=== PATIENT | male | born 1955 | race Caucasian/White ===

== ENCOUNTER 2017-08-12 18:04 | Inpatient (IN) ==
[2017-08-12] MEDS ORDERED: *HR* Dextrose 50 % in Water (Syg) 50 ML SYRINGE IVP PRN (22:37)
[2017-08-12] MEDS ORDERED: Dextrose Gel 15 GM/37.5 ML TUBE PO PRN ×2 (22:37)
[2017-08-12] MEDS ORDERED: D5% in Water 1,000 ML IVC PRN (22:37)
[2017-08-12] MEDS ORDERED: Nitroglycerin 0.4 MG TAB.SUBL SL PRN (22:38)
[2017-08-12] MEDS: *HR* HYDROcodone/Acet 5/325 mg TABLET PO PRN (23:28)
[2017-08-13] MEDS: *HR* Heparin 5,000 UNIT/ML VIAL SQ SCH ×2 (05:53→17:51)
[2017-08-13] MEDS: *HR* HYDROcodone/Acet 5/325 mg TABLET PO PRN ×2 (05:53→22:03)
[2017-08-13 07:19] LABS: Basophils % 0.2 %; Eosinophils # 0.2 K/mcL (0.0-0.6); Eosinophils % 1.2 %; Hematocrit 42.6 % (37.5-50.1); Immature Granulocytes % 0.6 % (0-4); Lymphocytes # 1.4 K/mcL (0.6-4.6); Lymphocytes % 11.5 %; Mean Corpuscular HGB Conc 32.9 g/dL (31.6-35.5); Mean Corpuscular Hemoglobin 27.2 pg (28.0-33.3); Mean Corpuscular Volume 82.9 fL (83.0-100.0); Mean Platelet Volume 9.2 fL (9.4-12.4); Monocytes # 0.8 K/mcL (0.0-1.3); Monocytes % 6.5 %; Platelet Count 252 K/mcL (140-400); Red Blood Count 5.14 M/mcL (4.19-5.50)
[2017-08-13 07:26] LABS: BUN/Creatinine Ratio 20 (6-26); Blood Urea Nitrogen 18 mg/dL (8-23); Calcium 9.4 mg/dL (8.6-10.3); Carbon Dioxide 27 mEq/L (23-29); Chloride 100 mEq/L (98-107); Glucose 155 mg/dL (70-105); Osmolality,Calculated 283 (280-300); Potassium 3.8 mEq/L (3.5-5.1); Sodium 134 mEq/L (136-145); eGFR For African Americans > 60 (> 60); eGFR For Non-African Americans > 60 (> 60)
[2017-08-13] MEDS: *HR* Metformin 500 MG TABLET PO SCH ×2 (08:05→17:46)
[2017-08-13] MEDS: Aspirin 81 MG TAB.CHEW PO SCH (08:05)
[2017-08-13] MEDS: Nicotine 21 MG PATCH.TD24 TD SCH (08:05)
[2017-08-13] MEDS: Insulin LISPRO 300 UNITS/3 ML VIAL SQ SCH ×4 (08:08→22:06)
[2017-08-13 08:11] LABS: Activated Partial Thrombo Time 31.8 Seconds (26.0-36.0); INR 1.1; Prothrombin Time 12.4 Seconds (9.4-12.1)
--- NOTE | 2017-08-13 13:26 | Internal Med History&Physical ---
Date of Encounter: 08/13/17 Time of Encounter: 13:24 Assessment and Plan (1) CVA (cerebral vascular accident) Current visit: Yes Status: Acute Patient is an admission from [facility] for rehabilitation due to secondary to CVA. Patient has right hemiparesis and expressive aphasia has residual. Patient's neurological exam appears unchanged from exams while hospitalized. Patient currently denies any discomforts or shortness of breath. Physical therapy evaluation pending with recommendations. We will have speech therapy evaluate. Will continue with current medications. We will have a goal to keep systolic blood pressure less than 160. Patient to continue on DVT prophylaxis Qualifiers: CVA mechanism: unspecified Qualified Code(s): I63.9 - Cerebral infarction, unspecified (2) Diabetes Current visit: Yes Status: Acute No acute issues. Patient to continue on fingersticks with SSI coverage. We will continue to monitor Qualifiers: Diabetes mellitus type: type 2 Diabetes mellitus usp insulin use: without superintendent terminal use Diabetes mellitus complication status: with unspecified complications Qualified Code(s): E11.8 - Type 2 diabetes mellitus with unspecified complications (3) Hypertension Current visit: Yes Status: Acute Patient said several blood pressure readings greater than 160 systolic. We will continue to monitor closely. We will start when necessary clonidine. Qualifiers: Hypertension type: essential hypertension Qualified Code(s): I10 - Essential (primary) hypertension Internal Medicine - H&P: HPI Admitted From: Intrahospital Transfer Plans for Post Hospital Care: Home History of present illness: Mr. Thompson is a 62 year old male who was transferred here from an [facility] where he was treated for a left CVA. Per medical records patient recovered well while at Hospital and continues with right hemiparesis and right facial droop. Slight expressive aphasia. Patient currently denies any discomforts or shortness of breath. Patient states he has no trouble with swallowing. Patient states a history of hypertension and diabetes. Patient states he was not very compliant with his diabetic medications or monitoring prior to his admission. Past Med Surg Social Fam HX - Past Medical History Medical history: diabetes, hypertension Psychiatric history: no psych history - Social History Smoking Status: Current every day smoker Packs per day: 3 Smokeless Tobacco Status: No Alcohol use: occasionally Drug use: none - Family History Father Family Member Ethnicity: Non- Living Status: Age at : 84 Cause of : heart attack Hx Family Cardiac Disorders: Yes Internal Medicine - H&P: Meds 3 Allergy/AdvReac Type Severity Reaction Status Date / Time No Known Allergies Allergy Verified 08/12/17 21:59 All Systems PM: A 10-system review of systems was performed and is negative for pertinent findings except as documented above in the HPI. - Constitutional Constitutional: as per HPI, no chills, no fever(s), no night sweats - EENT Eyes: no change in vision, no discharge, no pain, no photophobia Ears: no ear discharge, no ear pain, no tinnitus Nose, mouth and throat: no dysphagia, no nasal discharge, no neck pain, no sore throat - Cardiovascular Cardiovascular ROS IM: as per HPI, no chest pain, no diaphoresis, no dyspnea, no lightheadedness, no palpitations, no syncope - Respiratory Respiratory: as per HPI, no cough, no dyspnea, no wheezing, no excessive phlegm production - Gastrointestinal Gastrointestinal: no abdominal pain, no diarrhea, no hematemesis, no hematochezia, no melena, no nausea, no vomiting - Musculoskeletal Musculoskeletal ROS IM: no numbness, no tingling - Integumentary Integumentary IM: no rash, no unusual bruising - Neurological Neurological ROS: no confusion, no convulsions, no focal weakness, no numbness, no tingling, no tremor(s) - Endocrine Endocrine IM: as per HPI - Hematologic/Lymphatic Hematologic/Lymphatic: no easy bruising - Constitutional Vitals: Temp Pulse Resp BP Pulse Ox 98.0 F 75 16 143/85 92 08/13/17 07:58 08/13/17 08:58 08/13/17 08:58 08/13/17 10:00 08/13/17 08:58 General appearance: Present: A&O X 3, pleasant - Head Head exam: Present: atraumatic, normocephalic - Eye Eye exam: Present: PERRL, conjuntiva pink, sclera anicteric Pupils: Present: PERRL - Neck Neck exam general surgery: Present: supple, trachea midline. Absent: lymphadenopathy - Respiratory Respiratory exam: Present: CTAB. Absent: accessory muscle use, rales, rhonchi, wheezes Additional comments: Lungs clear throughout upper vitals undiminished to bases. Respiratory effort appears relaxed. - Cardiovascular Cardiovascular exam: Present: RRR, +S1, +S2. Absent: diastolic murmur, gallop, rubs, systolic murmur - GI/Abdominal GI/Abdominal exam: Present: normal bowel sounds, soft, no peritoneal signs. Absent: distended, tenderness - Extremities Exam Extremities exam: Present: warm, radial pulses palpable and symmetrical. Absent : calf tenderness, cyanotic, pedal edema - Neurological Exam Neurological exam: Present: CN II-XII intact, oriented X3, facial droop. Absent : pronater drift, speech deficit Additional comments: Patient shows right hemiparesis with RUE 1/5, RLE 3/5 and MS of LE 5/5. Slight right facial droop and expressive aphasia, although speech is very comprehensible. - Skin Skin exam: Present: dry, intact Internal Med - H&P Results - Labs CBC & Chem 7: 08/13/17 06:48 08/13/17 06:48 Labs: Short CBC 08/13/17 Range/Units 06:48 WBC 12.5 H (4.3-11.1) K/mcL Hgb 14.0 (12.9-16.9) g/dL Hct 42.6 (37.5-50.1) % Plt Count 252 (140-400) K/mcL Neutrophils # 10.0 H (1.6-8.9) K/mcL BMP 08/13/17 06:48 Sodium 134 L Potassium 3.8 Chloride 100 Carbon Dioxide 27 BUN 18 Creatinine 0.90 Glucose 155 H Calcium 9.4
[2017-08-14] MEDS: *HR* Heparin 5,000 UNIT/ML VIAL SQ SCH ×2 (05:52→17:43)
[2017-08-14] MEDS: *HR* HYDROcodone/Acet 5/325 mg TABLET PO PRN ×2 (05:53→21:47)
[2017-08-14] MEDS: Insulin LISPRO 300 UNITS/3 ML VIAL SQ SCH ×4 (08:01→21:48)
[2017-08-14] MEDS: Nicotine 21 MG PATCH.TD24 TD SCH (08:03)
[2017-08-14] MEDS: *HR* Metformin 500 MG TABLET PO SCH ×2 (08:03→17:43)
[2017-08-14] MEDS: Aspirin 81 MG TAB.CHEW PO SCH (08:04)
[2017-08-14] MEDS ORDERED: Ondansetron ODT 4 MG TAB.RAPDIS SL PRN (10:47)
--- NOTE | 2017-08-14 10:50 | Internal Med Progress Note ---
Date of Encounter: 08/14/17 Time of Encounter: 10:43 - Assessment and plan (1) CVA (cerebral vascular accident) Current Visit: Yes Status: Acute Assessment and plan: Patient continues with this right hemiparesis and noted slight expressive aphasia. No acute neurological changes noted on exam. Patient to continue with speech therapy and physical therapy. Patient continues to progress well with physical therapy. Qualifiers: CVA mechanism: unspecified Qualified Code(s): I63.9 - Cerebral infarction, unspecified (2) Diabetes Current Visit: Yes Status: Acute Assessment and plan: No acute issues. Patient continues with fingersticks with SSI coverage. 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 Patient continues slightly elevated systolic blood pressure mostly 150-160. Continue to monitor closely Qualifiers: Hypertension type: essential hypertension Qualified Code(s): I10 - Essential (primary) hypertension (4) Nausea Current Visit: Yes Status: Acute Assessment and plan: Patient complaints of malaise and nausea this morning. Denies any vomiting or change in bowel habits. No abdominal tenderness noted and bowel sounds normal. We will medicate with Zofran when necessary - Time Spent With Patient less than 15 minutes - Subjective Interval history: Patient appears relaxed. He c/o of feeling "run down" today with abdominal cramping and nausea. States that his nausea began after breakfast. Denies any vomiting. Denies any acute neuro changes. - Constitutional Vitals: Temp Pulse Resp BP Pulse Ox 97.9 F 79 18 153/92 93 08/14/17 09:00 08/14/17 09:00 08/14/17 09:00 08/14/17 09:00 08/14/17 09:00 General appearance: Present: A&O X 3, pleasant - Head Head exam: Present: atraumatic, normocephalic - Eye Eye exam: Present: PERRL, conjuntiva pink, sclera anicteric Pupils: Present: PERRL - Neck Neck exam general surgery: Present: supple, trachea midline. Absent: lymphadenopathy - Respiratory Respiratory exam: Present: CTAB. Absent: accessory muscle use, rales, rhonchi, wheezes - Cardiovascular Cardiovascular exam: Present: RRR, +S1, +S2. Absent: diastolic murmur, gallop, rubs, systolic murmur - GI/Abdominal GI/Abdominal exam: Present: normal bowel sounds, soft, no peritoneal signs. Absent: distended, tenderness - Extremities Exam Extremities exam: Present: warm, radial pulses palpable and symmetrical. Absent : calf tenderness, cyanotic, pedal edema - Neurological Exam Neurological exam: Present: CN II-XII intact, oriented X3, facial droop, speech deficit. Absent: pronater drift Additional comments: Patient continues with right sided facial droop and slight expressive aphasia. Right hemiparesis with RUE 2/5, RLE 3/5 and LE 5/5 - Skin Skin exam: Present: dry, intact Internal Medicine: Result - Labs CBC & Chem 7: 08/13/17 06:48 08/13/17 06:48 - ABG Interpretation ABG results: PT/INR, D-dimer PT 12.4 Seconds (9.4-12.1) H 08/13/17 06:48 Consult Discharge Plan - Plan Referrals: Ambika Underwood MD [Primary Care Provider] -
[2017-08-15] MEDS: *HR* Heparin 5,000 UNIT/ML VIAL SQ SCH ×2 (05:42→17:13)
[2017-08-15] MEDS: Insulin LISPRO 300 UNITS/3 ML VIAL SQ SCH ×4 (08:03→20:48)
[2017-08-15] MEDS: Aspirin 81 MG TAB.CHEW PO SCH (08:12)
[2017-08-15] MEDS: Nicotine 21 MG PATCH.TD24 TD SCH (08:12)
[2017-08-15] MEDS: *HR* Metformin 500 MG TABLET PO SCH ×2 (08:12→17:13)
[2017-08-15] MEDS: *HR* HYDROcodone/Acet 5/325 mg TABLET PO PRN ×2 (08:20→22:27)
--- NOTE | 2017-08-15 08:44 | Internal Med Progress Note ---
Date of Encounter: 08/15/17 Time of Encounter: 08:42 - Assessment and plan (1) Obesity Current Visit: Yes Status: Chronic Assessment and plan: advice diet control and increase in exercise to decrease his weight he seems motovated . 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 Diabetes mellitus complication status: with unspecified complications Qualified Code(s): E11.8 - Type 2 diabetes mellitus with unspecified complications (3) Hypertension Current Visit: Yes Status: Acute Assessment and plan: Systolic is high Add Henrique and HTCZ and followup target is close to 130 ideal less then 120 due to his DM only if he can tolerate Not on any meds noted Qualifiers: Hypertension type: essential hypertension Qualified Code(s): I10 - Essential (primary) hypertension (4) CVA (cerebral vascular accident) Current Visit: Yes Status: Acute Qualifiers: CVA mechanism: unspecified Qualified Code(s): I63.9 - Cerebral infarction, unspecified - Subjective Interval history: Cosss coverage no new compllains . no chest pain Nausea vomiting or diarrhea he i afebrile . - Constitutional Vitals: Temp Pulse Resp BP Pulse Ox 97.9 F 71 18 185/70 96 08/15/17 07:00 08/15/17 07:00 08/15/17 07:00 08/15/17 07:00 08/15/17 07:00 General appearance: Present: A&O X 3, morbidly obese, pleasant, answers questions appropriately - Head Head exam: Present: atraumatic - Eye Eye exam: Present: EOMI, PERRL - Neck Neck exam general surgery: Present: supple. Absent: tenderness, nuchal rigidity - Respiratory Respiratory exam: Present: CTAB. Absent: decreased breath sounds, respiratory distress, rhonchi, wheezes, tachypnea - Cardiovascular Cardiovascular exam: Present: RRR, +S1, +S2. Absent: irregular rhythm, JVD, systolic murmur, tachycardia - GI/Abdominal GI/Abdominal exam: Present: normal bowel sounds, soft. Absent: distended, firm , guarding, rebound, tenderness - Extremities Exam Extremities exam: Absent: pedal edema, tenderness - Neurological Exam Neurological exam: Present: oriented X3, facial droop (left side weakness ). Absent: speech deficit Internal Medicine: Result - Labs CBC & Chem 7: 08/13/17 06:48 08/13/17 06:48 - ABG Interpretation ABG results: PT/INR, D-dimer PT 12.4 Seconds (9.4-12.1) H 08/13/17 06:48 Consult Discharge Plan - Plan Referrals: Ambika Underwood MD [Primary Care Provider] -
[2017-08-15] MEDS: Lisinopril-HCTZ 20-12.5mg TABLET PO SCH (10:18)
[2017-08-16] MEDS: *HR* Heparin 5,000 UNIT/ML VIAL SQ SCH ×2 (07:00→16:34)
[2017-08-16] MEDS: Insulin LISPRO 300 UNITS/3 ML VIAL SQ SCH ×4 (08:54→21:03)
[2017-08-16] MEDS: Nicotine 21 MG PATCH.TD24 TD SCH (09:00)
[2017-08-16] MEDS: *HR* Metformin 500 MG TABLET PO SCH ×2 (09:00→16:31)
[2017-08-16] MEDS: Lisinopril-HCTZ 20-12.5mg TABLET PO SCH (09:01)
[2017-08-16] MEDS: Aspirin 81 MG TAB.CHEW PO SCH (09:01)
--- NOTE | 2017-08-16 09:50 | Internal Med Progress Note ---
Date of Encounter: 08/16/17 Time of Encounter: 09:48 - Assessment and plan (1) Obesity Current Visit: Yes Status: Chronic Assessment and plan: No new changes . continue to help in controlling his diet . Qualifiers: Obesity type: due to excess calories Qualified Code(s): E66.01 - Morbid ( severe) obesity due to excess calories; Z68.35 - Body mass index (BMI) 35.0-35.9 , adult; Z68.35 - Body mass index (BMI) 35.0-35.9, adult (2) Diabetes Current Visit: Yes Status: Chronic Assessment and plan: on insulin and oral meds Blood sugars some what high continue to monitor and adjust his doses as needed. UA ordered Qualifiers: Diabetes mellitus type: type 2 Diabetes mellitus rn long term care insulin use: without rn long term care use Diabetes mellitus complication status: with unspecified complications Qualified Code(s): E11.8 - Type 2 diabetes mellitus with unspecified complications (3) Hypertension Current Visit: Yes Status: Acute Assessment and plan: Stable . No new change . Continue present meds Qualifiers: Hypertension type: essential hypertension Qualified Code(s): I10 - Essential (primary) hypertension (4) CVA (cerebral vascular accident) Current Visit: Yes Status: Acute Assessment and plan: stable right weakness upper more then lower. Risk stratification Qualifiers: CVA mechanism: unspecified Qualified Code(s): I63.9 - Cerebral infarction, unspecified - Subjective Interval history: Cross coverage , slept well no acute issues no fever or chills or any other complains. Noted to have mildly increase in WBC - Constitutional Vitals: Temp Pulse Resp BP Pulse Ox 98.7 F 74 16 146/81 91 08/15/17 18:56 08/15/17 18:56 08/15/17 18:56 08/15/17 18:56 08/15/17 18:56 General appearance: Present: A&O X 3, morbidly obese, pleasant, answers questions appropriately - Head Head exam: Present: atraumatic - Eye Eye exam: Present: EOMI, PERRL. Absent: scleral icterus, conjuntiva pink, sclera anicteric Pupils: Present: PERRL - Neck Neck exam general surgery: Present: full ROM, supple. Absent: tenderness, nuchal rigidity - Respiratory Respiratory exam: Present: CTAB. Absent: accessory muscle use, chest wall tenderness, decreased breath sounds, respiratory distress, rhonchi, stridor, wheezes, tachypnea - Cardiovascular Cardiovascular exam: Present: RRR, +S1, +S2, +S3. Absent: irregular rhythm, JVD , rubs, systolic murmur - GI/Abdominal GI/Abdominal exam: Present: normal bowel sounds, soft. Absent: distended, firm , guarding, rigid, tenderness, no peritoneal signs - Extremities Exam Extremities exam: Present: pedal edema Additional comments: minimal both side - Neurological Exam Neurological exam: Present: alert, CN II-XII intact, oriented X3, facial droop Additional comments: right side upper arm more weakness then leg Internal Medicine: Result - Labs CBC & Chem 7: 08/13/17 06:48 08/13/17 06:48 - ABG Interpretation ABG results: PT/INR, D-dimer PT 12.4 Seconds (9.4-12.1) H 08/13/17 06:48 Consult Discharge Plan - Plan Referrals: Ambika Underwood MD [Primary Care Provider] -
[2017-08-16] MEDS: *HR* HYDROcodone/Acet 5/325 mg TABLET PO PRN ×2 (15:19→22:00)
[2017-08-16 16:12] LABS: Bilirubin,Urine Negative (Negative); Blood,Urine Negative (Negative); Clarity,Urine Clear (Clear); Color,Urine Yellow (Yellow); Glucose,Urine (UA) Normal (Normal); Ketones,Urine Negative (Negative); Leukocyte Esterase,Urine Negative (Negative); Nitrite,Urine Negative (Negative); PH,Urine 5.5 pH Units (5.0-8.0); Protein,Urine 100 mg/dL (Neg-Trace); Specific Gravity,Urine 1.025 (1.010-1.025); Urobilinogen,Urine Normal (Normal)
[2017-08-16 16:21] LABS: Mucus,Urine Few (Few); WBC,Urine 0-3 per hpf (0-3)
[2017-08-17 05:44] LABS: Hematocrit 39.2 % (37.5-50.1); Hemoglobin 12.9 g/dL (12.9-16.9); Mean Corpuscular HGB Conc 32.9 g/dL (31.6-35.5); Mean Corpuscular Hemoglobin 27.4 pg (28.0-33.3); Mean Corpuscular Volume 83.4 fL (83.0-100.0); Mean Platelet Volume 9.2 fL (9.4-12.4); Platelet Count 268 K/mcL (140-400); Red Cell Distribution Width 15.8 % (11.5-14.5)
[2017-08-17] MEDS: *HR* Heparin 5,000 UNIT/ML VIAL SQ SCH ×2 (05:53→17:14)
[2017-08-17] MEDS: Aspirin 81 MG TAB.CHEW PO SCH (08:43)
[2017-08-17] MEDS: Nicotine 21 MG PATCH.TD24 TD SCH (08:43)
[2017-08-17] MEDS: Lisinopril-HCTZ 20-12.5mg TABLET PO SCH (08:43)
[2017-08-17] MEDS: *HR* Metformin 500 MG TABLET PO SCH ×2 (08:43→17:14)
[2017-08-17] MEDS: Insulin LISPRO 300 UNITS/3 ML VIAL SQ SCH ×4 (08:45→21:44)
--- NOTE | 2017-08-17 13:50 | Internal Med Progress Note ---
Date of Encounter: 08/17/17 Time of Encounter: 13:48 - Assessment and plan (1) CVA (cerebral vascular accident) Current Visit: Yes Status: Acute Assessment and plan: Continue PT\OT\ST. Will follow progress. Follow up with neuro scheduled. Qualifiers: CVA mechanism: unspecified Qualified Code(s): I63.9 - Cerebral infarction, unspecified (2) Diabetes Current Visit: Yes Status: Chronic Assessment and plan: Controlled. Continue to monitor fingerstick blood sugar. Continue current medications. Will adjust as necessary. Qualifiers: Diabetes mellitus type: type 2 Diabetes mellitus adjunct faculty for medical terminology insulin use: without adjunct faculty for medical terminology use Diabetes mellitus complication status: with unspecified complications Qualified Code(s): E11.8 - Type 2 diabetes mellitus with unspecified complications (3) Hypertension Current Visit: Yes Status: Acute Assessment and plan: Controlled with current medication. Continue to monitor blood pressure. Qualifiers: Hypertension type: essential hypertension Qualified Code(s): I10 - Essential (primary) hypertension (4) Obesity Current Visit: Yes Status: Chronic Assessment and plan: Will have dietary consult for education on diet planning. Qualifiers: Obesity type: due to excess calories Qualified Code(s): E66.01 - Morbid ( severe) obesity due to excess calories; Z68.35 - Body mass index (BMI) 35.0-35.9 , adult; Z68.35 - Body mass index (BMI) 35.0-35.9, adult - Time Spent With Patient 25 - 35 minutes - Subjective Interval history: Participating well with therapy. Continues to have right-sided weakness. Slight facial weakness and dysarthria. Denies any pain. No new neurological deficits at this time. Therapy reports that ankle is rolling during transfers. Will recommend AFO. States last bowel movement was 2 days ago. Maintaining appetite and hydration. - Constitutional Vitals: Temp Pulse Resp BP Pulse Ox 97.9 F 69 18 159/84 93 08/17/17 07:32 08/17/17 07:32 08/17/17 07:32 08/17/17 07:32 08/17/17 07:32 General appearance: Present: A&O X 3, morbidly obese, pleasant, answers questions appropriately Exam: Slight facial weakness was slight dysarthria. - Head Head exam: Present: atraumatic, normocephalic - Eye Eye exam: Present: PERRL, conjuntiva pink, sclera anicteric Pupils: Present: PERRL - Neck Neck exam general surgery: Present: supple, trachea midline. Absent: lymphadenopathy - Respiratory Respiratory exam: Present: CTAB. Absent: accessory muscle use, rales, rhonchi, wheezes - Cardiovascular Cardiovascular exam: Present: RRR, +S1, +S2. Absent: diastolic murmur, gallop, rubs, systolic murmur - GI/Abdominal GI/Abdominal exam: Present: normal bowel sounds, soft, no peritoneal signs. Absent: distended, tenderness - Extremities Exam Extremities exam: Present: warm, radial pulses palpable and symmetrical. Absent : calf tenderness, cyanotic, pedal edema Additional comments: Right-sided weakness. - Neurological Exam Neurological exam: Present: CN II-XII intact, oriented X3, no focal deficits. Absent: pronater drift, facial droop, speech deficit - Skin Skin exam: Present: dry, intact Internal Medicine: Result - Labs CBC & Chem 7: 08/17/17 05:10 08/13/17 06:48 Labs: Short CBC 08/17/17 Range/Units 05:10 WBC 11.2 H (4.3-11.1) K/mcL Hgb 12.9 (12.9-16.9) g/dL Hct 39.2 (37.5-50.1) % Plt Count 268 (140-400) K/mcL Urine 08/16/17 Range/Units 15:54 Urine Color Yellow (Yellow) Urine Clarity Clear (Clear) Urine pH 5.5 (5.0-8.0) pH Units Ur Specific [place] 1.025 (1.010-1.025) Urine Protein 100 H (Neg-Trace) mg/dL Urine Glucose (UA) Normal (Normal) mg/dL - ABG Interpretation ABG results: PT/INR, D-dimer PT 12.4 Seconds (9.4-12.1) H 08/13/17 06:48 Consult Discharge Plan - Plan Referrals: Ambika Underwood MD [Primary Care Provider] -
--- NOTE | 2017-08-17 17:42 | Physcial Medicine-Consult Note ---
Date of Encounter: 08/17/17 Time of Encounter: 15:40 Physical Medicine - HPI - Data of Consult Requesting Physician: Bob Singh MD Primary Care Provider: Ambika Underwood MD - Consult Narrative History of present illness: Mr. Thompson is a 62 year old male who was transferred here from an [facility] where he was treated for a left CVA. Per medical records patient recovered well while at Hospital and continues with right hemiparesis and right facial droop. Slight expressive aphasia. Patient currently denies any discomforts or shortness of breath. Patient states he has no trouble with swallowing. Patient states a history of hypertension and diabetes. Patient states he was not very compliant with his diabetic medications or monitoring prior to his admission. CC: Bob Singh MD Past Med Surg Social Fam HX - Past Medical History Medical history: diabetes, hypertension Psychiatric history: no psych history - Social History Smoking Status: Current every day smoker Packs per day: 3 Smokeless Tobacco Status: No Alcohol use: occasionally Drug use: none - Family History Father Family Member Ethnicity: Non- Living Status: Age at : 84 Cause of : heart attack Hx Family Cardiac Disorders: Yes Medications and Allergies 3 Allergy/AdvReac Type Severity Reaction Status Date / Time No Known Allergies Allergy Verified 08/12/17 21:59 All systems: reviewed and no additional remarkable complaints except as stated ( Weakness) Physical Medicine - Exam - Constitutional Vitals: Temp Pulse Resp BP Pulse Ox 97.9 F 69 18 159/84 93 08/17/17 07:32 08/17/17 07:32 08/17/17 07:32 08/17/17 07:32 08/17/17 07:32 General appearance: cooperative, morbidly obese, no acute distress - Head Head exam: Present: atraumatic, normocephalic - Eye Eye exam: Present: EOMI - ENT ENT exam: Present: mucous membranes moist - Neck Neck exam: Present: full ROM - Respiratory Respiratory exam: Present: CTAB - Cardiovascular Cardiovascular exam: Present: RRR. Absent: diastolic murmur, rubs, systolic murmur - GI/Abdominal GI/Abdominal exam: Present: normal bowel sounds, soft - Extremities Exam Extremities exam: Present: full ROM. Absent: calf tenderness Additional comments: RUE 3/5 strength. RLE 4/5 - Neurological Exam Neurological exam: Present: abnormal gait, alert, motor sensory deficit, oriented X3, reflexes normal, facial droop. Absent: CN II-XII intact Additional comments: Sensation intact. - Psychiatric Psychiatric exam: Present: normal affect, normal mood - Skin Skin exam: Present: intact Physical Medicine - Results - Labs CBC & Chem 7: 08/17/17 05:10 08/13/17 06:48 Labs: Short CBC 08/17/17 Range/Units 05:10 WBC 11.2 H (4.3-11.1) K/mcL Hgb 12.9 (12.9-16.9) g/dL Hct 39.2 (37.5-50.1) % Plt Count 268 (140-400) K/mcL Consult Discharge Plan - Plan Referrals: Ambika Underwood MD [Primary Care Provider] -
[2017-08-17] MEDS: *HR* HYDROcodone/Acet 5/325 mg TABLET PO PRN (22:27)
[2017-08-18] MEDS: *HR* Heparin 5,000 UNIT/ML VIAL SQ SCH ×2 (05:09→17:59)
[2017-08-18] MEDS: *HR* HYDROcodone/Acet 5/325 mg TABLET PO PRN ×2 (05:16→21:22)
[2017-08-18 06:46] LABS: Thyroid Stimulating Hormone 2.245 mcIU/mL (0.340-5.600)
[2017-08-18] MEDS: Nicotine 21 MG PATCH.TD24 TD SCH (08:40)
[2017-08-18] MEDS: *HR* Metformin 500 MG TABLET PO SCH ×2 (08:41→17:04)
[2017-08-18] MEDS: Aspirin 81 MG TAB.CHEW PO SCH (08:42)
[2017-08-18] MEDS: Lisinopril-HCTZ 20-12.5mg TABLET PO SCH (08:42)
[2017-08-18] MEDS: Insulin LISPRO 300 UNITS/3 ML VIAL SQ SCH ×3 (08:42→17:00)
--- NOTE | 2017-08-18 12:34 | Internal Med Progress Note ---
Date of Encounter: 08/18/17 Time of Encounter: 12:32 - Assessment and plan (1) CVA (cerebral vascular accident) Current Visit: Yes Status: Acute Assessment and plan: Slight right patient drip with right-sided upper and lower extremity weakness. Continue PT\OT\ST. Will follow progress. Follow up with neuro scheduled. Qualifiers: CVA mechanism: unspecified Qualified Code(s): I63.9 - Cerebral infarction, unspecified (2) Diabetes Current Visit: Yes Status: Chronic Assessment and plan: Controlled. Blood sugars running between 85 and 150. Sliding scale discontinued. Continue to monitor fingerstick blood sugar. Continue current medications. Will adjust as necessary. Qualifiers: Diabetes mellitus type: type 2 Diabetes mellitus fci insulin use: without fci use Diabetes mellitus complication status: with unspecified complications Qualified Code(s): E11.8 - Type 2 diabetes mellitus with unspecified complications (3) Hypertension Current Visit: Yes Status: Acute Assessment and plan: Controlled with current medication. Continue to monitor blood pressure. Qualifiers: Hypertension type: essential hypertension Qualified Code(s): I10 - Essential (primary) hypertension (4) Obesity Current Visit: Yes Status: Chronic Assessment and plan: Will have dietary consult for education on diet planning. Qualifiers: Obesity type: due to excess calories Qualified Code(s): E66.01 - Morbid ( severe) obesity due to excess calories; Z68.35 - Body mass index (BMI) 35.0-35.9 , adult; Z68.35 - Body mass index (BMI) 35.0-35.9, adult - Time Spent With Patient 25 - 35 minutes - Subjective Interval history: Participating well with therapy. Continues to have right-sided weakness. Slight facial weakness and dysarthria. Denies any pain. No new neurological deficits at this time. Therapy reports that ankle is rolling during transfers, patient states that his ankle has always been weak and has rolled for years. Will recommend AFO. States last bowel movement was 3 days ago. Maintaining appetite and hydration. Discussed diet education and medication compliance. Patient states he wants to change lifestyle and lose weight. - Constitutional Vitals: Temp Pulse Resp BP Pulse Ox 97.6 F 68 16 158/85 94 08/18/17 07:00 08/18/17 07:00 08/18/17 07:00 08/18/17 07:00 08/18/17 07:00 General appearance: Present: A&O X 3, morbidly obese, pleasant, answers questions appropriately - Head Head exam: Present: atraumatic, normocephalic - Eye Eye exam: Present: PERRL, conjuntiva pink, sclera anicteric Pupils: Present: PERRL - Neck Neck exam general surgery: Present: supple, trachea midline. Absent: lymphadenopathy - Respiratory Respiratory exam: Present: CTAB. Absent: accessory muscle use, rales, rhonchi, wheezes - Cardiovascular Cardiovascular exam: Present: RRR, +S1, +S2. Absent: diastolic murmur, gallop, rubs, systolic murmur - GI/Abdominal GI/Abdominal exam: Present: normal bowel sounds, soft, no peritoneal signs. Absent: distended, tenderness - Extremities Exam Extremities exam: Present: warm, radial pulses palpable and symmetrical. Absent : calf tenderness, cyanotic, pedal edema - Neurological Exam Neurological exam: Present: CN II-XII intact, oriented X3. Absent: pronater drift, facial droop, speech deficit Additional comments: Slight right facial droop. Right-sided weakness. Strength in right upper arm and right lower extremity 3/ 5 - Skin Skin exam: Present: dry, intact Internal Medicine: Result - Labs CBC & Chem 7: 08/17/17 05:10 08/13/17 06:48 - ABG Interpretation ABG results: PT/INR, D-dimer PT 12.4 Seconds (9.4-12.1) H 08/13/17 06:48 Consult Discharge Plan - Plan Referrals: Ambika Underwood MD [Primary Care Provider] -
[2017-08-19] MEDS: *HR* Heparin 5,000 UNIT/ML VIAL SQ SCH ×2 (04:59→18:00)
[2017-08-19] MEDS: Insulin LISPRO 300 UNITS/3 ML VIAL SQ SCH ×3 (07:48→17:12)
[2017-08-19] MEDS: Nicotine 21 MG PATCH.TD24 TD SCH (07:48)
[2017-08-19] MEDS: Lisinopril-HCTZ 20-12.5mg TABLET PO SCH (07:49)
[2017-08-19] MEDS: Aspirin 81 MG TAB.CHEW PO SCH (07:49)
[2017-08-19] MEDS: *HR* Metformin 500 MG TABLET PO SCH ×2 (07:49→18:00)
--- NOTE | 2017-08-19 14:32 | Internal Med Progress Note ---
Date of Encounter: 08/19/17 Time of Encounter: 14:30 - Assessment and plan (1) CVA (cerebral vascular accident) Current Visit: Yes Status: Acute Assessment and plan: Slight right patient drip with right-sided upper and lower extremity weakness. Continue PT\OT\ST. Will follow progress. Follow up with neuro scheduled. Qualifiers: CVA mechanism: unspecified Qualified Code(s): I63.9 - Cerebral infarction, unspecified (2) Diabetes Current Visit: Yes Status: Chronic Assessment and plan: Controlled. Blood sugars running between 85 and 150. Sliding scale discontinued. Continue to monitor fingerstick blood sugar. Continue current medications. Will adjust as necessary. Qualifiers: Diabetes mellitus type: type 2 Diabetes mellitus mcc insulin use: without mcc use Diabetes mellitus complication status: with unspecified complications Qualified Code(s): E11.8 - Type 2 diabetes mellitus with unspecified complications (3) Hypertension Current Visit: Yes Status: Acute Assessment and plan: Controlled with current medication. Continue to monitor blood pressure. Qualifiers: Hypertension type: essential hypertension Qualified Code(s): I10 - Essential (primary) hypertension (4) Obesity Current Visit: Yes Status: Chronic Assessment and plan: Will have dietary consult for education on diet planning. Qualifiers: Obesity type: due to excess calories Qualified Code(s): E66.01 - Morbid ( severe) obesity due to excess calories; Z68.35 - Body mass index (BMI) 35.0-35.9 , adult; Z68.35 - Body mass index (BMI) 35.0-35.9, adult (5) Slow transit constipation Current Visit: Yes Status: Acute Assessment and plan: Continue Colace. Will order senna. Monitor - Time Spent With Patient 25 - 35 minutes - Subjective Interval history: Participating well with therapy. Continues to have right-sided weakness. Slight facial weakness and dysarthria. Denies any pain. No new neurological deficits at this time. Therapy reports that ankle is rolling during transfers, patient states that his ankle has always been weak and has rolled for years. Air cast ordered by animal nutritionist. States last bowel movement was 4 days ago. Offered ducalax suppository. Patient wishes to try without it. Maintaining appetite and hydration. Discussed diet education and medication compliance. Patient states he wants to change lifestyle and lose weight. States did not sleep well last night. Woke up at 3 AM and was not able to get back to sleep. - Constitutional Vitals: Temp Pulse Resp BP Pulse Ox 97.3 F L 70 16 142/94 94 08/19/17 07:00 08/19/17 07:00 08/19/17 07:00 08/19/17 07:00 08/19/17 07:00 General appearance: Present: A&O X 3, morbidly obese, pleasant, answers questions appropriately - Head Head exam: Present: atraumatic, normocephalic - Eye Eye exam: Present: PERRL, conjuntiva pink, sclera anicteric Pupils: Present: PERRL - Neck Neck exam general surgery: Present: supple, trachea midline. Absent: lymphadenopathy - Respiratory Respiratory exam: Present: CTAB. Absent: accessory muscle use, rales, rhonchi, wheezes - Cardiovascular Cardiovascular exam: Present: RRR, +S1, +S2. Absent: diastolic murmur, gallop, rubs, systolic murmur - GI/Abdominal GI/Abdominal exam: Present: normal bowel sounds, soft, no peritoneal signs. Absent: distended, tenderness - Extremities Exam Extremities exam: Present: warm, radial pulses palpable and symmetrical. Absent : calf tenderness, cyanotic, pedal edema Additional comments: Right-sided weakness. Strength 4 out of 5 right lower extremity and 3 out of 5 right upper extremity - Neurological Exam Neurological exam: Present: CN II-XII intact, oriented X3, no focal deficits. Absent: pronater drift, facial droop, speech deficit - Skin Skin exam: Present: dry, intact Internal Medicine: Result - Labs CBC & Chem 7: 08/17/17 05:10 08/13/17 06:48 - ABG Interpretation ABG results: PT/INR, D-dimer PT 12.4 Seconds (9.4-12.1) H 08/13/17 06:48 Consult Discharge Plan - Plan Referrals: Ambika Underwood MD [Primary Care Provider] -
[2017-08-19] MEDS: Sennosides 8.6 MG TABLET PO SCH (14:59)
--- NOTE | 2017-08-19 16:40 | Physical Med Progress Note ---
Date of Encounter: 08/19/17 Time of Encounter: 15:30 Assessment and Plan (1) CVA (cerebral vascular accident) Current Visit: Yes Status: Acute Assessment and plan: Getting good return in Therapy. Continue rehab. Pre gait, pre ADL strengthening. Qualifiers: CVA mechanism: unspecified Qualified Code(s): I63.9 - Cerebral infarction, unspecified (2) Constipation due to neurogenic bowel Current Visit: Yes Status: Acute Assessment and plan: BM+ continue on laxative Physical Medicine-PN: Subj Interval history: No c/o. Happy with his continued improvement. - Constitutional Vitals: Vital Signs Temp Pulse Resp BP Pulse Ox 08/19/17 07:00 97.3 F L 70 16 142/94 94 08/18/17 19:28 97.7 F 70 17 138/77 94 Intake and Output 08/19/17 08/19/17 08/19/17 07:59 15:59 23:59 Intake Total 600 / 600 360 / 360 Output Total 1075 / 1075 400 / 400 Balance -475 / -475 -40 / -40 Intake: Oral 600 / 600 360 / 360 Output: Urine 1075 / 1075 400 / 400 Other: Meal Lunch Percent of Meal Consumed 100% Blood Glucose* 150 123 - Extremities Exam Additional comments: Right side 3+/5 strength, No CCE - Neurological Exam Neurological exam: Present: abnormal gait, alert, motor sensory deficit, oriented X3, facial droop, speech deficit - Psychiatric Psychiatric exam: Present: normal affect, normal mood - Skin Skin exam: Present: intact Physical Medicine-PN: Obj Data - Labs CBC & Chem 7: 08/17/17 05:10 08/13/17 06:48 Labs: Laboratory Results - last 24 hr 08/18/17 08/18/17 08/19/17 16:18 20:14 07:45 POC Glucose 136 H 139 H 150 H 08/19/17 11:32 POC Glucose 123 H Leucocytosis FSBGs fair - ABG Interpretation ABG results: PT/INR, D-dimer PT 12.4 Seconds (9.4-12.1) H 08/13/17 06:48 Consult Discharge Plan - Plan Referrals: Ambika Underwood MD [Primary Care Provider] -
[2017-08-19] MEDS: *HR* HYDROcodone/Acet 5/325 mg TABLET PO PRN ×2 (18:03→22:52)
[2017-08-20] MEDS: *HR* Heparin 5,000 UNIT/ML VIAL SQ SCH ×2 (05:04→17:34)
[2017-08-20] MEDS: Sennosides 8.6 MG TABLET PO SCH ×2 (08:20→20:01)
[2017-08-20] MEDS: Lisinopril-HCTZ 20-12.5mg TABLET PO SCH (08:20)
[2017-08-20] MEDS: Aspirin 81 MG TAB.CHEW PO SCH (08:20)
[2017-08-20] MEDS: Nicotine 21 MG PATCH.TD24 TD SCH (08:21)
[2017-08-20] MEDS: *HR* Metformin 500 MG TABLET PO SCH ×2 (08:21→17:34)
[2017-08-20] MEDS: Insulin LISPRO 300 UNITS/3 ML VIAL SQ SCH ×3 (08:23→18:34)
--- NOTE | 2017-08-20 11:34 | Internal Med Progress Note ---
Date of Encounter: 08/20/17 Time of Encounter: 11:32 - Assessment and plan (1) CVA (cerebral vascular accident) Current Visit: Yes Status: Acute Assessment and plan: Patient continues with this right hemiparesis and noted slight expressive aphasia. Slight increase in MS on RUE, which today shows 2/5. Otherwise MS remains unchanged. Patient had reported issues with his right ankle rolling drained ambulation. Ankle brace is being obtained to maintain alignment. Patient to continue with speech therapy and physical therapy. Patient continues to progress well with physical therapy. Qualifiers: CVA mechanism: unspecified Qualified Code(s): I63.9 - Cerebral infarction, unspecified (2) Diabetes Current Visit: Yes Status: Chronic Assessment and plan: No acute issues. Patient's glucose has been fairly well-controlled with most measurements at 120-150. Patient continues with fingersticks with SSI coverage. Continue with current medication regimen Qualifiers: Diabetes mellitus type: type 2 Diabetes mellitus hide buffer insulin use: without group home use Diabetes mellitus complication status: with unspecified complications Qualified Code(s): E11.8 - Type 2 diabetes mellitus with unspecified complications (3) Hypertension Current Visit: Yes Status: Acute Assessment and plan: No acute issues. Patient continues slightly elevated systolic blood pressure mostly 150-160. Continue to monitor closely Qualifiers: Hypertension type: essential hypertension Qualified Code(s): I10 - Essential (primary) hypertension - Time Spent With Patient less than 15 minutes - Subjective Interval history: Patient appears relaxed and denies any current discomforts or shortness of breath. Patient states that he feels that physical therapy has been going well and that he has had a slight increase in movement on the right arm over the past week. Patient did complain of constipation yesterday but states that that is resolved, stating he had a bowel movement yesterday.. - Constitutional Vitals: Temp Pulse Resp BP Pulse Ox 98 F 62 17 154/89 95 08/20/17 08:57 08/20/17 08:57 08/20/17 08:57 08/20/17 08:57 08/20/17 08:57 General appearance: Present: A&O X 3, morbidly obese, pleasant, answers questions appropriately - Head Head exam: Present: atraumatic, normocephalic - Eye Eye exam: Present: PERRL, conjuntiva pink, sclera anicteric Pupils: Present: PERRL - Neck Neck exam general surgery: Present: supple, trachea midline. Absent: lymphadenopathy - Respiratory Respiratory exam: Present: CTAB. Absent: accessory muscle use, rales, rhonchi, wheezes - Cardiovascular Cardiovascular exam: Present: RRR, +S1, +S2. Absent: diastolic murmur, gallop, rubs, systolic murmur - GI/Abdominal GI/Abdominal exam: Present: normal bowel sounds, soft, no peritoneal signs. Absent: distended, tenderness - Extremities Exam Extremities exam: Present: warm, radial pulses palpable and symmetrical. Absent : calf tenderness, cyanotic, pedal edema - Neurological Exam Neurological exam: Present: CN II-XII intact, oriented X3, speech deficit. Absent: pronater drift, facial droop Additional comments: Patient continues with right hemiparesis, which has improved slightly over the past week. RUE currently shows 2/5, RLE 3/3, LE 5/5. Continued expressive aphasia, but no reports of dysphasia. - Skin Skin exam: Present: dry, intact Internal Medicine: Result - Labs CBC & Chem 7: 08/17/17 05:10 08/13/17 06:48 - ABG Interpretation ABG results: PT/INR, D-dimer PT 12.4 Seconds (9.4-12.1) H 08/13/17 06:48 Consult Discharge Plan - Plan Referrals: Ambika Underwood MD [Primary Care Provider] -
[2017-08-20] MEDS: *HR* HYDROcodone/Acet 5/325 mg TABLET PO PRN ×2 (13:10→22:09)
[2017-08-21] MEDS: *HR* Heparin 5,000 UNIT/ML VIAL SQ SCH ×2 (06:34→19:43)
[2017-08-21] MEDS: Nicotine 21 MG PATCH.TD24 TD SCH (09:05)
[2017-08-21] MEDS: Aspirin 81 MG TAB.CHEW PO SCH (09:05)
[2017-08-21] MEDS: Sennosides 8.6 MG TABLET PO SCH (09:05)
[2017-08-21] MEDS: *HR* Metformin 500 MG TABLET PO SCH ×2 (09:05→16:20)
[2017-08-21] MEDS: Cholecalciferol (D-3) 1,000 UNIT TABLET PO SCH (09:05)
[2017-08-21] MEDS: Lisinopril-HCTZ 20-12.5mg TABLET PO SCH (09:05)
[2017-08-21] MEDS: Insulin LISPRO 300 UNITS/3 ML VIAL SQ SCH ×3 (09:06→19:26)
--- NOTE | 2017-08-21 10:12 | Internal Med Progress Note ---
Date of Encounter: 08/21/17 Time of Encounter: 10:10 - Assessment and plan (1) CVA (cerebral vascular accident) Current Visit: Yes Status: Acute Assessment and plan: Patient continues with this right hemiparesis and noted slight expressive aphasia. Slight increase in MS on RE, which today shows 3/5. Pt reportedly took a few steps on the crossbars yesterday. Otherwise MS remains unchanged. Patient had reported issues with his right ankle rolling drained ambulation. Ankle brace obtained to maintain alignment. Patient to continue with speech therapy and physical therapy. Patient continues to progress well with physical therapy. Qualifiers: CVA mechanism: unspecified Qualified Code(s): I63.9 - Cerebral infarction, unspecified (2) Diabetes Current Visit: Yes Status: Chronic Assessment and plan: No acute issues. Patient's glucose has been fairly well-controlled with most measurements at 120-150. Patient continues with fingersticks with SSI coverage. Continue with current medication regimen Qualifiers: Diabetes mellitus type: type 2 Diabetes mellitus prison insulin use: without superintendent [employer] use Diabetes mellitus complication status: with unspecified complications Qualified Code(s): E11.8 - Type 2 diabetes mellitus with unspecified complications (3) Hypertension Current Visit: Yes Status: Acute Assessment and plan: No acute issues. Patient continues slightly elevated systolic blood pressure mostly 150-160. Continue to monitor closely Qualifiers: Hypertension type: essential hypertension Qualified Code(s): I10 - Essential (primary) hypertension - Time Spent With Patient less than 15 minutes - Subjective Interval history: Patient appears relaxed and denies any current discomforts or shortness of breath. Patient states that he feels that physical therapy has been going well and that he has had a slight increase in movement on the right arm and leg. Patient reports that he took a few steps on the cross bars yesterday. - Constitutional Vitals: Temp Pulse Resp BP Pulse Ox 97.6 F 65 17 156/92 93 08/21/17 08:22 08/21/17 08:22 08/21/17 08:22 08/21/17 08:22 08/21/17 08:22 General appearance: Present: A&O X 3, morbidly obese, pleasant, answers questions appropriately - Head Head exam: Present: atraumatic, normocephalic - Eye Eye exam: Present: PERRL, conjuntiva pink, sclera anicteric Pupils: Present: PERRL - Neck Neck exam general surgery: Present: supple, trachea midline. Absent: lymphadenopathy - Respiratory Respiratory exam: Present: CTAB. Absent: accessory muscle use, rales, rhonchi, wheezes Additional comments: Diminished breath sounds to the bases but otherwise clear to auscultation. Respiratory effort is relaxed - Cardiovascular Cardiovascular exam: Present: RRR, +S1, +S2. Absent: diastolic murmur, gallop, rubs, systolic murmur - GI/Abdominal GI/Abdominal exam: Present: normal bowel sounds, soft, no peritoneal signs. Absent: distended, tenderness - Extremities Exam Extremities exam: Present: warm, radial pulses palpable and symmetrical. Absent : calf tenderness, cyanotic, pedal edema - Neurological Exam Neurological exam: Present: CN II-XII intact, oriented X3. Absent: pronater drift, facial droop, speech deficit Additional comments: Patient continues with right hemiparesis with right extremities 3/5 and left extremities 5/5 for muscle strength. Noted slight expressive aphasia - Skin Skin exam: Present: dry, intact Internal Medicine: Result - Labs CBC & Chem 7: 08/17/17 05:10 08/13/17 06:48 - ABG Interpretation ABG results: PT/INR, D-dimer PT 12.4 Seconds (9.4-12.1) H 08/13/17 06:48 Consult Discharge Plan - Plan Referrals: Ambika Underwood MD [Primary Care Provider] -
[2017-08-21] MEDS: *HR* HYDROcodone/Acet 5/325 mg TABLET PO PRN ×2 (16:20→21:52)
[2017-08-22] MEDS: *HR* Heparin 5,000 UNIT/ML VIAL SQ SCH ×2 (05:02→16:44)
[2017-08-22 05:40] LABS: Hematocrit 40.4 % (37.5-50.1); Hemoglobin 13.4 g/dL (12.9-16.9); Mean Corpuscular HGB Conc 33.2 g/dL (31.6-35.5); Mean Corpuscular Hemoglobin 27.6 pg (28.0-33.3); Mean Corpuscular Volume 83.3 fL (83.0-100.0); Mean Platelet Volume 9.1 fL (9.4-12.4); Platelet Count 263 K/mcL (140-400); Red Blood Count 4.85 M/mcL (4.19-5.50); Red Cell Distribution Width 15.8 % (11.5-14.5)
[2017-08-22 05:58] LABS: Alanine Aminotransferase 38 Units/L (7-52); Albumin/Globulin Ratio 1.3 (1.1-2.2); Alkaline Phosphatase 92 Units/L (34-104); Aspartate Amino Transferase 24 Units/L (13-39); BUN/Creatinine Ratio 19 (6-26); Bilirubin,Total 0.4 mg/dL (0.3-1.0); Blood Urea Nitrogen 25 mg/dL (8-23); Calcium 9.9 mg/dL (8.6-10.3); Carbon Dioxide 30 mEq/L (23-29); Chloride 98 mEq/L (98-107); Globulin 3.2 g/dL (2.4-3.5); Glucose 138 mg/dL (70-105); Magnesium 1.9 mg/dL (1.6-2.6); Osmolality,Calculated 285 (280-300); Sodium 134 mEq/L (136-145); Total Protein 7.2 g/dL (6.4-8.9); eGFR For African Americans > 60 (> 60); eGFR For Non-African Americans 56 (> 60)
[2017-08-22] MEDS: *HR* Metformin 500 MG TABLET PO SCH ×2 (07:46→16:43)
[2017-08-22] MEDS: Nicotine 21 MG PATCH.TD24 TD SCH (07:47)
[2017-08-22] MEDS: Cholecalciferol (D-3) 1,000 UNIT TABLET PO SCH (07:47)
[2017-08-22] MEDS: Lisinopril-HCTZ 20-12.5mg TABLET PO SCH (07:47)
[2017-08-22] MEDS: Aspirin 81 MG TAB.CHEW PO SCH (07:47)
[2017-08-22] MEDS: Insulin LISPRO 300 UNITS/3 ML VIAL SQ SCH ×3 (07:49→16:36)
--- NOTE | 2017-08-22 14:12 | Internal Med Progress Note ---
Date of Encounter: 08/22/17 Time of Encounter: 14:10 - Assessment and plan (1) CVA (cerebral vascular accident) Current Visit: Yes Status: Acute Assessment and plan: Continued slow improvement. Continue with therapies as planned. Qualifiers: CVA mechanism: unspecified Qualified Code(s): I63.9 - Cerebral infarction, unspecified (2) Diabetes Current Visit: Yes Status: Chronic Assessment and plan: As before, will continue to follow but when sugars are higher as patient has been refusing sliding scale insulin. Qualifiers: Diabetes mellitus type: type 2 Diabetes mellitus retirement insulin use: without retirement use Diabetes mellitus complication status: with unspecified complications Qualified Code(s): E11.8 - Type 2 diabetes mellitus with unspecified complications (3) Hypertension Current Visit: Yes Status: Acute Assessment and plan: Clinically stable. We will continue home regimen and follow. Qualifiers: Hypertension type: essential hypertension Qualified Code(s): I10 - Essential (primary) hypertension (4) Slow transit constipation Current Visit: Yes Status: Acute Assessment and plan: Moved his bowels yesterday,. Will continue current regimen. - Time Spent With Patient 25 - 35 minutes - Subjective Interval history: Patient is very upbeat. He notes continued improvement with his right lower extremity and with his right upper extremity, to a lesser degree. Speech is improving as well - Constitutional Vitals: Temp Pulse Resp BP Pulse Ox 98.6 F 71 18 149/82 95 08/22/17 07:00 08/22/17 07:00 08/22/17 07:00 08/22/17 07:00 08/22/17 07:00 General appearance: Present: morbidly obese, pleasant, answers questions appropriately Exam: Examination: (Except as mentioned above): General: In no apparent distress. Alert and oriented 3. Nondiaphoretic. Head: Atraumatic and normocephalic. Respiratory: No use of accessory muscles. Lungs are clear throughout. Normal airflow. Cardiovascular: Regular rate and rhythm without murmur appreciated. Abdomen: Bowel sounds are normal. No hepatosplenomegaly mass or tenderness appreciated. Obese and therefore difficult to palpate deeply. Patient is examined upright in chair and this also limits exam. Extremities: No cyanosis clubbing or edema. Skin: Warm and non-diaphoretic with no new lesions noted Still with moderate right hemiparesis, as before. Internal Medicine: Result - Labs CBC & Chem 7: 08/22/17 04:55 08/22/17 04:55 Labs: Short CBC 08/22/17 Range/Units 04:55 WBC 10.7 (4.3-11.1) K/mcL Hgb 13.4 (12.9-16.9) g/dL Hct 40.4 (37.5-50.1) % Plt Count 263 (140-400) K/mcL BMP 08/22/17 04:55 Sodium 134 L Potassium 4.0 Chloride 98 Carbon Dioxide 30 H BUN 25 H Creatinine 1.29 Glucose 138 H Calcium 9.9 Liver Function 08/22/17 Range/Units 04:55 Total Bilirubin 0.4 (0.3-1.0) mg/dL AST 24 (13-39) Units/L ALT 38 (7-52) Units/L Alkaline Phosphatase 92 (34-104) Units/L Albumin 4.0 (3.5-5.7) g/dL - ABG Interpretation ABG results: PT/INR, D-dimer PT 12.4 Seconds (9.4-12.1) H 08/13/17 06:48 Consult Discharge Plan - Plan Referrals: Ambika Underwood MD [Primary Care Provider] -
[2017-08-22] MEDS: *HR* HYDROcodone/Acet 5/325 mg TABLET PO PRN ×2 (16:43→22:08)
[2017-08-23] MEDS: *HR* Heparin 5,000 UNIT/ML VIAL SQ SCH ×2 (05:16→16:38)
[2017-08-23] MEDS: Cholecalciferol (D-3) 1,000 UNIT TABLET PO SCH (07:36)
[2017-08-23] MEDS: *HR* Metformin 500 MG TABLET PO SCH ×2 (07:36→16:38)
[2017-08-23] MEDS: Lisinopril-HCTZ 20-12.5mg TABLET PO SCH (07:36)
[2017-08-23] MEDS: Aspirin 81 MG TAB.CHEW PO SCH (07:36)
[2017-08-23] MEDS: *HR* HYDROcodone/Acet 5/325 mg TABLET PO PRN ×3 (07:36→21:56)
[2017-08-23] MEDS: Nicotine 21 MG PATCH.TD24 TD SCH (07:37)
[2017-08-23] MEDS: Insulin LISPRO 300 UNITS/3 ML VIAL SQ SCH ×3 (07:38→16:35)
[2017-08-23] MEDS: Sennosides 8.6 MG TABLET PO PRN (07:45)
[2017-08-24] MEDS: *HR* Heparin 5,000 UNIT/ML VIAL SQ SCH ×2 (05:30→17:30)
[2017-08-24 07:38] LABS: Basophils # 0.1 K/mcL (0.0-0.2); Basophils % 0.5 %; Eosinophils # 0.1 K/mcL (0.0-0.6); Eosinophils % 1.2 %; Hematocrit 40.9 % (37.5-50.1); Hemoglobin 13.8 g/dL (12.9-16.9); Immature Granulocytes % 0.6 % (0-4); Lymphocytes % 18.7 %; Mean Corpuscular HGB Conc 33.7 g/dL (31.6-35.5); Mean Corpuscular Hemoglobin 27.8 pg (28.0-33.3); Mean Corpuscular Volume 82.5 fL (83.0-100.0); Mean Platelet Volume 9.2 fL (9.4-12.4); Monocytes # 0.7 K/mcL (0.0-1.3); Neutrophils # 7.9 K/mcL (1.6-8.9); Platelet Count 299 K/mcL (140-400); Red Blood Count 4.96 M/mcL (4.19-5.50); Red Cell Distribution Width 15.7 % (11.5-14.5)
[2017-08-24 08:03] LABS: BUN/Creatinine Ratio 21 (6-26); Blood Urea Nitrogen 24 mg/dL (8-23); Calcium 10.1 mg/dL (8.6-10.3); Carbon Dioxide 30 mEq/L (23-29); Chloride 96 mEq/L (98-107); Glucose 147 mg/dL (70-105); Osmolality,Calculated 283 (280-300); Potassium 4.4 mEq/L (3.5-5.1); Sodium 133 mEq/L (136-145); eGFR For African Americans > 60 (> 60); eGFR For Non-African Americans > 60 (> 60)
[2017-08-24] MEDS: *HR* Metformin 500 MG TABLET PO SCH ×2 (08:29→17:30)
[2017-08-24] MEDS: Insulin LISPRO 300 UNITS/3 ML VIAL SQ SCH ×3 (08:29→16:56)
[2017-08-24] MEDS: Aspirin 81 MG TAB.CHEW PO SCH (08:29)
[2017-08-24] MEDS: Nicotine 21 MG PATCH.TD24 TD SCH (08:29)
[2017-08-24] MEDS: Lisinopril-HCTZ 20-12.5mg TABLET PO SCH (08:29)
[2017-08-24] MEDS: Cholecalciferol (D-3) 1,000 UNIT TABLET PO SCH (10:36)
--- NOTE | 2017-08-24 10:43 | Internal Med Progress Note ---
Date of Encounter: 08/24/17 Time of Encounter: 10:41 - Assessment and plan (1) CVA (cerebral vascular accident) Current Visit: Yes Status: Acute Assessment and plan: Patient continues with this right hemiparesis and noted slight expressive aphasia. Slight increase in MS on RE, which shows 3/5. Pt reportedly took a few steps on the crossbars several days ago and continues to progress. Otherwise MS remains unchanged. Patient had reported issues with his right ankle rolling drained ambulation. Ankle brace obtained to maintain alignment. Patient to continue with speech therapy and physical therapy. Patient continues to progress well with physical therapy. Qualifiers: CVA mechanism: unspecified Qualified Code(s): I63.9 - Cerebral infarction, unspecified (2) Diabetes Current Visit: Yes Status: Chronic Assessment and plan: No acute issues. Patient's glucose has been fairly well-controlled with most measurements at 120-150. Patient continues with fingersticks with SSI coverage. Continue with current medication regimen Qualifiers: Diabetes mellitus type: type 2 Diabetes mellitus roasterman insulin use: without correction use Diabetes mellitus complication status: with unspecified complications Qualified Code(s): E11.8 - Type 2 diabetes mellitus with unspecified complications (3) Hypertension Current Visit: Yes Status: Acute Assessment and plan: No acute issues. Patient continues slightly elevated systolic blood pressure mostly 150-160. Continue to monitor closely Qualifiers: Hypertension type: essential hypertension Qualified Code(s): I10 - Essential (primary) hypertension - Time Spent With Patient less than 15 minutes - Subjective Interval history: Patient appears relaxed and denies any current discomforts or shortness of breath. Patient states that he feels that physical therapy has been going well and that he has had a slight increase in movement on the right arm and leg. - Constitutional Vitals: Temp Pulse Resp BP Pulse Ox 98.2 F 71 16 156/89 96 08/24/17 07:44 08/24/17 07:44 08/24/17 07:44 08/24/17 07:44 08/24/17 07:44 General appearance: Present: A&O X 3, morbidly obese, pleasant, answers questions appropriately - Head Head exam: Present: atraumatic, normocephalic - Eye Eye exam: Present: PERRL, conjuntiva pink, sclera anicteric Pupils: Present: PERRL - Neck Neck exam general surgery: Present: supple, trachea midline. Absent: lymphadenopathy - Respiratory Respiratory exam: Present: CTAB. Absent: accessory muscle use, rales, rhonchi, wheezes - Cardiovascular Cardiovascular exam: Present: RRR, +S1, +S2. Absent: diastolic murmur, gallop, rubs, systolic murmur - GI/Abdominal GI/Abdominal exam: Present: normal bowel sounds, soft, no peritoneal signs. Absent: distended, tenderness - Extremities Exam Extremities exam: Present: warm, radial pulses palpable and symmetrical. Absent : calf tenderness, cyanotic, pedal edema - Neurological Exam Neurological exam: Present: CN II-XII intact, oriented X3, speech deficit. Absent: pronater drift, facial droop Additional comments: Patient continues with right hemiparesis with RE at 3/5 and LE at 5/5. Mild expressive aphasia - Skin Skin exam: Present: dry, intact Internal Medicine: Result - Labs CBC & Chem 7: 08/24/17 07:17 08/24/17 07:17 Labs: Short CBC 08/24/17 Range/Units 07:17 WBC 10.8 (4.3-11.1) K/mcL Hgb 13.8 (12.9-16.9) g/dL Hct 40.9 (37.5-50.1) % Plt Count 299 (140-400) K/mcL Neutrophils # 7.9 (1.6-8.9) K/mcL BMP 08/24/17 07:17 Sodium 133 L Potassium 4.4 Chloride 96 L Carbon Dioxide 30 H BUN 24 H Creatinine 1.17 Glucose 147 H Calcium 10.1 - ABG Interpretation ABG results: PT/INR, D-dimer PT 12.4 Seconds (9.4-12.1) H 08/13/17 06:48 Consult Discharge Plan - Plan Referrals: Ambika Underwood MD [Primary Care Provider] -
--- NOTE | 2017-08-24 14:14 | Internal Med Progress Note ---
Date of Encounter: 08/23/17 Time of Encounter: 17:50 - Assessment and plan (1) CVA (cerebral vascular accident) Current Visit: Yes Status: Acute Assessment and plan: Continued slow improvement. Continue with therapies as planned. Qualifiers: CVA mechanism: unspecified Qualified Code(s): I63.9 - Cerebral infarction, unspecified (2) Diabetes Current Visit: Yes Status: Chronic Assessment and plan: As before, will continue to follow but when sugars are higher as patient has been refusing sliding scale insulin. Qualifiers: Diabetes mellitus type: type 2 Diabetes mellitus shelter insulin use: without shelter use Diabetes mellitus complication status: with unspecified complications Qualified Code(s): E11.8 - Type 2 diabetes mellitus with unspecified complications (3) Hypertension Current Visit: Yes Status: Acute Assessment and plan: Clinically stable. We will continue home regimen and follow. Qualifiers: Hypertension type: essential hypertension Qualified Code(s): I10 - Essential (primary) hypertension (4) Slow transit constipation Current Visit: Yes Status: Acute Assessment and plan: Moved his bowels yesterday,. Will continue current regimen. - Time Spent With Patient 25 - 35 minutes - Subjective Interval history: Patient without acute complaint. Doing well. He is pleased with speech and wishes that there was therapy today. Patient has no complaint of chest discomfort, dyspnea, orthopnea, palpitations, nausea or vomiting, constipation or diarrhea, other changes in bowel habits, difficulty with urination, rash or itching, or other new complaints, except as mentioned above. Review of systems is otherwise unremarkable. - Constitutional Vitals: Temp Pulse Resp BP Pulse Ox 98.2 F 71 16 156/89 96 08/24/17 07:44 08/24/17 07:44 08/24/17 07:44 08/24/17 07:44 08/24/17 07:44 General appearance: Present: pleasant, answers questions appropriately Exam: Examination: (Except as mentioned above): General: In no apparent distress. Alert and oriented 3. Nondiaphoretic. Head: Atraumatic and normocephalic. Respiratory: No use of accessory muscles. Lungs are clear throughout. Normal airflow. Cardiovascular: Regular rate and rhythm without murmur appreciated. Abdomen: Bowel sounds are normal. No hepatosplenomegaly mass or tenderness appreciated. Obese and therefore difficult to palpate deeply. Extremities: No cyanosis clubbing or edema. Skin: Warm and non-diaphoretic with no new lesions noted. Subtotal right hemiparesis, as before. Not much change since a day or 2 ago Internal Medicine: Result - Labs CBC & Chem 7: 08/24/17 07:17 08/24/17 07:17 Labs: Short CBC 08/24/17 Range/Units 07:17 WBC 10.8 (4.3-11.1) K/mcL Hgb 13.8 (12.9-16.9) g/dL Hct 40.9 (37.5-50.1) % Plt Count 299 (140-400) K/mcL Neutrophils # 7.9 (1.6-8.9) K/mcL BMP 08/24/17 07:17 Sodium 133 L Potassium 4.4 Chloride 96 L Carbon Dioxide 30 H BUN 24 H Creatinine 1.17 Glucose 147 H Calcium 10.1 - ABG Interpretation ABG results: PT/INR, D-dimer PT 12.4 Seconds (9.4-12.1) H 08/13/17 06:48 Consult Discharge Plan - Plan Referrals: Ambika Underwood MD [Primary Care Provider] -
--- NOTE | 2017-08-24 16:27 | Physical Med Progress Note ---
Date of Encounter: 08/24/17 Time of Encounter: 15:00 Assessment and Plan (1) CVA (cerebral vascular accident) Current Visit: Yes Status: Acute Assessment and plan: Getting good return in right side. Endurance improving. Ambulating in choudhury with aircast moderate assist. Max LE dressing . Transfers mod to max. Using bedside commode. Speech is signing off. Continue rehab Qualifiers: CVA mechanism: unspecified Qualified Code(s): I63.9 - Cerebral infarction, unspecified (2) Constipation due to neurogenic bowel Current Visit: Yes Status: Acute Physical Medicine-PN: Subj Interval history: No complaints. Large BM yesterday. - Constitutional Vitals: Vital Signs Temp Pulse Resp BP Pulse Ox 08/24/17 07:44 98.2 F 71 16 156/89 96 08/23/17 20:11 98.1 F 66 16 124/76 95 Intake and Output 08/24/17 08/24/17 08/24/17 07:59 15:59 23:59 Intake Total 200 / 200 490 / 490 Output Total 450 / 450 350 / 350 Balance -250 / -250 140 / 140 Intake: Oral 200 / 200 490 / 490 Output: Urine 450 / 450 350 / 350 Other: Meal Lunch Percent of Meal Consumed 100% Blood Glucose* 154 135 General appearance: cooperative, morbidly obese, no acute distress - Head Head exam: Present: atraumatic, normocephalic - Eye Eye exam: Present: EOMI - ENT ENT exam: Present: mucous membranes moist - Neck Neck exam: Present: full ROM - Respiratory Respiratory exam: Present: CTAB - Cardiovascular Cardiovascular exam: Present: RRR - GI/Abdominal GI/Abdominal exam: Present: normal bowel sounds, soft - Extremities Exam Extremities exam: Present: full ROM Additional comments: Right side strength 3+/5. No CCE. - Neurological Exam Neurological exam: Present: abnormal gait, alert, motor sensory deficit, oriented X3, facial droop, speech deficit - Psychiatric Psychiatric exam: Present: normal affect, normal mood - Skin Skin exam: Present: intact Physical Medicine-PN: Obj Data - Labs CBC & Chem 7: 08/24/17 07:17 08/24/17 07:17 Labs: Laboratory Results - last 24 hr 08/23/17 08/23/17 08/23/17 11:27 16:26 20:46 WBC RBC Hgb Hct MCV MCH MCHC RDW Plt Count MPV Immature Gran % Seg Neutrophils % Lymphocytes % Monocytes % Eosinophils % Basophils % Neutrophils # Lymphocytes # Monocytes # Eosinophils # Basophils # Sodium Potassium Chloride Carbon Dioxide BUN Creatinine Est GFR ( Amer) Est GFR (Non-Af Amer) BUN/Creatinine Ratio Glucose POC Glucose 127 H 152 H 125 H Calculated Osmolality Calcium 08/24/17 08/24/17 08/24/17 07:13 07:17 07:17 WBC 10.8 RBC 4.96 Hgb 13.8 Hct 40.9 MCV 82.5 L MCH 27.8 L MCHC 33.7 RDW 15.7 H Plt Count 299 MPV 9.2 L Immature Gran % 0.6 Seg Neutrophils % 73.0 Lymphocytes % 18.7 Monocytes % 6.0 Eosinophils % 1.2 Basophils % 0.5 Neutrophils # 7.9 Lymphocytes # 2.0 Monocytes # 0.7 Eosinophils # 0.1 Basophils # 0.1 Sodium 133 L Potassium 4.4 Chloride 96 L Carbon Dioxide 30 H BUN 24 H Creatinine 1.17 Est GFR ( Amer) > 60 Est GFR (Non-Af Amer) > 60 BUN/Creatinine Ratio 21 Glucose 147 H POC Glucose 154 H Calculated Osmolality 283 Calcium 10.1 Hyponatremia - ABG Interpretation ABG results: PT/INR, D-dimer PT 12.4 Seconds (9.4-12.1) H 08/13/17 06:48 Consult Discharge Plan - Plan Referrals: Ambika Underwood MD [Primary Care Provider] -
[2017-08-24] MEDS: *HR* HYDROcodone/Acet 5/325 mg TABLET PO PRN (17:34)
[2017-08-25] MEDS: *HR* HYDROcodone/Acet 5/325 mg TABLET PO PRN ×4 (03:38→20:47)
[2017-08-25] MEDS: *HR* Heparin 5,000 UNIT/ML VIAL SQ SCH (05:13)
[2017-08-25] MEDS: Insulin LISPRO 300 UNITS/3 ML VIAL SQ SCH ×3 (07:54→16:57)
[2017-08-25] MEDS: Aspirin 81 MG TAB.CHEW PO SCH (08:34)
[2017-08-25] MEDS: *HR* Metformin 500 MG TABLET PO SCH ×2 (08:34→17:46)
[2017-08-25] MEDS: Nicotine 21 MG PATCH.TD24 TD SCH (08:34)
[2017-08-25] MEDS: Lisinopril-HCTZ 20-12.5mg TABLET PO SCH (08:34)
[2017-08-25] MEDS: Cholecalciferol (D-3) 1,000 UNIT TABLET PO SCH (09:53)
--- NOTE | 2017-08-25 12:22 | Internal Med Progress Note ---
Date of Encounter: 08/25/17 Time of Encounter: 12:20 - Assessment and plan (1) CVA (cerebral vascular accident) Current Visit: Yes Status: Acute Assessment and plan: improving right sided weakness. Continue PT\OT\ST. Will follow progress. Follow up with neuro scheduled. Qualifiers: CVA mechanism: unspecified Qualified Code(s): I63.9 - Cerebral infarction, unspecified (2) Diabetes Current Visit: Yes Status: Chronic Assessment and plan: Controlled. Blood sugars running between 85 and 150. Sliding scale discontinued. Continue to monitor fingerstick blood sugar. Continue current medications. Will adjust as necessary. Qualifiers: Diabetes mellitus type: type 2 Diabetes mellitus correction insulin use: without terminal worker use Diabetes mellitus complication status: with unspecified complications Qualified Code(s): E11.8 - Type 2 diabetes mellitus with unspecified complications (3) Hypertension Current Visit: Yes Status: Acute Assessment and plan: Controlled with current medication. Continue to monitor blood pressure. Qualifiers: Hypertension type: essential hypertension Qualified Code(s): I10 - Essential (primary) hypertension (4) Obesity Current Visit: Yes Status: Chronic Assessment and plan: continue education Qualifiers: Obesity type: due to excess calories Qualified Code(s): E66.01 - Morbid ( severe) obesity due to excess calories; Z68.35 - Body mass index (BMI) 35.0-35.9 , adult; Z68.35 - Body mass index (BMI) 35.0-35.9, adult - Time Spent With Patient less than 15 minutes - Subjective Interval history: Participating well with therapy. Continues to have right-sided weakness. ambulating in choudhury with therapy with mod assist and aicast to ankle. Denies any pain. No new neurological deficits at this time. Maintaining appetite and hydration. bowels moving as normal. - Constitutional Vitals: Temp Pulse Resp BP Pulse Ox 97.3 F L 66 16 106/75 96 08/25/17 07:42 08/25/17 07:42 08/25/17 07:42 08/25/17 07:42 08/25/17 07:42 General appearance: Present: cooperative, A&O X 3, morbidly obese, pleasant, no acute distress, answers questions appropriately - Head Head exam: Present: atraumatic, normocephalic - Eye Eye exam: Present: PERRL, conjuntiva pink, sclera anicteric Pupils: Present: PERRL - Neck Neck exam general surgery: Present: supple, trachea midline. Absent: lymphadenopathy - Respiratory Respiratory exam: Present: CTAB. Absent: accessory muscle use, rales, rhonchi, wheezes - Cardiovascular Cardiovascular exam: Present: RRR, +S1, +S2. Absent: diastolic murmur, gallop, rubs, systolic murmur - GI/Abdominal GI/Abdominal exam: Present: normal bowel sounds, soft, no peritoneal signs. Absent: distended, tenderness - Extremities Exam Extremities exam: Present: warm, radial pulses palpable and symmetrical. Absent : calf tenderness, cyanotic, pedal edema Additional comments: right sided weakness. - Neurological Exam Neurological exam: Present: CN II-XII intact, oriented X3, no focal deficits. Absent: pronater drift, facial droop, speech deficit - Skin Skin exam: Present: dry, intact Internal Medicine: Result - Labs CBC & Chem 7: 08/24/17 07:17 08/24/17 07:17 - ABG Interpretation ABG results: PT/INR, D-dimer PT 12.4 Seconds (9.4-12.1) H 08/13/17 06:48 Consult Discharge Plan - Plan Referrals: Ambika Underwood MD [Primary Care Provider] -
[2017-08-26] MEDS: *HR* HYDROcodone/Acet 5/325 mg TABLET PO PRN ×2 (05:50→20:52)
[2017-08-26] MEDS: Insulin LISPRO 300 UNITS/3 ML VIAL SQ SCH ×3 (08:17→16:23)
[2017-08-26] MEDS: *HR* Metformin 500 MG TABLET PO SCH ×2 (08:18→16:19)
[2017-08-26] MEDS: Lisinopril-HCTZ 20-12.5mg TABLET PO SCH (08:18)
[2017-08-26] MEDS: Cholecalciferol (D-3) 1,000 UNIT TABLET PO SCH (08:18)
[2017-08-26] MEDS: Nicotine 21 MG PATCH.TD24 TD SCH (08:18)
[2017-08-26] MEDS: Aspirin 81 MG TAB.CHEW PO SCH (08:18)
--- NOTE | 2017-08-26 13:48 | Internal Med Progress Note ---
Date of Encounter: 08/26/17 Time of Encounter: 13:46 - Assessment and plan (1) CVA (cerebral vascular accident) Current Visit: Yes Status: Acute Assessment and plan: improving right sided weakness. No new neurological deficits. Continue PT\OT\ ST. Will follow progress. Follow up with neuro scheduled. Qualifiers: CVA mechanism: unspecified Qualified Code(s): I63.9 - Cerebral infarction, unspecified (2) Diabetes Current Visit: Yes Status: Chronic Assessment and plan: Controlled. Blood sugars running between 85 and 150. Sliding scale discontinued. Continue to monitor fingerstick blood sugar. Continue current medications. Will adjust as necessary. Qualifiers: Diabetes mellitus type: type 2 Diabetes mellitus terminal operator insulin use: without terminal operator use Diabetes mellitus complication status: with unspecified complications Qualified Code(s): E11.8 - Type 2 diabetes mellitus with unspecified complications (3) Hypertension Current Visit: Yes Status: Acute Assessment and plan: Controlled with current medication. Continue to monitor blood pressure. Qualifiers: Hypertension type: essential hypertension Qualified Code(s): I10 - Essential (primary) hypertension (4) Obesity Current Visit: Yes Status: Chronic Assessment and plan: continue education Qualifiers: Obesity type: due to excess calories Qualified Code(s): E66.01 - Morbid ( severe) obesity due to excess calories; Z68.35 - Body mass index (BMI) 35.0-35.9 , adult; Z68.35 - Body mass index (BMI) 35.0-35.9, adult (5) Insomnia Current Visit: Yes Status: Acute Assessment and plan: Will discuss changing Ambien to trazodone Qualifiers: Insomnia type: primary Qualified Code(s): F51.01 - Primary insomnia - Time Spent With Patient 25 - 35 minutes - Subjective Interval history: Participating well with therapy. Continues to have right-sided weakness but improving. ambulating in choudhury with therapy 20 ft with mod assist and aircast to ankle working to improve ankle from rolling. Denies any pain. No new neurological deficits at this time. Maintaining appetite and hydration. bowels moving as normal. Having difficulty sleeping. Although states he slept better last night. Takes Ambien at bedtime. - Constitutional Vitals: Temp Pulse Resp BP Pulse Ox 98.3 F 76 16 136/81 92 08/26/17 07:00 08/26/17 07:00 08/26/17 07:00 08/26/17 07:00 08/26/17 07:00 General appearance: Present: cooperative, A&O X 3, morbidly obese, pleasant, no acute distress, answers questions appropriately - Head Head exam: Present: atraumatic, normocephalic - Eye Eye exam: Present: PERRL, conjuntiva pink, sclera anicteric Pupils: Present: PERRL - Neck Neck exam general surgery: Present: supple, trachea midline. Absent: lymphadenopathy - Respiratory Respiratory exam: Present: CTAB. Absent: accessory muscle use, rales, rhonchi, wheezes - Cardiovascular Cardiovascular exam: Present: RRR, +S1, +S2. Absent: diastolic murmur, gallop, rubs, systolic murmur - GI/Abdominal GI/Abdominal exam: Present: normal bowel sounds, soft, no peritoneal signs. Absent: distended, tenderness - Extremities Exam Extremities exam: Present: warm, radial pulses palpable and symmetrical. Absent : calf tenderness, cyanotic, pedal edema Additional comments: Right lower extremity weakness - Neurological Exam Neurological exam: Present: CN II-XII intact, oriented X3, no focal deficits. Absent: pronater drift, facial droop, speech deficit - Skin Skin exam: Present: dry, intact Internal Medicine: Result - Labs CBC & Chem 7: 08/24/17 07:17 08/24/17 07:17 - ABG Interpretation ABG results: PT/INR, D-dimer PT 12.4 Seconds (9.4-12.1) H 08/13/17 06:48 Consult Discharge Plan - Plan Referrals: Ambika Underwood MD [Primary Care Provider] -
[2017-08-26] MEDS: *HR* Heparin 5,000 UNIT/ML VIAL SQ SCH (16:19)
[2017-08-27] MEDS: *HR* Heparin 5,000 UNIT/ML VIAL SQ SCH ×2 (06:59→16:37)
[2017-08-27] MEDS: *HR* Metformin 500 MG TABLET PO SCH ×2 (07:47→16:37)
[2017-08-27] MEDS: Aspirin 81 MG TAB.CHEW PO SCH (07:48)
[2017-08-27] MEDS: Nicotine 21 MG PATCH.TD24 TD SCH (07:48)
[2017-08-27] MEDS: Cholecalciferol (D-3) 1,000 UNIT TABLET PO SCH (07:48)
[2017-08-27] MEDS: Lisinopril-HCTZ 20-12.5mg TABLET PO SCH (07:48)
[2017-08-27] MEDS: Insulin LISPRO 300 UNITS/3 ML VIAL SQ SCH ×3 (07:49→16:38)
--- NOTE | 2017-08-27 14:07 | Internal Med Progress Note ---
Date of Encounter: 08/27/17 Time of Encounter: 14:04 - Assessment and plan (1) CVA (cerebral vascular accident) Current Visit: Yes Status: Acute Assessment and plan: Patient continues with this right hemiparesis and noted slight expressive aphasia. Increase in MS on RE, which shows 3/5. Pt reportedlywalked 20ft on the crossbars several days ago and continues to progress. Ankle brace obtained to maintain alignment. Patient to continue with speech therapy and physical therapy. Patient continues to progress well with physical therapy. Qualifiers: CVA mechanism: unspecified Qualified Code(s): I63.9 - Cerebral infarction, unspecified (2) Diabetes Current Visit: Yes Status: Chronic Assessment and plan: No acute issues. Patient's glucose has been fairly well-controlled with most measurements at 120-150. Patient continues with fingersticks with SSI coverage. Continue with current medication regimen Qualifiers: Diabetes mellitus type: type 2 Diabetes mellitus halfway insulin use: without halfway use Diabetes mellitus complication status: with unspecified complications Qualified Code(s): E11.8 - Type 2 diabetes mellitus with unspecified complications (3) Hypertension Current Visit: Yes Status: Acute Assessment and plan: No acute issues. Patient continues slightly elevated systolic blood pressure mostly 150-160. Continue to monitor closely Qualifiers: Hypertension type: essential hypertension Qualified Code(s): I10 - Essential (primary) hypertension - Time Spent With Patient less than 15 minutes - Subjective Interval history: Patient appears relaxed and denies any current discomforts or shortness of breath. Patient states that he feels that physical therapy has been going well and that he has had a increase in movement on the right arm and leg. - Constitutional Vitals: Temp Pulse Resp BP Pulse Ox 98.1 F 76 16 123/85 95 08/27/17 07:00 08/27/17 07:00 08/27/17 07:00 08/27/17 07:00 08/27/17 07:00 General appearance: Present: cooperative, A&O X 3, morbidly obese, pleasant, no acute distress, answers questions appropriately - Head Head exam: Present: atraumatic, normocephalic - Eye Eye exam: Present: PERRL, conjuntiva pink, sclera anicteric Pupils: Present: PERRL - Neck Neck exam general surgery: Present: supple, trachea midline. Absent: lymphadenopathy - Respiratory Respiratory exam: Present: CTAB. Absent: accessory muscle use, rales, rhonchi, wheezes - Cardiovascular Cardiovascular exam: Present: RRR, +S1, +S2. Absent: diastolic murmur, gallop, rubs, systolic murmur - GI/Abdominal GI/Abdominal exam: Present: normal bowel sounds, soft, no peritoneal signs. Absent: distended, tenderness - Extremities Exam Extremities exam: Present: warm, radial pulses palpable and symmetrical. Absent : calf tenderness, cyanotic, pedal edema - Neurological Exam Neurological exam: Present: CN II-XII intact, oriented X3. Absent: pronater drift, facial droop, speech deficit Additional comments: Patient continues with right hemiparesis and with RE 3/5 and LE 5/5. Exp aphasia - Skin Skin exam: Present: dry, intact Internal Medicine: Result - Labs CBC & Chem 7: 08/24/17 07:17 08/24/17 07:17 - ABG Interpretation ABG results: PT/INR, D-dimer PT 12.4 Seconds (9.4-12.1) H 08/13/17 06:48 Consult Discharge Plan - Plan Referrals: Ambika Underwood MD [Primary Care Provider] -
[2017-08-27] MEDS: *HR* HYDROcodone/Acet 5/325 mg TABLET PO PRN ×2 (16:44→23:18)
[2017-08-28] MEDS: *HR* HYDROcodone/Acet 5/325 mg TABLET PO PRN ×3 (04:28→18:29)
[2017-08-28] MEDS: *HR* Heparin 5,000 UNIT/ML VIAL SQ SCH ×2 (05:17→18:32)
[2017-08-28] MEDS: Cholecalciferol (D-3) 1,000 UNIT TABLET PO SCH (08:26)
[2017-08-28] MEDS: Nicotine 21 MG PATCH.TD24 TD SCH (08:26)
[2017-08-28] MEDS: Aspirin 81 MG TAB.CHEW PO SCH (08:26)
[2017-08-28] MEDS: *HR* Metformin 500 MG TABLET PO SCH ×2 (08:26→17:50)
[2017-08-28] MEDS: Lisinopril-HCTZ 20-12.5mg TABLET PO SCH (08:26)
[2017-08-28] MEDS: Sennosides 8.6 MG TABLET PO PRN (08:30)
--- NOTE | 2017-08-28 11:24 | Internal Med Progress Note ---
Date of Encounter: 08/28/17 Time of Encounter: 10:47 - Assessment and plan (1) CVA (cerebral vascular accident) Current Visit: Yes Status: Acute Assessment and plan: Patient continues with this right hemiparesis and noted slight expressive aphasia. Increase in MS on RE, which shows 3+/5. Pt reportedlywalked 20ft on the crossbars several days ago and continues to progress. Ankle brace obtained to maintain alignment. Patient has had complaints of occasional aching type pain to his right upper extremity, especially at night. We will start on Zanaflex when necessary. Patient to continue with speech therapy and physical therapy. Patient continues to progress well with physical therapy. Qualifiers: CVA mechanism: unspecified Qualified Code(s): I63.9 - Cerebral infarction, unspecified (2) Diabetes Current Visit: Yes Status: Chronic Assessment and plan: No acute issues. Patient's glucose has been fairly well-controlled with most measurements at 120-150. Patient continues with fingersticks with SSI coverage. Continue with current medication regimen Qualifiers: Diabetes mellitus type: type 2 Diabetes mellitus [facility] insulin use: without terminal press operator use Diabetes mellitus complication status: with unspecified complications Qualified Code(s): E11.8 - Type 2 diabetes mellitus with unspecified complications (3) Hypertension Current Visit: Yes Status: Acute Assessment and plan: No acute issues. Patient continues slightly elevated systolic blood pressure mostly 150-160. Continue to monitor closely Qualifiers: Hypertension type: essential hypertension Qualified Code(s): I10 - Essential (primary) hypertension - Time Spent With Patient less than 15 minutes - Subjective Interval history: Patient appears relaxed and denies any current discomforts or shortness of breath. Patient states that he did not sleep well last night due to intermittent achy type pain to his right arm. Patient states that he feels that physical therapy has been going well and that he has had a increase in movement on the right arm and leg. - Constitutional Vitals: Temp Pulse Resp BP Pulse Ox 97.6 F 64 18 132/73 96 08/28/17 07:00 08/28/17 07:00 08/28/17 07:00 08/28/17 07:00 08/28/17 07:00 General appearance: Present: cooperative, A&O X 3, morbidly obese, pleasant, no acute distress, answers questions appropriately - Head Head exam: Present: atraumatic, normocephalic - Eye Eye exam: Present: PERRL, conjuntiva pink, sclera anicteric Pupils: Present: PERRL - Neck Neck exam general surgery: Present: supple, trachea midline. Absent: lymphadenopathy - Respiratory Respiratory exam: Present: CTAB. Absent: accessory muscle use, rales, rhonchi, wheezes - Cardiovascular Cardiovascular exam: Present: RRR, +S1, +S2. Absent: diastolic murmur, gallop, rubs, systolic murmur - GI/Abdominal GI/Abdominal exam: Present: normal bowel sounds, soft, no peritoneal signs. Absent: distended, tenderness - Extremities Exam Extremities exam: Present: warm, radial pulses palpable and symmetrical. Absent : calf tenderness, cyanotic, pedal edema - Neurological Exam Neurological exam: Present: CN II-XII intact, oriented X3, speech deficit. Absent: pronater drift, facial droop Additional comments: Patient continues with right hemiparesis with right extremities showing muscle strength of 3+/5 and left extremities with muscle strength at 5/5. Continued slight expressive aphasia - Skin Skin exam: Present: dry, intact Internal Medicine: Result - Labs CBC & Chem 7: 08/24/17 07:17 08/24/17 07:17 - ABG Interpretation ABG results: PT/INR, D-dimer PT 12.4 Seconds (9.4-12.1) H 08/13/17 06:48 Consult Discharge Plan - Plan Referrals: Ambika Underwood MD [Primary Care Provider] -
[2017-08-28] MEDS: Insulin LISPRO 300 UNITS/3 ML VIAL SQ SCH ×2 (12:26→17:46)
[2017-08-28] MEDS: tiZANidine 4 MG TABLET PO PRN (21:36)
[2017-08-29] MEDS: *HR* HYDROcodone/Acet 5/325 mg TABLET PO PRN ×4 (04:31→23:42)
[2017-08-29] MEDS: tiZANidine 4 MG TABLET PO PRN ×3 (04:31→18:39)
[2017-08-29] MEDS: *HR* Heparin 5,000 UNIT/ML VIAL SQ SCH ×2 (05:23→17:19)
[2017-08-29] MEDS: Cholecalciferol (D-3) 1,000 UNIT TABLET PO SCH (08:17)
[2017-08-29] MEDS: Aspirin 81 MG TAB.CHEW PO SCH (08:17)
[2017-08-29] MEDS: *HR* Metformin 500 MG TABLET PO SCH ×2 (08:17→17:19)
[2017-08-29] MEDS: Lisinopril-HCTZ 20-12.5mg TABLET PO SCH (08:17)
[2017-08-29] MEDS: Nicotine 21 MG PATCH.TD24 TD SCH (08:18)
[2017-08-29] MEDS: Insulin LISPRO 300 UNITS/3 ML VIAL SQ SCH ×3 (08:20→17:22)
[2017-08-29] MEDS ORDERED: tiZANidine 4 MG TABLET PO PRN (17:47)
[2017-08-30] MEDS: tiZANidine 4 MG TABLET PO PRN ×3 (05:00→16:33)
[2017-08-30] MEDS: *HR* Heparin 5,000 UNIT/ML VIAL SQ SCH ×2 (05:43→16:34)
[2017-08-30] MEDS: Insulin LISPRO 300 UNITS/3 ML VIAL SQ SCH ×3 (07:52→16:30)
[2017-08-30] MEDS: *HR* Metformin 500 MG TABLET PO SCH ×2 (07:56→16:33)
[2017-08-30] MEDS: Cholecalciferol (D-3) 1,000 UNIT TABLET PO SCH (07:56)
[2017-08-30] MEDS: Aspirin 81 MG TAB.CHEW PO SCH (07:56)
[2017-08-30] MEDS: Lisinopril-HCTZ 20-12.5mg TABLET PO SCH (07:56)
[2017-08-30] MEDS: *HR* HYDROcodone/Acet 5/325 mg TABLET PO PRN ×3 (07:57→22:07)
[2017-08-30] MEDS: Nicotine 21 MG PATCH.TD24 TD SCH (07:57)
[2017-08-30] MEDS: Sennosides 8.6 MG TABLET PO PRN (11:45)
[2017-08-31] MEDS: tiZANidine 4 MG TABLET PO PRN (02:25)
[2017-08-31] MEDS: *HR* Heparin 5,000 UNIT/ML VIAL SQ SCH ×2 (05:42→17:27)
[2017-08-31] MEDS: *HR* HYDROcodone/Acet 5/325 mg TABLET PO PRN ×3 (05:45→22:38)
[2017-08-31] MEDS: Aspirin 81 MG TAB.CHEW PO SCH (09:11)
[2017-08-31] MEDS: Lisinopril-HCTZ 20-12.5mg TABLET PO SCH (09:11)
[2017-08-31] MEDS: Cholecalciferol (D-3) 1,000 UNIT TABLET PO SCH (09:11)
[2017-08-31] MEDS: Nicotine 21 MG PATCH.TD24 TD SCH (09:12)
[2017-08-31] MEDS: *HR* Metformin 500 MG TABLET PO SCH ×2 (09:12→17:27)
[2017-08-31] MEDS: Insulin LISPRO 300 UNITS/3 ML VIAL SQ SCH ×3 (09:13→16:52)
--- NOTE | 2017-08-31 11:13 | Internal Med Progress Note ---
Date of Encounter: 08/31/17 Time of Encounter: 11:11 - Assessment and plan (1) CVA (cerebral vascular accident) Current Visit: Yes Status: Acute Assessment and plan: improving right sided weakness. No new neurological deficits. Continue PT\OT\ ST. Will follow progress. Follow up with neuro scheduled. Qualifiers: CVA mechanism: unspecified Qualified Code(s): I63.9 - Cerebral infarction, unspecified (2) Diabetes Current Visit: Yes Status: Chronic Assessment and plan: Controlled. Blood sugars running between 85 and 150. Sliding scale discontinued. Continue to monitor fingerstick blood sugar. Continue current medications. Will adjust as necessary. Qualifiers: Diabetes mellitus type: type 2 Diabetes mellitus copy machine operator insulin use: without copy machine operator use Diabetes mellitus complication status: with unspecified complications Qualified Code(s): E11.8 - Type 2 diabetes mellitus with unspecified complications (3) Hypertension Current Visit: Yes Status: Acute Assessment and plan: Controlled with current medication. Continue to monitor blood pressure. Qualifiers: Hypertension type: essential hypertension Qualified Code(s): I10 - Essential (primary) hypertension (4) Obesity Current Visit: Yes Status: Chronic Assessment and plan: continue education Qualifiers: Obesity type: due to excess calories Qualified Code(s): E66.01 - Morbid ( severe) obesity due to excess calories; Z68.35 - Body mass index (BMI) 35.0-35.9 , adult; Z68.35 - Body mass index (BMI) 35.0-35.9, adult (5) Insomnia Current Visit: Yes Status: Acute Assessment and plan: improved. Qualifiers: Insomnia type: primary Qualified Code(s): F51.01 - Primary insomnia (6) Hordeolum externum right upper eyelid Current Visit: Yes Status: Acute Assessment and plan: erythromycin opthalmic ointment started. will follow for improvement. - Time Spent With Patient less than 15 minutes - Subjective Interval history: Participating well with therapy. Continues to have right-sided weakness but improving. ambulating in choudhury with therapy 80 ft with mod assist and aircast to ankle working to improve ankle from rolling. Denies any pain. No new neurological deficits at this time. Maintaining appetite and hydration. bowels moving as normal. c/o 2 day hx of right eyelid swelling with redness. no change in vision. slight itching. unaware of any contact with new hygiene products or allergen exposure. - Constitutional Vitals: Temp Pulse Resp BP Pulse Ox 97.6 F 68 12 129/80 97 08/31/17 09:54 08/31/17 09:54 08/31/17 09:54 08/31/17 09:54 08/31/17 09:54 General appearance: Present: cooperative, A&O X 3, morbidly obese, pleasant, no acute distress, answers questions appropriately - Head Head exam: Present: atraumatic, normocephalic - Eye Eye exam: Present: PERRL, conjuntiva pink, sclera anicteric Pupils: Present: PERRL Additional comments: swelling and redness of right upper eyelid with stye present - Neck Neck exam general surgery: Present: supple, trachea midline. Absent: lymphadenopathy - Respiratory Respiratory exam: Present: CTAB. Absent: accessory muscle use, rales, rhonchi, wheezes - Cardiovascular Cardiovascular exam: Present: RRR, +S1, +S2. Absent: diastolic murmur, gallop, rubs, systolic murmur - GI/Abdominal GI/Abdominal exam: Present: normal bowel sounds, soft, no peritoneal signs. Absent: distended, tenderness - Extremities Exam Extremities exam: Present: warm, radial pulses palpable and symmetrical. Absent : calf tenderness, cyanotic, pedal edema - Neurological Exam Neurological exam: Present: CN II-XII intact, oriented X3, no focal deficits. Absent: pronater drift, facial droop, speech deficit - Skin Skin exam: Present: dry, intact Internal Medicine: Result - Labs CBC & Chem 7: 08/24/17 07:17 08/24/17 07:17 - ABG Interpretation ABG results: PT/INR, D-dimer PT 12.4 Seconds (9.4-12.1) H 08/13/17 06:48 Consult Discharge Plan - Plan Referrals: Ambika Underwood MD [Primary Care Provider] -
[2017-08-31] MEDS: Erythromycin OPTH Oint RIGHT EYE SCH ×2 (14:05→20:16)
--- NOTE | 2017-08-31 18:57 | Physical Med Progress Note ---
Date of Encounter: 08/31/17 Time of Encounter: 13:40 Assessment and Plan (1) CVA (cerebral vascular accident) Current Visit: Yes Status: Acute Assessment and plan: Making excellent progress in motor strength and function. Amb 80' with hemiwalker minimal assist. ADL at min assist. Continue Rehab Qualifiers: CVA mechanism: unspecified Qualified Code(s): I63.9 - Cerebral infarction, unspecified (2) Constipation due to neurogenic bowel Current Visit: Yes Status: Acute Assessment and plan: BM+. Continue bowel program. Physical Medicine-PN: Subj Interval history: No c/o. - Constitutional Vitals: Vital Signs Temp Pulse Resp BP Pulse Ox 08/31/17 09:54 97.6 F 68 12 129/80 97 08/31/17 02:12 97.9 F 71 16 130/73 92 08/30/17 19:15 98.2 F 76 16 115/76 93 Intake and Output 08/31/17 08/31/17 08/31/17 07:59 15:59 23:59 Intake Total 477 / 477 240 / 240 Output Total 700 / 700 Balance -700 / -700 477 / 477 240 / 240 Intake: Oral 477 / 477 240 / 240 Output: Urine 700 / 700 Other: Meal Lunch Dinner Percent of Meal Consumed 100% 100% Blood Glucose* 145 116 117 General appearance: cooperative, morbidly obese, no acute distress - Head Head exam: Present: atraumatic, normocephalic - Eye Eye exam: Present: EOMI - ENT ENT exam: Present: mucous membranes moist - Neck Neck exam: Present: full ROM - Respiratory Respiratory exam: Present: CTAB - Cardiovascular Cardiovascular exam: Present: RRR - GI/Abdominal GI/Abdominal exam: Present: normal bowel sounds, soft - Extremities Exam Additional comments: Right side 3+/5 - Neurological Exam Neurological exam: Present: abnormal gait, alert, motor sensory deficit, oriented X3, facial droop - Psychiatric Psychiatric exam: Present: normal affect, normal mood - Skin Skin exam: Present: intact Physical Medicine-PN: Obj Data - Labs CBC & Chem 7: 08/24/17 07:17 08/24/17 07:17 Labs: Laboratory Results - last 24 hr 08/30/17 08/30/17 08/30/17 07:39 11:23 16:14 POC Glucose 144 H 106 H 129 H 08/30/17 08/31/17 08/31/17 19:49 11:45 16:51 POC Glucose 134 H 116 H 117 H Hyponatremia, Hyperglycemia - ABG Interpretation ABG results: PT/INR, D-dimer PT 12.4 Seconds (9.4-12.1) H 08/13/17 06:48 Consult Discharge Plan - Plan Referrals: Ambika Underwood MD [Primary Care Provider] -
[2017-09-01] MEDS: *HR* HYDROcodone/Acet 5/325 mg TABLET PO PRN ×3 (03:56→23:04)
[2017-09-01] MEDS: *HR* Heparin 5,000 UNIT/ML VIAL SQ SCH ×2 (06:16→16:39)
[2017-09-01] MEDS: Insulin LISPRO 300 UNITS/3 ML VIAL SQ SCH ×3 (07:46→16:39)
[2017-09-01] MEDS: Lisinopril-HCTZ 20-12.5mg TABLET PO SCH (10:36)
[2017-09-01] MEDS: Aspirin 81 MG TAB.CHEW PO SCH (10:37)
[2017-09-01] MEDS: Cholecalciferol (D-3) 1,000 UNIT TABLET PO SCH (10:37)
[2017-09-01] MEDS: *HR* Metformin 500 MG TABLET PO SCH ×2 (10:37→16:39)
[2017-09-01] MEDS: Nicotine 21 MG PATCH.TD24 TD SCH (10:37)
[2017-09-01] MEDS: Erythromycin OPTH Oint RIGHT EYE SCH ×3 (10:37→21:27)
--- NOTE | 2017-09-01 13:15 | Internal Med Progress Note ---
Date of Encounter: 09/01/17 Time of Encounter: 13:13 - Assessment and plan (1) CVA (cerebral vascular accident) Current Visit: Yes Status: Acute Assessment and plan: improving right sided weakness. No new neurological deficits. Continue PT\OT\ ST. Will follow progress. Follow up with neuro scheduled. Qualifiers: CVA mechanism: unspecified Qualified Code(s): I63.9 - Cerebral infarction, unspecified (2) Diabetes Current Visit: Yes Status: Chronic Assessment and plan: Controlled. Blood sugars running between 85 and 150. Sliding scale discontinued. Continue to monitor fingerstick blood sugar. Continue current medications. Will adjust as necessary. Qualifiers: Diabetes mellitus type: type 2 Diabetes mellitus voice instructor insulin use: without voice instructor use Diabetes mellitus complication status: with unspecified complications Qualified Code(s): E11.8 - Type 2 diabetes mellitus with unspecified complications (3) Hypertension Current Visit: Yes Status: Acute Assessment and plan: Controlled with current medication. Continue to monitor blood pressure. Qualifiers: Hypertension type: essential hypertension Qualified Code(s): I10 - Essential (primary) hypertension (4) Obesity Current Visit: Yes Status: Chronic Qualifiers: Obesity type: due to excess calories Qualified Code(s): E66.01 - Morbid ( severe) obesity due to excess calories; Z68.35 - Body mass index (BMI) 35.0-35.9 , adult; Z68.35 - Body mass index (BMI) 35.0-35.9, adult (5) Hordeolum externum right upper eyelid Current Visit: Yes Status: Acute Assessment and plan: improving. continue erythromycin opthalmic ointment. (6) Tobacco use disorder Current Visit: Yes Status: Acute Assessment and plan: decrease nicotine patch to 14 mg. - Time Spent With Patient less than 15 minutes - Subjective Interval history: Participating well with therapy. Continues to have right-sided weakness but improving. ambulating in choudhury with therapy 80 ft with mod assist and aircast to ankle working to improve ankle from rolling. Denies any pain. No new neurological deficits at this time. Maintaining appetite and hydration. bowels moving as normal. c/o 2 day hx of right eyelid swelling with redness. no change in vision. slight itching. unaware of any contact with new hygiene products or allergen exposure. - Constitutional Vitals: Temp Pulse Resp BP Pulse Ox 98.0 F 67 16 158/89 96 09/01/17 07:36 09/01/17 07:36 09/01/17 07:36 09/01/17 07:36 09/01/17 07:36 General appearance: Present: cooperative, A&O X 3, morbidly obese, pleasant, no acute distress, answers questions appropriately - Head Head exam: Present: atraumatic, normocephalic - Eye Eye exam: Present: PERRL, conjuntiva pink, sclera anicteric Pupils: Present: PERRL - Neck Neck exam general surgery: Present: supple, trachea midline. Absent: lymphadenopathy - Respiratory Respiratory exam: Present: CTAB. Absent: accessory muscle use, rales, rhonchi, wheezes - Cardiovascular Cardiovascular exam: Present: RRR, +S1, +S2. Absent: diastolic murmur, gallop, rubs, systolic murmur - GI/Abdominal GI/Abdominal exam: Present: normal bowel sounds, soft, no peritoneal signs. Absent: distended, tenderness - Extremities Exam Extremities exam: Present: warm, radial pulses palpable and symmetrical. Absent : calf tenderness, cyanotic, pedal edema Additional comments: weakness RLE. - Neurological Exam Neurological exam: Present: CN II-XII intact, oriented X3, no focal deficits. Absent: pronater drift, facial droop, speech deficit - Skin Skin exam: Present: dry, intact Internal Medicine: Result - Labs CBC & Chem 7: 08/24/17 07:17 08/24/17 07:17 - ABG Interpretation ABG results: PT/INR, D-dimer PT 12.4 Seconds (9.4-12.1) H 08/13/17 06:48 Consult Discharge Plan - Plan Referrals: Ambika Underwood MD [Primary Care Provider] -
[2017-09-01] MEDS: tiZANidine 4 MG TABLET PO PRN (21:27)
[2017-09-02] MEDS: *HR* Heparin 5,000 UNIT/ML VIAL SQ SCH ×2 (06:04→18:32)
[2017-09-02] MEDS: *HR* HYDROcodone/Acet 5/325 mg TABLET PO PRN ×3 (06:04→18:31)
[2017-09-02] MEDS: Insulin LISPRO 300 UNITS/3 ML VIAL SQ SCH ×3 (09:33→16:47)
[2017-09-02] MEDS: Cholecalciferol (D-3) 1,000 UNIT TABLET PO SCH (09:34)
[2017-09-02] MEDS: Lisinopril-HCTZ 20-12.5mg TABLET PO SCH (09:35)
[2017-09-02] MEDS: *HR* Metformin 500 MG TABLET PO SCH ×2 (09:35→16:52)
[2017-09-02] MEDS: Aspirin 81 MG TAB.CHEW PO SCH (09:35)
[2017-09-02] MEDS: Erythromycin OPTH Oint RIGHT EYE SCH ×3 (10:34→21:44)
[2017-09-02] MEDS: Nicotine 14 MG PATCH.TD24 TD SCH (10:35)
--- NOTE | 2017-09-02 12:03 | Internal Med Progress Note ---
Date of Encounter: 09/02/17 Time of Encounter: 12:01 - Assessment and plan (1) CVA (cerebral vascular accident) Current Visit: Yes Status: Acute Assessment and plan: Patient continues with this right hemiparesis and noted slight expressive aphasia. Increase in MS on RE, which shows 4/5. Pt reportedly walked >60 feet on the with walker during therapy and continues to progress. Ankle brace obtained to maintain alignment.. Patient to continue with speech therapy and physical therapy. Patient continues to progress well with physical therapy. Qualifiers: CVA mechanism: unspecified Qualified Code(s): I63.9 - Cerebral infarction, unspecified (2) Diabetes Current Visit: Yes Status: Chronic Assessment and plan: No acute issues. Patient's glucose has been fairly well-controlled with most measurements at 120-150. Patient continues with fingersticks with SSI coverage. 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 Patient continues slightly elevated systolic blood pressure mostly 150-160. Continue to monitor closely Qualifiers: Hypertension type: essential hypertension Qualified Code(s): I10 - Essential (primary) hypertension - Time Spent With Patient less than 15 minutes - Subjective Interval history: Patient appears relaxed and denies any current discomforts or shortness of breath. Patient states that he feels that physical therapy has been going well and that he has had a increase in movement on the right arm and leg. Patient has had reports of increasing his distance of ambulation during therapy. - Constitutional Vitals: Temp Pulse Resp BP Pulse Ox 98.1 F 74 16 111/71 96 09/02/17 07:00 09/02/17 07:00 09/02/17 07:00 09/02/17 07:00 09/02/17 07:00 General appearance: Present: cooperative, A&O X 3, morbidly obese, pleasant, no acute distress, answers questions appropriately - Head Head exam: Present: atraumatic, normocephalic - Eye Eye exam: Present: PERRL, conjuntiva pink, sclera anicteric Pupils: Present: PERRL - Neck Neck exam general surgery: Present: supple, trachea midline. Absent: lymphadenopathy - Respiratory Respiratory exam: Present: CTAB. Absent: accessory muscle use, rales, rhonchi, wheezes - Cardiovascular Cardiovascular exam: Present: RRR, +S1, +S2. Absent: diastolic murmur, gallop, rubs, systolic murmur - GI/Abdominal GI/Abdominal exam: Present: normal bowel sounds, soft, no peritoneal signs. Absent: distended, tenderness - Extremities Exam Extremities exam: Present: warm, radial pulses palpable and symmetrical. Absent : calf tenderness, cyanotic, pedal edema - Neurological Exam Neurological exam: Present: CN II-XII intact, oriented X3, speech deficit. Absent: pronater drift, facial droop Additional comments: Slight expressive aphasia. Patient continues with right hemiparesis with right extremity muscle strength 4/5 and left extremity muscle strength 5/5 - Skin Skin exam: Present: dry, intact Internal Medicine: Result - Labs CBC & Chem 7: 08/24/17 07:17 08/24/17 07:17 - ABG Interpretation ABG results: PT/INR, D-dimer PT 12.4 Seconds (9.4-12.1) H 08/13/17 06:48 Consult Discharge Plan - Plan Referrals: Ambika Underwood MD [Primary Care Provider] -
--- NOTE | 2017-09-02 21:21 | Physical Med Progress Note ---
Date of Encounter: 09/02/17 Time of Encounter: 14:00 Assessment and Plan (1) CVA (cerebral vascular accident) Current Visit: Yes Status: Acute Assessment and plan: Excellent functional and physical progress. Continue IPR Qualifiers: CVA mechanism: unspecified Qualified Code(s): I63.9 - Cerebral infarction, unspecified (2) Constipation due to neurogenic bowel Current Visit: Yes Status: Resolved Physical Medicine-PN: Subj Interval history: No c/o - Constitutional Vitals: Vital Signs Temp Pulse Resp BP Pulse Ox 09/02/17 19:14 98.2 F 76 16 120/66 93 09/02/17 07:00 98.1 F 74 16 111/71 96 Intake and Output 09/02/17 09/02/17 09/02/17 07:59 15:59 23:59 Intake Total 200 / 200 720 / 720 480 / 480 Output Total 500 / 500 Balance 200 / 200 720 / 720 -20 / -20 Intake: Oral 200 / 200 720 / 720 480 / 480 Output: Urine 500 / 500 Other: Meal Lunch Dinner Percent of Meal Consumed 100% 100% Blood Glucose* 105 125 General appearance: cooperative, morbidly obese, no acute distress - Head Head exam: Present: atraumatic, normocephalic - Eye Eye exam: Present: EOMI - ENT ENT exam: Present: mucous membranes moist - Neck Neck exam: Present: full ROM - Respiratory Respiratory exam: Present: CTAB - Cardiovascular Cardiovascular exam: Present: RRR - GI/Abdominal GI/Abdominal exam: Present: normal bowel sounds, soft - Extremities Exam Additional comments: RUE limited motion right shoulder about 110degrees limited by weakness. Right handgrasp good 3+ to 4-/5. Finger extension 3/5, weaker in two middle fingers. RLE antigravity hip flexion. Wears aircast ankle brace and it helps. - Neurological Exam Neurological exam: Present: abnormal gait, alert, motor sensory deficit, oriented X3 - Psychiatric Psychiatric exam: Present: normal affect, normal mood - Skin Skin exam: Present: intact Physical Medicine-PN: Obj Data - Labs CBC & Chem 7: 08/24/17 07:17 08/24/17 07:17 Labs: Laboratory Results - last 24 hr 09/01/17 09/02/17 09/02/17 16:36 07:50 11:52 POC Glucose 118 H 153 H 105 H 05/16/18 05/16/18 16:42 19:59 POC Glucose 124 H 125 H Hyponatremia - ABG Interpretation ABG results: PT/INR, D-dimer PT 12.4 Seconds (9.4-12.1) H 08/13/17 06:48 Consult Discharge Plan - Plan Referrals: Ambika Underwood MD [Primary Care Provider] -
[2017-09-03] MEDS: *HR* HYDROcodone/Acet 5/325 mg TABLET PO PRN ×4 (03:05→20:19)
[2017-09-03] MEDS: *HR* Heparin 5,000 UNIT/ML VIAL SQ SCH ×2 (05:34→17:02)
[2017-09-03] MEDS: Insulin LISPRO 300 UNITS/3 ML VIAL SQ SCH ×3 (08:00→17:02)
[2017-09-03] MEDS: Erythromycin OPTH Oint RIGHT EYE SCH ×3 (08:48→20:23)
[2017-09-03] MEDS: Cholecalciferol (D-3) 1,000 UNIT TABLET PO SCH (08:50)
[2017-09-03] MEDS: Lisinopril-HCTZ 20-12.5mg TABLET PO SCH (08:50)
[2017-09-03] MEDS: Nicotine 14 MG PATCH.TD24 TD SCH (08:50)
[2017-09-03] MEDS: *HR* Metformin 500 MG TABLET PO SCH ×2 (08:50→17:02)
[2017-09-03] MEDS: Aspirin 81 MG TAB.CHEW PO SCH (08:50)
--- NOTE | 2017-09-03 15:21 | Internal Med Progress Note ---
Date of Encounter: 09/03/17 Time of Encounter: 15:19 - Assessment and plan (1) CVA (cerebral vascular accident) Current Visit: Yes Status: Acute Assessment and plan: improving right sided weakness. No new neurological deficits. Continue PT\OT\ ST. Will follow progress. Follow up with neuro scheduled. Qualifiers: CVA mechanism: unspecified Qualified Code(s): I63.9 - Cerebral infarction, unspecified (2) Diabetes Current Visit: Yes Status: Chronic Assessment and plan: Controlled. Blood sugars running between 85 and 150. Sliding scale discontinued. Continue to monitor fingerstick blood sugar. Continue current medications. Will adjust as necessary. Qualifiers: Diabetes mellitus type: type 2 Diabetes mellitus manager terminal insulin use: without manager terminal use Diabetes mellitus complication status: with unspecified complications Qualified Code(s): E11.8 - Type 2 diabetes mellitus with unspecified complications (3) Hypertension Current Visit: Yes Status: Acute Assessment and plan: Controlled with current medication. Continue to monitor blood pressure. Qualifiers: Hypertension type: essential hypertension Qualified Code(s): I10 - Essential (primary) hypertension (4) Obesity Current Visit: Yes Status: Chronic Qualifiers: Obesity type: due to excess calories Qualified Code(s): E66.01 - Morbid ( severe) obesity due to excess calories; Z68.35 - Body mass index (BMI) 35.0-35.9 , adult; Z68.35 - Body mass index (BMI) 35.0-35.9, adult (5) Insomnia Current Visit: Yes Status: Acute Assessment and plan: will discontinue ambien and will start trazadone. will follow for effectiveness. Qualifiers: Insomnia type: primary Qualified Code(s): F51.01 - Primary insomnia - Time Spent With Patient less than 15 minutes - Subjective Interval history: c/o not sleeping well at night. ambien not effective. Participating well with therapy. No new neurological deficits at this time. Maintaining appetite and hydration. bowels moving as normal. - Constitutional Vitals: Temp Pulse Resp BP Pulse Ox 98.1 F 68 16 138/88 97 09/03/17 07:12 09/03/17 07:12 09/03/17 07:12 09/03/17 07:12 09/03/17 07:12 General appearance: Present: cooperative, A&O X 3, morbidly obese, pleasant, no acute distress, answers questions appropriately - Head Head exam: Present: atraumatic, normocephalic - Eye Eye exam: Present: PERRL, conjuntiva pink, sclera anicteric Pupils: Present: PERRL - Neck Neck exam general surgery: Present: supple, trachea midline. Absent: lymphadenopathy - Respiratory Respiratory exam: Present: CTAB. Absent: accessory muscle use, rales, rhonchi, wheezes - Cardiovascular Cardiovascular exam: Present: RRR, +S1, +S2. Absent: diastolic murmur, gallop, rubs, systolic murmur - GI/Abdominal GI/Abdominal exam: Present: normal bowel sounds, soft, no peritoneal signs. Absent: distended, tenderness - Extremities Exam Extremities exam: Present: warm, radial pulses palpable and symmetrical. Absent : calf tenderness, cyanotic, pedal edema - Neurological Exam Neurological exam: Present: CN II-XII intact, oriented X3, no focal deficits. Absent: pronater drift, facial droop, speech deficit - Skin Skin exam: Present: dry, intact Internal Medicine: Result - Labs CBC & Chem 7: 08/24/17 07:17 08/24/17 07:17 - ABG Interpretation ABG results: PT/INR, D-dimer PT 12.4 Seconds (9.4-12.1) H 08/13/17 06:48 Consult Discharge Plan - Plan Referrals: Ambika Underwood MD [Primary Care Provider] -
[2017-09-03] MEDS: traZODone 50 MG TABLET PO SCH (20:19)
[2017-09-04] MEDS: *HR* HYDROcodone/Acet 5/325 mg TABLET PO PRN ×5 (01:13→21:18)
[2017-09-04] MEDS: *HR* Heparin 5,000 UNIT/ML VIAL SQ SCH ×2 (05:39→17:12)
[2017-09-04] MEDS: Insulin LISPRO 300 UNITS/3 ML VIAL SQ SCH ×3 (07:42→16:56)
[2017-09-04] MEDS: Cholecalciferol (D-3) 1,000 UNIT TABLET PO SCH (08:43)
[2017-09-04] MEDS: Erythromycin OPTH Oint RIGHT EYE SCH ×3 (08:43→21:19)
[2017-09-04] MEDS: Aspirin 81 MG TAB.CHEW PO SCH (08:44)
[2017-09-04] MEDS: *HR* Metformin 500 MG TABLET PO SCH ×2 (08:44→17:12)
[2017-09-04] MEDS: Lisinopril-HCTZ 20-12.5mg TABLET PO SCH (08:44)
[2017-09-04] MEDS: Nicotine 14 MG PATCH.TD24 TD SCH (08:44)
--- NOTE | 2017-09-04 11:18 | Internal Med Progress Note ---
Date of Encounter: 09/04/17 Time of Encounter: 11:16 - Assessment and plan (1) CVA (cerebral vascular accident) Current Visit: Yes Status: Acute Assessment and plan: Patient continues with this right hemiparesis and noted slight expressive aphasia. Increase in MS on RE, which shows 4/5. Pt reportedly walked >60 feet on the with walker during therapy and continues to progress. Ankle brace obtained to maintain alignment. Patient continues with complaints of slight intermittent pain to her right arm that occurs at night when he is attempting to sleep. Patient was started on trazodone last evening which she states has provided some relief. Patient to continue with speech therapy and physical therapy. Patient continues to progress well with physical therapy. Qualifiers: CVA mechanism: unspecified Qualified Code(s): I63.9 - Cerebral infarction, unspecified (2) Diabetes Current Visit: Yes Status: Chronic Assessment and plan: No acute issues. Patient's glucose has been fairly well-controlled with most measurements at 120-150. Patient continues with fingersticks with SSI coverage. 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 Patient continues slightly elevated systolic blood pressure mostly 150-160. Continue to monitor closely Qualifiers: Hypertension type: essential hypertension Qualified Code(s): I10 - Essential (primary) hypertension - Time Spent With Patient less than 15 minutes - Subjective Interval history: Patient appears relaxed and denies any current discomforts or shortness of breath. Patient states that he continues to have intermittent right arm pain that occurs during the night why he was attempted to sleep. Patient states that he started on trazodone last evening which seemed to help. Patient states that he feels that physical therapy has been going well and that he has had a increase in movement on the right arm and leg. Patient has had reports of increasing his distance of ambulation during therapy. - Constitutional Vitals: Temp Pulse Resp BP Pulse Ox 97.6 F 61 18 130/79 96 09/04/17 06:59 09/04/17 06:59 09/04/17 06:59 09/04/17 06:59 09/04/17 06:59 General appearance: Present: cooperative, A&O X 3, morbidly obese, pleasant, no acute distress, answers questions appropriately - Head Head exam: Present: atraumatic, normocephalic - Eye Eye exam: Present: PERRL, conjuntiva pink, sclera anicteric Pupils: Present: PERRL - Neck Neck exam general surgery: Present: supple, trachea midline. Absent: lymphadenopathy - Respiratory Respiratory exam: Present: CTAB. Absent: accessory muscle use, rales, rhonchi, wheezes - Cardiovascular Cardiovascular exam: Present: RRR, +S1, +S2. Absent: diastolic murmur, gallop, rubs, systolic murmur - GI/Abdominal GI/Abdominal exam: Present: normal bowel sounds, soft, no peritoneal signs. Absent: distended, tenderness - Extremities Exam Extremities exam: Present: warm, radial pulses palpable and symmetrical. Absent : calf tenderness, cyanotic, pedal edema - Neurological Exam Neurological exam: Present: CN II-XII intact, oriented X3, speech deficit. Absent: pronater drift, facial droop Additional comments: Patient continues with slight expressive aphasia. No dysphagia reported. Right hemiparesis with right extremities at 4/5 muscle strength and left extremities at 5/5. No hyperreflexia - Skin Skin exam: Present: dry, intact Internal Medicine: Result - Labs CBC & Chem 7: 08/24/17 07:17 08/24/17 07:17 - ABG Interpretation ABG results: PT/INR, D-dimer PT 12.4 Seconds (9.4-12.1) H 08/13/17 06:48 Consult Discharge Plan - Plan Referrals: Ambika Underwood MD [Primary Care Provider] -
[2017-09-04] MEDS: traZODone 50 MG TABLET PO SCH (21:19)
[2017-09-04] MEDS: Sennosides 8.6 MG TABLET PO PRN (21:22)
[2017-09-05] MEDS: *HR* HYDROcodone/Acet 5/325 mg TABLET PO PRN ×5 (01:22→22:44)
[2017-09-05 05:07] LABS: Hematocrit 35.3 % (37.5-50.1); Hemoglobin 11.8 g/dL (12.9-16.9); Mean Corpuscular HGB Conc 33.4 g/dL (31.6-35.5); Mean Corpuscular Hemoglobin 27.6 pg (28.0-33.3); Mean Corpuscular Volume 82.7 fL (83.0-100.0); Mean Platelet Volume 9.1 fL (9.4-12.4); Platelet Count 253 K/mcL (140-400); Red Blood Count 4.27 M/mcL (4.19-5.50); Red Cell Distribution Width 15.8 % (11.5-14.5)
[2017-09-05 05:31] LABS: Alanine Aminotransferase 25 Units/L (7-52); Albumin 3.9 g/dL (3.5-5.7); Albumin/Globulin Ratio 1.3 (1.1-2.2); Alkaline Phosphatase 79 Units/L (34-104); Aspartate Amino Transferase 15 Units/L (13-39); BUN/Creatinine Ratio 19 (6-26); Bilirubin,Total 0.5 mg/dL (0.3-1.0); Blood Urea Nitrogen 23 mg/dL (8-23); Calcium 9.3 mg/dL (8.6-10.3); Carbon Dioxide 28 mEq/L (23-29); Chloride 99 mEq/L (98-107); Globulin 3.1 g/dL (2.4-3.5); Glucose 124 mg/dL (70-105); Magnesium 1.6 mg/dL (1.6-2.6); Osmolality,Calculated 285 (280-300); Sodium 135 mEq/L (136-145); eGFR For African Americans > 60 (> 60); eGFR For Non-African Americans > 60 (> 60)
[2017-09-05] MEDS: *HR* Heparin 5,000 UNIT/ML VIAL SQ SCH ×2 (06:04→17:30)
[2017-09-05] MEDS: Insulin LISPRO 300 UNITS/3 ML VIAL SQ SCH ×3 (07:27→16:51)
[2017-09-05] MEDS: Cholecalciferol (D-3) 1,000 UNIT TABLET PO SCH (08:00)
[2017-09-05] MEDS: Nicotine 14 MG PATCH.TD24 TD SCH (08:00)
[2017-09-05] MEDS: *HR* Metformin 500 MG TABLET PO SCH ×2 (08:00→17:26)
[2017-09-05] MEDS: Aspirin 81 MG TAB.CHEW PO SCH (08:00)
[2017-09-05] MEDS: Lisinopril-HCTZ 20-12.5mg TABLET PO SCH (08:00)
[2017-09-05] MEDS: Erythromycin OPTH Oint RIGHT EYE SCH ×2 (08:01→14:27)
--- NOTE | 2017-09-05 15:51 | Internal Med Progress Note ---
Date of Encounter: 09/05/17 Time of Encounter: 09:50 - Assessment and plan (1) CVA (cerebral vascular accident) Current Visit: Yes Status: Acute Assessment and plan: Continued slow improvement. He is progressing nicely. Continue with therapies as planned. Qualifiers: CVA mechanism: unspecified Qualified Code(s): I63.9 - Cerebral infarction, unspecified (2) Diabetes Current Visit: Yes Status: Chronic Assessment and plan: He is doing. Will from the standpoint. We will continue sliding scale and his current regimen.. Qualifiers: Diabetes mellitus type: type 2 Diabetes mellitus intermission coordinator insulin use: without intermission coordinator use Diabetes mellitus complication status: with unspecified complications Qualified Code(s): E11.8 - Type 2 diabetes mellitus with unspecified complications (3) Hypertension Current Visit: Yes Status: Acute Assessment and plan: Clinically stable. We will continue home regimen and follow. Qualifiers: Hypertension type: essential hypertension Qualified Code(s): I10 - Essential (primary) hypertension (4) Slow transit constipation Current Visit: Yes Status: Acute Assessment and plan: Moved his bowels as noted at 1:00 this morning. Will continue current regimen. - Subjective Interval history: Patient without acute complaint. Still not sleeping well. Feels somewhat better but woke up early. I encouraged him to try the tricyclic for a total of 3-4 nights before moving on. Right shoulder is still bothering him at night. Movement with right upper and lower extremity is improving. He is pleased with progress with therapies. Patient has no complaint of chest discomfort, dyspnea, orthopnea, palpitations, nausea or vomiting, constipation or diarrhea, other changes in bowel habits, difficulty with urination, rash or itching, or other new complaints, except as mentioned above. Review of systems is otherwise unremarkable. - Constitutional Vitals: Temp Pulse Resp BP Pulse Ox 97.6 F 71 18 150/78 93 09/05/17 07:08 09/05/17 07:08 09/05/17 07:08 09/05/17 07:08 09/05/17 07:08 General appearance: Present: cooperative, morbidly obese, pleasant, answers questions appropriately Exam: Examination: (Except as mentioned above): General: In no apparent distress. Alert and oriented 3. Nondiaphoretic. Head: Atraumatic and normocephalic. Respiratory: No use of accessory muscles. Lungs are clear throughout. Normal airflow. Cardiovascular: Regular rate and rhythm without murmur appreciated. Abdomen: Bowel sounds are normal. No hepatosplenomegaly mass or tenderness appreciated. Obese and therefore difficult to palpate deeply. Extremities: No cyanosis clubbing or edema. Skin: Warm and non-diaphoretic with no new lesions noted. He still has right hemiparesis but his speech is essentially resolved. He has movement which is approximately 4+ out of 5. Internal Medicine: Result - Labs CBC & Chem 7: 09/05/17 04:40 09/05/17 04:40 Labs: Short CBC 09/05/17 Range/Units 04:40 WBC 10.1 (4.3-11.1) K/mcL Hgb 11.8 L (12.9-16.9) g/dL Hct 35.3 L (37.5-50.1) % Plt Count 253 (140-400) K/mcL BMP 09/05/17 04:40 Sodium 135 L Potassium 4.0 Chloride 99 Carbon Dioxide 28 BUN 23 Creatinine 1.19 Glucose 124 H Calcium 9.3 Liver Function 09/05/17 Range/Units 04:40 Total Bilirubin 0.5 (0.3-1.0) mg/dL AST 15 (13-39) Units/L ALT 25 (7-52) Units/L Alkaline Phosphatase 79 (34-104) Units/L Albumin 3.9 (3.5-5.7) g/dL - ABG Interpretation ABG results: PT/INR, D-dimer PT 12.4 Seconds (9.4-12.1) H 08/13/17 06:48 - VTE Documentation of Mechanical Device: Graduated compression elastic hosiery Consult Discharge Plan - Plan Referrals: Ambika Underwood MD [Primary Care Provider] -
[2017-09-05] MEDS: traZODone 50 MG TABLET PO SCH (20:43)
[2017-09-05] MEDS: tiZANidine 4 MG TABLET PO PRN (20:43)
[2017-09-06] MEDS: *HR* Heparin 5,000 UNIT/ML VIAL SQ SCH ×2 (06:25→17:11)
[2017-09-06] MEDS: *HR* HYDROcodone/Acet 5/325 mg TABLET PO PRN ×2 (06:26→21:09)
[2017-09-06] MEDS: Insulin LISPRO 300 UNITS/3 ML VIAL SQ SCH ×3 (08:05→16:53)
[2017-09-06] MEDS: Aspirin 81 MG TAB.CHEW PO SCH (08:17)
[2017-09-06] MEDS: Cholecalciferol (D-3) 1,000 UNIT TABLET PO SCH (08:17)
[2017-09-06] MEDS: Nicotine 14 MG PATCH.TD24 TD SCH (08:17)
[2017-09-06] MEDS: Lisinopril-HCTZ 20-12.5mg TABLET PO SCH (08:17)
[2017-09-06] MEDS: *HR* Metformin 500 MG TABLET PO SCH ×2 (08:17→17:11)
[2017-09-06] MEDS: tiZANidine 4 MG TABLET PO PRN (21:10)
[2017-09-07] MEDS: traZODone 50 MG TABLET PO SCH ×2 (00:13→20:53)
[2017-09-07] MEDS: *HR* HYDROcodone/Acet 5/325 mg TABLET PO PRN ×3 (00:13→09:04)
[2017-09-07] MEDS: *HR* Heparin 5,000 UNIT/ML VIAL SQ SCH ×2 (05:56→17:49)
[2017-09-07] MEDS: Insulin LISPRO 300 UNITS/3 ML VIAL SQ SCH ×3 (09:03→17:11)
[2017-09-07] MEDS: Cholecalciferol (D-3) 1,000 UNIT TABLET PO SCH (09:03)
[2017-09-07] MEDS: Nicotine 14 MG PATCH.TD24 TD SCH (09:03)
[2017-09-07] MEDS: Lisinopril-HCTZ 20-12.5mg TABLET PO SCH (09:04)
[2017-09-07] MEDS: *HR* Metformin 500 MG TABLET PO SCH ×2 (09:04→17:49)
[2017-09-07] MEDS: Aspirin 81 MG TAB.CHEW PO SCH (09:04)
--- NOTE | 2017-09-07 11:35 | Internal Med Progress Note ---
Date of Encounter: 09/07/17 Time of Encounter: 11:32 - Assessment and plan (1) CVA (cerebral vascular accident) Current Visit: Yes Status: Acute Assessment and plan: improving right sided weakness. No new neurological deficits. Continue PT\\OT\\ ST. Will follow progress. Follow up with neuro scheduled. has parathesia in right arm. will discuss with Dr Lancaster for possible gabapentin. Qualifiers: CVA mechanism: unspecified Qualified Code(s): I63.9 - Cerebral infarction, unspecified (2) Diabetes Current Visit: Yes Status: Chronic Assessment and plan: Controlled. Blood sugars running between 85 and 150. Sliding scale discontinued. Continue to monitor fingerstick blood sugar. Continue current medications. Will adjust as necessary. Qualifiers: Diabetes mellitus type: type 2 Diabetes mellitus electronic warfare linguist insulin use: without electronic warfare linguist use Diabetes mellitus complication status: with unspecified complications Qualified Code(s): E11.8 - Type 2 diabetes mellitus with unspecified complications (3) Hypertension Current Visit: Yes Status: Acute Assessment and plan: Controlled with current medication. Continue to monitor blood pressure. Qualifiers: Hypertension type: essential hypertension Qualified Code(s): I10 - Essential (primary) hypertension (4) Obesity Current Visit: Yes Status: Chronic Assessment and plan: continue education Qualifiers: Obesity type: due to excess calories Qualified Code(s): E66.01 - Morbid ( severe) obesity due to excess calories; Z68.35 - Body mass index (BMI) 35.0-35.9 , adult; Z68.35 - Body mass index (BMI) 35.0-35.9, adult (5) Insomnia Current Visit: Yes Status: Acute Assessment and plan: continues to not sleep well at night with trazodone. will increase to 100mg. Qualifiers: Insomnia type: primary Qualified Code(s): F51.01 - Primary insomnia - Time Spent With Patient 25 - 35 minutes - Subjective Interval history: c/o still not sleeping well at night. started trazadone last week. states increased right arm pain, radiating. describes as feeling like it was asleep and is now waking up". continues to participate well with therapy. bowels moving as normal. maintaining appetite and hydration. - Constitutional Vitals: Temp Pulse Resp BP Pulse Ox 97.5 F L 58 16 117/74 96 09/07/17 07:00 09/07/17 07:00 09/07/17 07:00 09/07/17 07:00 09/07/17 07:00 General appearance: Present: cooperative, morbidly obese, pleasant, answers questions appropriately - Head Head exam: Present: atraumatic, normocephalic - Eye Eye exam: Present: PERRL, conjuntiva pink, sclera anicteric Pupils: Present: PERRL - Neck Neck exam general surgery: Present: supple, trachea midline. Absent: lymphadenopathy - Respiratory Respiratory exam: Present: CTAB. Absent: accessory muscle use, rales, rhonchi, wheezes - Cardiovascular Cardiovascular exam: Present: RRR, +S1, +S2. Absent: diastolic murmur, gallop, rubs, systolic murmur - GI/Abdominal GI/Abdominal exam: Present: normal bowel sounds, soft, no peritoneal signs. Absent: distended, tenderness - Extremities Exam Extremities exam: Present: warm, radial pulses palpable and symmetrical. Absent : calf tenderness, cyanotic, pedal edema - Neurological Exam Neurological exam: Present: CN II-XII intact, oriented X3, no focal deficits. Absent: pronater drift, facial droop, speech deficit - Skin Skin exam: Present: dry, intact Internal Medicine: Result - Labs CBC & Chem 7: 09/05/17 04:40 09/05/17 04:40 - ABG Interpretation ABG results: PT/INR, D-dimer PT 12.4 Seconds (9.4-12.1) H 08/13/17 06:48 - VTE Documentation of Mechanical Device: Graduated compression elastic hosiery Consult Discharge Plan - Plan Referrals: Ambika Underwood MD [Primary Care Provider] -
--- NOTE | 2017-09-07 17:37 | Physical Med Progress Note ---
Date of Encounter: 09/07/17 Time of Encounter: 16:00 Assessment and Plan (1) CVA (cerebral vascular accident) Current Visit: Yes Status: Acute Assessment and plan: Continues with excellent return of RUE. RLE good strength. Hospitalists are startin Neurontin at HS and increasing Trazodone for dysesthesia and soleep. Continue rehab. Will order karen bed for better bed mobility. Qualifiers: CVA mechanism: unspecified Qualified Code(s): I63.9 - Cerebral infarction, unspecified (2) Constipation due to neurogenic bowel Current Visit: Yes Status: Resolved Assessment and plan: Continues BM daily or every other day. Physical Medicine-PN: Subj Interval history: C/O RUE dysesthesia at night. Discussed with Hospitalist CARDIOVASCULAR SPECIALIST. Will start on Neurontin at night. - Constitutional Vitals: Vital Signs Temp Pulse Resp BP Pulse Ox 09/07/17 07:00 97.5 F L 58 16 117/74 96 09/06/17 19:14 97.6 F 82 16 147/87 99 Intake and Output 09/07/17 09/07/17 09/07/17 07:59 15:59 23:59 Intake Total 480 / 480 Balance 480 / 480 Intake: Oral 480 / 480 Other: Meal Breakfast Percent of Meal Consumed 95% Weight 162.25 kg Blood Glucose* 129 123 111 Patient Weight 09/07/17 23:59 Weight 162.25 kg General appearance: cooperative, morbidly obese, no acute distress - Head Head exam: Present: atraumatic, normocephalic - Eye Eye exam: Present: EOMI - ENT ENT exam: Present: mucous membranes moist - Neck Neck exam: Present: full ROM - Respiratory Respiratory exam: Present: CTAB - Cardiovascular Cardiovascular exam: Present: RRR - GI/Abdominal GI/Abdominal exam: Present: normal bowel sounds, soft - Extremities Exam Additional comments: Good strength in RLE. 3+ RUE. Fair handgrasp. No CCE. - Neurological Exam Neurological exam: Present: abnormal gait, alert, motor sensory deficit, oriented X3, facial droop, speech deficit - Psychiatric Psychiatric exam: Present: normal affect, normal mood - Skin Skin exam: Present: intact Physical Medicine-PN: Obj Data - Labs CBC & Chem 7: 09/05/17 04:40 09/05/17 04:40 Labs: Laboratory Results - last 24 hr 09/06/17 09/06/17 09/07/17 11:49 20:13 07:08 POC Glucose 118 H 143 H 129 H 09/07/17 11:36 POC Glucose 123 H Mild Hyponatremia and Anemia. FSBGs look good. - ABG Interpretation ABG results: PT/INR, D-dimer PT 12.4 Seconds (9.4-12.1) H 08/13/17 06:48 - VTE Documentation of Mechanical Device: Graduated compression elastic hosiery Consult Discharge Plan - Plan Referrals: Ambika Underwood MD [Primary Care Provider] -
[2017-09-07] MEDS: Gabapentin 300 MG CAPSULE PO SCH (20:54)
[2017-09-07] MEDS ORDERED: Gabapentin 300 MG CAPSULE PO SCH (21:00)
[2017-09-08] MEDS: *HR* HYDROcodone/Acet 5/325 mg TABLET PO PRN ×3 (02:13→22:17)
[2017-09-08] MEDS: *HR* Heparin 5,000 UNIT/ML VIAL SQ SCH ×2 (06:25→18:18)
[2017-09-08] MEDS: *HR* Metformin 500 MG TABLET PO SCH ×2 (08:09→16:37)
[2017-09-08] MEDS: Lisinopril-HCTZ 20-12.5mg TABLET PO SCH (08:09)
[2017-09-08] MEDS: Aspirin 81 MG TAB.CHEW PO SCH (08:09)
[2017-09-08] MEDS: Cholecalciferol (D-3) 1,000 UNIT TABLET PO SCH (08:09)
[2017-09-08] MEDS: Nicotine 14 MG PATCH.TD24 TD SCH (08:10)
[2017-09-08] MEDS: Insulin LISPRO 300 UNITS/3 ML VIAL SQ SCH ×3 (08:16→16:36)
--- NOTE | 2017-09-08 12:51 | Internal Med Progress Note ---
Date of Encounter: 08/30/17 Time of Encounter: 12:20 - Assessment and plan (1) CVA (cerebral vascular accident) Current Visit: Yes Status: Acute Assessment and plan: Continued slow improvement. We will continue with therapies, as planned. Qualifiers: CVA mechanism: unspecified Qualified Code(s): I63.9 - Cerebral infarction, unspecified (2) Diabetes Current Visit: Yes Status: Chronic Assessment and plan: He is reasonably controlled. He feels that his diet is such that he is not needing home medications or Accu-Cheks as often. Encouraged him to follow for a brief time. Qualifiers: Diabetes mellitus type: type 2 Diabetes mellitus shelter insulin use: without shelter use Diabetes mellitus complication status: with unspecified complications Qualified Code(s): E11.8 - Type 2 diabetes mellitus with unspecified complications (3) Hypertension Current Visit: Yes Status: Acute Assessment and plan: Clinically stable. We will continue home regimen and follow. Qualifiers: Hypertension type: essential hypertension Qualified Code(s): I10 - Essential (primary) hypertension (4) Slow transit constipation Current Visit: Yes Status: Acute Assessment and plan: Encouraged him to use when necessary laxatives, as above. - Subjective Interval history: Patient is still much sleeping well. Sleeps only hour or 2 and then wakes early without return to sleep. Feels right arm may be waking up, somewhat as this often keeps him awake. We discussed ice and this is improved. Bowel movements, still constipated. No other acute changes. Patient has no complaint of chest discomfort, dyspnea, orthopnea, palpitations, nausea or vomiting, constipation or diarrhea, other changes in bowel habits, difficulty with urination, rash or itching, or other new complaints, except as mentioned above. Review of systems is otherwise unremarkable. - Constitutional Vitals: Temp Pulse Resp BP Pulse Ox 97.6 F 64 16 123/79 93 09/08/17 06:00 09/08/17 06:00 09/08/17 06:00 09/08/17 06:00 09/08/17 06:00 General appearance: Present: cooperative, morbidly obese, pleasant, answers questions appropriately Exam: General: In no apparent distress. Alert and oriented 3. Nondiaphoretic. Head: Atraumatic and normocephalic. Respiratory: No use of accessory muscles. Lungs are clear throughout. Normal airflow. Cardiovascular: Regular rate and rhythm without murmur appreciated. Abdomen: Bowel sounds are normal. No hepatosplenomegaly mass or tenderness appreciated. Obese and therefore difficult to palpate deeply. Extremities: No cyanosis clubbing or edema. Skin: Warm and non-diaphoretic with no new lesions noted. Internal Medicine: Result - Labs CBC & Chem 7: 09/05/17 04:40 09/05/17 04:40 - ABG Interpretation ABG results: PT/INR, D-dimer PT 12.4 Seconds (9.4-12.1) H 08/13/17 06:48 - VTE Documentation of Mechanical Device: Graduated compression elastic hosiery Consult Discharge Plan - Plan Referrals: Ambika Underwood MD [Primary Care Provider] -
--- NOTE | 2017-09-08 12:55 | Internal Med Progress Note ---
Date of Encounter: 09/08/17 Time of Encounter: 12:53 - Assessment and plan (1) CVA (cerebral vascular accident) Current Visit: Yes Status: Acute Assessment and plan: improving right sided weakness. No new neurological deficits. Continue PT\OT\ ST. Will follow progress. Follow up with neuro scheduled. has parathesia in right arm. Pain was effective with gabapentin. Qualifiers: Qualified Code(s): I63.9 - Cerebral infarction, unspecified (2) Diabetes Current Visit: Yes Status: Chronic Assessment and plan: Controlled. Continue to monitor fingerstick blood sugar. Continue current medications. Will adjust as necessary. Qualifiers: Qualified Code(s): E11.8 - Type 2 diabetes mellitus with unspecified complications (3) Hypertension Current Visit: Yes Status: Acute Assessment and plan: Controlled with current medication. Continue to monitor blood pressure. Qualifiers: Qualified Code(s): I10 - Essential (primary) hypertension (4) Obesity Current Visit: Yes Status: Chronic Qualifiers: Qualified Code(s): E66.01 - Morbid (severe) obesity due to excess calories; Z68.35 - Body mass index (BMI) 35.0-35.9, adult; Z68.35 - Body mass index (BMI) 35.0-35.9, adult (5) Insomnia Current Visit: Yes Status: Acute Assessment and plan: Improving. Continue trazodone Qualifiers: Qualified Code(s): F51.01 - Primary insomnia - Time Spent With Patient less than 15 minutes - Subjective Interval history: States gabapentin was effective for right arm pain and was actually able to sleep better last night. continues to participate well with therapy. bowels moving as normal. maintaining appetite and hydration. - Constitutional Vitals: Temp Pulse Resp BP Pulse Ox 97.6 F 64 16 123/79 93 09/08/17 06:00 09/08/17 06:00 09/08/17 06:00 09/08/17 06:00 09/08/17 06:00 General appearance: Present: cooperative, morbidly obese, pleasant, answers questions appropriately - Head Head exam: Present: atraumatic, normocephalic - Eye Eye exam: Present: PERRL, conjuntiva pink, sclera anicteric Pupils: Present: PERRL - Neck Neck exam general surgery: Present: supple, trachea midline. Absent: lymphadenopathy - Respiratory Respiratory exam: Present: CTAB. Absent: accessory muscle use, rales, rhonchi, wheezes - Cardiovascular Cardiovascular exam: Present: RRR, +S1, +S2. Absent: diastolic murmur, gallop, rubs, systolic murmur - GI/Abdominal GI/Abdominal exam: Present: normal bowel sounds, soft, no peritoneal signs. Absent: distended, tenderness - Extremities Exam Extremities exam: Present: warm, radial pulses palpable and symmetrical. Absent : calf tenderness, cyanotic, pedal edema - Neurological Exam Neurological exam: Present: CN II-XII intact, oriented X3, no focal deficits. Absent: pronater drift, facial droop, speech deficit - Skin Skin exam: Present: dry, intact Internal Medicine: Result - Labs CBC & Chem 7: 09/05/17 04:40 09/05/17 04:40 - ABG Interpretation ABG results: PT/INR, D-dimer PT 12.4 Seconds (9.4-12.1) H 08/13/17 06:48 - VTE Documentation of Mechanical Device: Graduated compression elastic hosiery Consult Discharge Plan - Plan Referrals: Ambika Underwood MD [Primary Care Provider] -
--- NOTE | 2017-09-08 12:57 | Internal Med Progress Note ---
Date of Encounter: 08/30/17 Time of Encounter: 21:40 - Assessment and plan (1) CVA (cerebral vascular accident) Current Visit: Yes Status: Acute Assessment and plan: Continued slow improvement. We will continue with therapies, as planned. Again, encouraged use of when necessary laxatives. Qualifiers: CVA mechanism: unspecified Qualified Code(s): I63.9 - Cerebral infarction, unspecified (2) Diabetes Current Visit: Yes Status: Chronic Assessment and plan: He is reasonably controlled. No acute issues. Qualifiers: Diabetes mellitus type: type 2 Diabetes mellitus keno terminal operator insulin use: without [facility] use Diabetes mellitus complication status: with unspecified complications Qualified Code(s): E11.8 - Type 2 diabetes mellitus with unspecified complications (3) Hypertension Current Visit: Yes Status: Acute Assessment and plan: Clinically stable. We will continue home regimen and follow. Qualifiers: Hypertension type: essential hypertension Qualified Code(s): I10 - Essential (primary) hypertension (4) Slow transit constipation Current Visit: Yes Status: Acute Assessment and plan: Encouraged him to use when necessary laxatives, as above. - Subjective Interval history: Ice has helped him sleep better. He denies other problems. No other acute issues although he admits to not moving his bowels, well. Patient has no complaint of chest discomfort, dyspnea, orthopnea, palpitations, nausea or vomiting, constipation or diarrhea, other changes in bowel habits, difficulty with urination, rash or itching, or other new complaints, except as mentioned above. Review of systems is otherwise unremarkable. - Constitutional Vitals: Temp Pulse Resp BP Pulse Ox 97.6 F 64 16 123/79 93 09/08/17 06:00 09/08/17 06:00 09/08/17 06:00 09/08/17 06:00 09/08/17 06:00 General appearance: Present: cooperative, morbidly obese, pleasant, answers questions appropriately Exam: Examination: (Except as mentioned above): General: In no apparent distress. Alert and oriented 3. Nondiaphoretic. Head: Atraumatic and normocephalic. Respiratory: No use of accessory muscles. Lungs are clear throughout. Normal airflow. Cardiovascular: Regular rate and rhythm without murmur appreciated. Abdomen: Bowel sounds are normal. No hepatosplenomegaly mass or tenderness appreciated. Obese and therefore difficult to palpate deeply. Extremities: No cyanosis clubbing or edema. Skin: Warm and non-diaphoretic with no new lesions noted. Internal Medicine: Result - Labs CBC & Chem 7: 09/05/17 04:40 09/05/17 04:40 - ABG Interpretation ABG results: PT/INR, D-dimer PT 12.4 Seconds (9.4-12.1) H 08/13/17 06:48 - VTE Documentation of Mechanical Device: Graduated compression elastic hosiery Consult Discharge Plan - Plan Referrals: Ambika Underwood MD [Primary Care Provider] -
[2017-09-08] MEDS: Gabapentin 300 MG CAPSULE PO SCH (19:48)
[2017-09-08] MEDS: traZODone 50 MG TABLET PO SCH (19:49)
[2017-09-09] MEDS: tiZANidine 4 MG TABLET PO PRN (00:23)
[2017-09-09] MEDS: *HR* HYDROcodone/Acet 5/325 mg TABLET PO PRN ×4 (03:30→22:49)
[2017-09-09] MEDS: *HR* Heparin 5,000 UNIT/ML VIAL SQ SCH ×2 (05:27→16:57)
[2017-09-09] MEDS: Insulin LISPRO 300 UNITS/3 ML VIAL SQ SCH ×3 (07:41→16:53)
[2017-09-09] MEDS: *HR* Metformin 500 MG TABLET PO SCH ×2 (08:19→16:57)
[2017-09-09] MEDS: Aspirin 81 MG TAB.CHEW PO SCH (08:19)
[2017-09-09] MEDS: Lisinopril-HCTZ 20-12.5mg TABLET PO SCH (08:20)
[2017-09-09] MEDS: Cholecalciferol (D-3) 1,000 UNIT TABLET PO SCH (08:20)
[2017-09-09] MEDS: Nicotine 14 MG PATCH.TD24 TD SCH (08:20)
--- NOTE | 2017-09-09 09:26 | Internal Med Progress Note ---
Date of Encounter: 09/09/17 Time of Encounter: :23 - Assessment and plan (1) CVA (cerebral vascular accident) Current Visit: Yes Status: Acute Assessment and plan: improving right sided weakness. No new neurological deficits. Continue PT\OT\ ST. Will follow progress. Follow up with neuro scheduled. has parathesia in right arm. Pain was improving with gabapentin. will discuss increasing dosage. Qualifiers: CVA mechanism: unspecified Qualified Code(s): I63.9 - Cerebral infarction, unspecified (2) Diabetes Current Visit: Yes Status: Chronic Assessment and plan: Controlled. glucose running between 100-130. Continue to monitor fingerstick blood sugar. Continue current medications. Will adjust as necessary. Qualifiers: Diabetes mellitus type: type 2 Diabetes mellitus termination clerk insulin use: without termination clerk use Diabetes mellitus complication status: with unspecified complications Qualified Code(s): E11.8 - Type 2 diabetes mellitus with unspecified complications (3) Hypertension Current Visit: Yes Status: Acute Assessment and plan: Controlled with current medication. Continue to monitor blood pressure. Qualifiers: Hypertension type: essential hypertension Qualified Code(s): I10 - Essential (primary) hypertension (4) Obesity Current Visit: Yes Status: Chronic Qualifiers: Obesity type: due to excess calories Qualified Code(s): E66.01 - Morbid ( severe) obesity due to excess calories; Z68.35 - Body mass index (BMI) 35.0-35.9 , adult; Z68.35 - Body mass index (BMI) 35.0-35.9, adult (5) Insomnia Current Visit: Yes Status: Acute Assessment and plan: Improving. Continue trazodone Qualifiers: Insomnia type: primary Qualified Code(s): F51.01 - Primary insomnia - Time Spent With Patient less than 15 minutes - Subjective Interval history: States he did not sleep well last night. When he laid down he had pain throughout his right hand. States he feels like, gabapentin has helped. Will discuss with Dr. Lancaster about adjusting dose maintaining appetite and hydration. States last bowels moved this morning. Participating well with therapy. - Constitutional Vitals: Temp Pulse Resp BP Pulse Ox 97.5 F L 58 16 119/83 96 09/09/17 07:00 09/09/17 07:00 09/09/17 07:00 09/09/17 07:00 09/09/17 07:00 General appearance: Present: cooperative, morbidly obese, pleasant, answers questions appropriately - Head Head exam: Present: atraumatic, normocephalic - Eye Eye exam: Present: PERRL, conjuntiva pink, sclera anicteric Pupils: Present: PERRL - Neck Neck exam general surgery: Present: supple, trachea midline. Absent: lymphadenopathy - Respiratory Respiratory exam: Present: CTAB. Absent: accessory muscle use, rales, rhonchi, wheezes - Cardiovascular Cardiovascular exam: Present: RRR, +S1, +S2. Absent: diastolic murmur, gallop, rubs, systolic murmur - GI/Abdominal GI/Abdominal exam: Present: normal bowel sounds, soft, no peritoneal signs. Absent: distended, tenderness - Extremities Exam Extremities exam: Present: warm, radial pulses palpable and symmetrical. Absent : calf tenderness, cyanotic, pedal edema Additional comments: slight right sided weakness. - Neurological Exam Neurological exam: Present: CN II-XII intact, oriented X3, no focal deficits. Absent: pronater drift, facial droop, speech deficit - Skin Skin exam: Present: dry, intact Internal Medicine: Result - Labs CBC & Chem 7: 09/05/17 04:40 09/05/17 04:40 - ABG Interpretation ABG results: PT/INR, D-dimer PT 12.4 Seconds (9.4-12.1) H 08/13/17 06:48 - VTE Documentation of Mechanical Device: Graduated compression elastic hosiery Consult Discharge Plan - Plan Referrals: Ambika Underwood MD [Primary Care Provider] -
[2017-09-09] MEDS: Gabapentin 300 MG CAPSULE PO SCH (19:54)
[2017-09-09] MEDS: traZODone 50 MG TABLET PO SCH (19:54)
[2017-09-10] MEDS: tiZANidine 4 MG TABLET PO PRN ×2 (02:13→18:17)
[2017-09-10] MEDS: *HR* HYDROcodone/Acet 5/325 mg TABLET PO PRN ×3 (03:19→21:02)
[2017-09-10] MEDS: *HR* Heparin 5,000 UNIT/ML VIAL SQ SCH ×2 (05:18→17:47)
[2017-09-10] MEDS: *HR* Metformin 500 MG TABLET PO SCH ×2 (08:34→17:46)
[2017-09-10] MEDS: Nicotine 14 MG PATCH.TD24 TD SCH (08:34)
[2017-09-10] MEDS: Lisinopril-HCTZ 20-12.5mg TABLET PO SCH (08:34)
[2017-09-10] MEDS: Cholecalciferol (D-3) 1,000 UNIT TABLET PO SCH (08:34)
[2017-09-10] MEDS: Aspirin 81 MG TAB.CHEW PO SCH (08:34)
[2017-09-10] MEDS: Insulin LISPRO 300 UNITS/3 ML VIAL SQ SCH ×3 (08:35→17:42)
--- NOTE | 2017-09-10 10:54 | Internal Med Progress Note ---
Date of Encounter: 09/10/17 Time of Encounter: 10:51 - Assessment and plan (1) CVA (cerebral vascular accident) Current Visit: Yes Status: Acute Assessment and plan: Patient continues with this right hemiparesis . Increase in MS on RE, which shows 4/5. Pt reportedly walked >60 feet on the with walker during therapy and continues to progress. Ankle brace obtained to maintain alignment. Patient continues with complaints of slight intermittent pain to her right arm that occurs at night when he is attempting to sleep. Patient has had his gabapentin increased, which he states has provided some relief. Patient to continue with speech therapy and physical therapy. Patient continues to progress well with physical therapy. Qualifiers: CVA mechanism: unspecified Qualified Code(s): I63.9 - Cerebral infarction, unspecified (2) Diabetes Current Visit: Yes Status: Chronic Assessment and plan: No acute issues. Patient's glucose has been fairly well-controlled with most measurements at 120-150. Patient continues with fingersticks with SSI coverage. Continue with current medication regimen Qualifiers: Diabetes mellitus type: type 2 Diabetes mellitus usp insulin use: without termite treater helper use Diabetes mellitus complication status: with unspecified complications Qualified Code(s): E11.8 - Type 2 diabetes mellitus with unspecified complications (3) Hypertension Current Visit: Yes Status: Acute Assessment and plan: No acute issues. Patient continues slightly elevated systolic blood pressure mostly 150-160. Continue to monitor closely Qualifiers: Hypertension type: essential hypertension Qualified Code(s): I10 - Essential (primary) hypertension - Time Spent With Patient less than 15 minutes - Subjective Interval history: Patient appears relaxed and denies any current discomforts or shortness of breath. Patient states that he continues to have intermittent right arm pain that occurs during the night and prevents him from sleeping. Patient states that he had an increase in his gabapentin, which seemed to help. Patient states that he feels that physical therapy has been going well and that he has had a increase in movement on the right arm and leg. Patient has had reports of increasing his distance of ambulation during therapy. - Constitutional Vitals: Temp Pulse Resp BP Pulse Ox 97.4 F L 67 18 106/69 98 09/10/17 09:25 09/10/17 09:25 09/10/17 09:25 09/10/17 09:25 09/10/17 09:25 General appearance: Present: cooperative, A&O X 3, morbidly obese, pleasant, answers questions appropriately - Head Head exam: Present: atraumatic, normocephalic - Eye Eye exam: Present: PERRL, conjuntiva pink, sclera anicteric Pupils: Present: PERRL - Neck Neck exam general surgery: Present: supple, trachea midline. Absent: lymphadenopathy - Respiratory Respiratory exam: Present: CTAB. Absent: accessory muscle use, rales, rhonchi, wheezes - Cardiovascular Cardiovascular exam: Present: RRR, +S1, +S2. Absent: diastolic murmur, gallop, rubs, systolic murmur - GI/Abdominal GI/Abdominal exam: Present: normal bowel sounds, soft, no peritoneal signs. Absent: distended, tenderness - Extremities Exam Extremities exam: Present: warm, radial pulses palpable and symmetrical. Absent : calf tenderness, cyanotic, pedal edema - Neurological Exam Neurological exam: Present: CN II-XII intact, oriented X3, no focal deficits. Absent: pronater drift, facial droop, speech deficit Additional comments: Continued right hemiparesis with his RE 4/5 and the LE 5/5. Continued paresthesia type pain to the right hand during the night. - Skin Skin exam: Present: dry, intact Internal Medicine: Result - Labs CBC & Chem 7: 09/05/17 04:40 09/05/17 04:40 - ABG Interpretation ABG results: PT/INR, D-dimer PT 12.4 Seconds (9.4-12.1) H 08/13/17 06:48 - VTE Documentation of Mechanical Device: Graduated compression elastic hosiery Consult Discharge Plan - Plan Referrals: Ambika Underwood MD [Primary Care Provider] -
[2017-09-10] MEDS: Gabapentin 300 MG CAPSULE PO SCH (21:01)
[2017-09-10] MEDS: traZODone 50 MG TABLET PO SCH (21:01)
[2017-09-11] MEDS: *HR* HYDROcodone/Acet 5/325 mg TABLET PO PRN ×4 (01:21→21:18)
[2017-09-11] MEDS: *HR* Heparin 5,000 UNIT/ML VIAL SQ SCH ×2 (05:58→16:46)
[2017-09-11] MEDS: Nicotine 14 MG PATCH.TD24 TD SCH (08:47)
[2017-09-11] MEDS: Lisinopril-HCTZ 20-12.5mg TABLET PO SCH (08:47)
[2017-09-11] MEDS: Aspirin 81 MG TAB.CHEW PO SCH (08:48)
[2017-09-11] MEDS: *HR* Metformin 500 MG TABLET PO SCH ×2 (08:48→16:46)
[2017-09-11] MEDS: Insulin LISPRO 300 UNITS/3 ML VIAL SQ SCH ×3 (08:49→16:46)
[2017-09-11] MEDS: Cholecalciferol (D-3) 1,000 UNIT TABLET PO SCH (08:58)
--- NOTE | 2017-09-11 10:36 | Internal Med Progress Note ---
Date of Encounter: 09/11/17 Time of Encounter: 10:31 - Assessment and plan (1) CVA (cerebral vascular accident) Current Visit: Yes Status: Acute Assessment and plan: Patient continues with this right hemiparesis . Increase in MS on RE over the past few weeks, which shows 4/5. Pt reportedly continues to progress with walking distance. Ankle brace obtained to maintain alignment. Patient continues with complaints of slight intermittent pain to her right arm that occurs at night when he is attempting to sleep. Patient has had his gabapentin increased, which he states has provided some relief. Patient to continue with speech therapy and physical therapy. Patient continues to progress well with physical therapy. Qualifiers: CVA mechanism: unspecified Qualified Code(s): I63.9 - Cerebral infarction, unspecified (2) Diabetes Current Visit: Yes Status: Chronic Assessment and plan: No acute issues. Patient's glucose has been fairly well-controlled with most measurements at 120-150. Patient continues with fingersticks with SSI coverage. Continue with current medication regimen Qualifiers: Diabetes mellitus type: type 2 Diabetes mellitus terminal clerk insulin use: without nursing home use Diabetes mellitus complication status: with unspecified complications Qualified Code(s): E11.8 - Type 2 diabetes mellitus with unspecified complications (3) Hypertension Current Visit: Yes Status: Acute Assessment and plan: No acute issues. Patient continues slightly elevated systolic blood pressure mostly 150-160. Continue to monitor closely Qualifiers: Hypertension type: essential hypertension Qualified Code(s): I10 - Essential (primary) hypertension - Time Spent With Patient less than 15 minutes - Subjective Interval history: Patient appears relaxed and denies any current discomforts or shortness of breath. Patient states that he continues to have intermittent right arm pain that occurs during the night and prevents him from sleeping. Patient states that he the increase in his gabapentin, seemed to help with last nights paiin being a little less. Patient states that he feels that physical therapy has been going well and that he has had a increase in movement on the right arm and leg. Patient has had reports of increasing his distance of ambulation during therapy. - Constitutional Vitals: Temp Pulse Resp BP Pulse Ox 97.3 F L 59 18 155/80 95 09/11/17 07:06 09/11/17 07:06 09/11/17 07:06 09/11/17 07:06 09/11/17 07:06 General appearance: Present: cooperative, A&O X 3, morbidly obese, pleasant, answers questions appropriately - Head Head exam: Present: atraumatic, normocephalic - Eye Eye exam: Present: PERRL, conjuntiva pink, sclera anicteric Pupils: Present: PERRL - Neck Neck exam general surgery: Present: supple, trachea midline. Absent: lymphadenopathy - Respiratory Respiratory exam: Present: CTAB. Absent: accessory muscle use, rales, rhonchi, wheezes - Cardiovascular Cardiovascular exam: Present: RRR, +S1, +S2. Absent: diastolic murmur, gallop, rubs, systolic murmur - GI/Abdominal GI/Abdominal exam: Present: normal bowel sounds, soft, no peritoneal signs. Absent: distended, tenderness - Extremities Exam Extremities exam: Present: warm, radial pulses palpable and symmetrical. Absent : calf tenderness, cyanotic, pedal edema - Neurological Exam Neurological exam: Present: CN II-XII intact, oriented X3. Absent: pronater drift, facial droop, speech deficit Additional comments: Patient continues with right hemiparesis with RE 4/5 and LE 5/5. - Skin Skin exam: Present: dry, intact Internal Medicine: Result - Labs CBC & Chem 7: 09/05/17 04:40 09/05/17 04:40 - ABG Interpretation ABG results: PT/INR, D-dimer PT 12.4 Seconds (9.4-12.1) H 08/13/17 06:48 - VTE Documentation of Mechanical Device: Graduated compression elastic hosiery Consult Discharge Plan - Plan Referrals: Ambika Underwood MD [Primary Care Provider] -
[2017-09-11] MEDS: traZODone 50 MG TABLET PO SCH (21:16)
[2017-09-11] MEDS: Gabapentin 300 MG CAPSULE PO SCH (21:17)
[2017-09-11] MEDS: tiZANidine 4 MG TABLET PO PRN (21:18)
[2017-09-12] MEDS: *HR* HYDROcodone/Acet 5/325 mg TABLET PO PRN ×4 (02:45→21:09)
[2017-09-12] MEDS: *HR* Heparin 5,000 UNIT/ML VIAL SQ SCH ×2 (06:46→17:29)
[2017-09-12] MEDS: Aspirin 81 MG TAB.CHEW PO SCH (08:21)
[2017-09-12] MEDS: Cholecalciferol (D-3) 1,000 UNIT TABLET PO SCH (08:21)
[2017-09-12] MEDS: Lisinopril-HCTZ 20-12.5mg TABLET PO SCH (08:21)
[2017-09-12] MEDS: *HR* Metformin 500 MG TABLET PO SCH ×2 (08:21→16:21)
[2017-09-12] MEDS: Nicotine 14 MG PATCH.TD24 TD SCH (08:22)
[2017-09-12] MEDS: Insulin LISPRO 300 UNITS/3 ML VIAL SQ SCH ×3 (08:22→17:28)
--- NOTE | 2017-09-12 10:09 | Internal Med Progress Note ---
Date of Encounter: 09/12/17 Time of Encounter: 10:07 - Assessment and plan (1) Obesity Current Visit: Yes Status: Chronic Assessment and plan: no real loss while in the hospital seems to be doing fine. Qualifiers: Obesity type: due to excess calories Qualified Code(s): E66.01 - Morbid ( severe) obesity due to excess calories; Z68.35 - Body mass index (BMI) 35.0-35.9 , adult; Z68.35 - Body mass index (BMI) 35.0-35.9, adult (2) Diabetes Current Visit: Yes Status: Chronic Assessment and plan: stable blood sugars 131 this morning overall stable will continue to watch Qualifiers: Diabetes mellitus type: type 2 Diabetes mellitus watermelon inspector insulin use: without senior living use Diabetes mellitus complication status: with unspecified complications Qualified Code(s): E11.8 - Type 2 diabetes mellitus with unspecified complications (3) Hypertension Current Visit: Yes Status: Chronic Assessment and plan: stable no new change Qualifiers: Hypertension type: essential hypertension Qualified Code(s): I10 - Essential (primary) hypertension (4) CVA (cerebral vascular accident) Current Visit: Yes Status: Acute Assessment and plan: Improving with Rehab , weakness still the same no new change Qualifiers: CVA mechanism: unspecified Qualified Code(s): I63.9 - Cerebral infarction, unspecified - Subjective Interval history: Cross coverage , . Seems to be doing well without any complains. Getting and improving in his strength - Constitutional Vitals: Temp Pulse Resp BP Pulse Ox 97.7 F 72 18 114/68 92 09/12/17 09:21 09/12/17 09:21 09/12/17 09:21 09/12/17 09:21 09/12/17 09:21 General appearance: Present: cooperative, A&O X 3, morbidly obese, pleasant, answers questions appropriately - Head Head exam: Present: atraumatic - Eye Eye exam: Present: EOMI, PERRL. Absent: scleral icterus, conjuntiva pink, sclera anicteric - Neck Neck exam general surgery: Present: full ROM, supple. Absent: tenderness, nuchal rigidity - Respiratory Respiratory exam: Present: CTAB. Absent: accessory muscle use, chest wall tenderness, decreased breath sounds, respiratory distress, rhonchi, stridor, wheezes, tachypnea - Cardiovascular Cardiovascular exam: Present: RRR, +S1, +S2. Absent: irregular rhythm, JVD, systolic murmur, tachycardia - GI/Abdominal GI/Abdominal exam: Present: normal bowel sounds, soft. Absent: distended, firm , guarding, rebound, rigid, tenderness - Extremities Exam Extremities exam: Absent: pedal edema, tenderness - Neurological Exam Neurological exam: Present: CN II-XII intact, oriented X3, no focal deficits. Absent: facial droop, speech deficit Additional comments: right side upper arm and leg weak No new change . left side good strength Internal Medicine: Result - Labs CBC & Chem 7: 09/05/17 04:40 09/05/17 04:40 - ABG Interpretation ABG results: PT/INR, D-dimer PT 12.4 Seconds (9.4-12.1) H 08/13/17 06:48 - VTE Documentation of Mechanical Device: Graduated compression elastic hosiery Consult Discharge Plan - Plan Referrals: Ambika Underwood MD [Primary Care Provider] -
[2017-09-12] MEDS: traZODone 50 MG TABLET PO SCH (21:08)
[2017-09-12] MEDS: tiZANidine 4 MG TABLET PO PRN (21:09)
[2017-09-12] MEDS: Gabapentin 300 MG CAPSULE PO SCH (21:09)
[2017-09-13] MEDS: *HR* Heparin 5,000 UNIT/ML VIAL SQ SCH ×2 (04:55→18:24)
[2017-09-13] MEDS: *HR* Metformin 500 MG TABLET PO SCH ×2 (08:17→18:24)
[2017-09-13] MEDS: Nicotine 14 MG PATCH.TD24 TD SCH (08:17)
[2017-09-13] MEDS: Aspirin 81 MG TAB.CHEW PO SCH (08:17)
[2017-09-13] MEDS: Cholecalciferol (D-3) 1,000 UNIT TABLET PO SCH (08:18)
[2017-09-13] MEDS: Lisinopril-HCTZ 20-12.5mg TABLET PO SCH (08:18)
[2017-09-13] MEDS: Insulin LISPRO 300 UNITS/3 ML VIAL SQ SCH ×3 (09:21→18:14)
--- NOTE | 2017-09-13 09:31 | Internal Med Progress Note ---
Date of Encounter: 09/13/17 Time of Encounter: 09:28 - Assessment and plan (1) Obesity Current Visit: Yes Status: Chronic Qualifiers: Obesity type: due to excess calories Qualified Code(s): E66.01 - Morbid ( severe) obesity due to excess calories; Z68.35 - Body mass index (BMI) 35.0-35.9 , adult; Z68.35 - Body mass index (BMI) 35.0-35.9, adult (2) Diabetes Current Visit: Yes Status: Chronic Qualifiers: Diabetes mellitus type: type 2 Diabetes mellitus petroleum terminal plant operator insulin use: without half-way use Diabetes mellitus complication status: with unspecified complications Qualified Code(s): E11.8 - Type 2 diabetes mellitus with unspecified complications (3) Hypertension Current Visit: Yes Status: Chronic Qualifiers: Hypertension type: essential hypertension Qualified Code(s): I10 - Essential (primary) hypertension (4) CVA (cerebral vascular accident) Current Visit: Yes Status: Acute Qualifiers: CVA mechanism: unspecified Qualified Code(s): I63.9 - Cerebral infarction, unspecified - Subjective Interval history: Cross coverage , . Seems to be doing well without any complains. He is planning to quit tobacco and loose some more weight He has lost around 20 pound since admission due to diet etc no other issues h - Constitutional Vitals: Temp Pulse Resp BP Pulse Ox 98.6 F 63 16 124/63 98 09/13/17 07:00 09/13/17 07:00 09/13/17 07:00 09/13/17 07:00 09/13/17 07:00 General appearance: Present: cooperative, A&O X 3, morbidly obese, pleasant, answers questions appropriately - Head Head exam: Present: atraumatic - Eye Eye exam: Present: PERRL. Absent: periorbital tenderness, scleral icterus, conjuntiva pink, sclera anicteric - Neck Neck exam general surgery: Present: full ROM, supple. Absent: tenderness, nuchal rigidity - Respiratory Respiratory exam: Present: CTAB. Absent: rales, respiratory distress, rhonchi, stridor, wheezes, tachypnea - Cardiovascular Cardiovascular exam: Present: RRR, +S1, +S2. Absent: gallop, JVD, systolic murmur, tachycardia - GI/Abdominal GI/Abdominal exam: Present: normal bowel sounds, pulsatile mass, soft. Absent: distended, firm, guarding, rebound, rigid, tenderness, no peritoneal signs - Extremities Exam Extremities exam: Absent: pedal edema - Neurological Exam Neurological exam: Present: CN II-XII intact, oriented X3. Absent: facial droop , speech deficit Additional comments: ride side e=weakness as before slowly increase in his strength both arm and leg Internal Medicine: Result - Labs CBC & Chem 7: 09/05/17 04:40 09/05/17 04:40 - ABG Interpretation ABG results: PT/INR, D-dimer PT 12.4 Seconds (9.4-12.1) H 08/13/17 06:48 - VTE Documentation of Mechanical Device: Graduated compression elastic hosiery Consult Discharge Plan - Plan Referrals: Ambika Underwood MD [Primary Care Provider] -
[2017-09-13] MEDS: *HR* HYDROcodone/Acet 5/325 mg TABLET PO PRN (18:23)
[2017-09-13] MEDS: traZODone 50 MG TABLET PO SCH (21:00)
[2017-09-13] MEDS: Gabapentin 300 MG CAPSULE PO SCH (21:01)
[2017-09-14] MEDS: *HR* HYDROcodone/Acet 5/325 mg TABLET PO PRN ×3 (00:44→18:55)
[2017-09-14] MEDS: *HR* Heparin 5,000 UNIT/ML VIAL SQ SCH ×2 (04:42→16:44)
[2017-09-14] MEDS: Insulin LISPRO 300 UNITS/3 ML VIAL SQ SCH ×3 (07:33→16:40)
[2017-09-14] MEDS: Cholecalciferol (D-3) 1,000 UNIT TABLET PO SCH (09:01)
[2017-09-14] MEDS: *HR* Metformin 500 MG TABLET PO SCH ×2 (09:01→16:45)
[2017-09-14] MEDS: Lisinopril-HCTZ 20-12.5mg TABLET PO SCH (09:01)
[2017-09-14] MEDS: Aspirin 81 MG TAB.CHEW PO SCH (09:01)
[2017-09-14] MEDS: Nicotine 14 MG PATCH.TD24 TD SCH (09:02)
[2017-09-14 09:06] LABS: BUN/Creatinine Ratio 15 (6-26); Blood Urea Nitrogen 18 mg/dL (8-23); Calcium 9.6 mg/dL (8.6-10.3); Carbon Dioxide 27 mEq/L (23-29); Chloride 101 mEq/L (98-107); Glucose 133 mg/dL (70-105); Osmolality,Calculated 284 (280-300); Sodium 135 mEq/L (136-145); eGFR For African Americans > 60 (> 60); eGFR For Non-African Americans > 60 (> 60)
[2017-09-14 09:17] LABS: Basophils % 0.4 %; Eosinophils # 0.2 K/mcL (0.0-0.6); Eosinophils % 2.1 %; Hematocrit 34.4 % (37.5-50.1); Hemoglobin 11.6 g/dL (12.9-16.9); Immature Granulocytes % 0.4 % (0-4); Lymphocytes # 1.6 K/mcL (0.6-4.6); Lymphocytes % 18.6 %; Mean Corpuscular HGB Conc 33.7 g/dL (31.6-35.5); Mean Corpuscular Hemoglobin 28.2 pg (28.0-33.3); Mean Corpuscular Volume 83.7 fL (83.0-100.0); Mean Platelet Volume 9.1 fL (9.4-12.4); Monocytes # 0.6 K/mcL (0.0-1.3); Neutrophils # 6.1 K/mcL (1.6-8.9); Platelet Count 223 K/mcL (140-400); Red Blood Count 4.11 M/mcL (4.19-5.50); Red Cell Distribution Width 15.9 % (11.5-14.5); Segmented Neutrophils % 71.5 %
--- NOTE | 2017-09-14 09:38 | Internal Med Progress Note ---
Date of Encounter: 09/14/17 Time of Encounter: 09:36 - Assessment and plan (1) Obesity Current Visit: Yes Status: Chronic Assessment and plan: he has lost some weight and is determined to oose some more no new change Qualifiers: Obesity type: due to excess calories Qualified Code(s): E66.01 - Morbid ( severe) obesity due to excess calories; Z68.35 - Body mass index (BMI) 35.0-35.9 , adult; Z68.35 - Body mass index (BMI) 35.0-35.9, adult (2) Diabetes Current Visit: Yes Status: Chronic Assessment and plan: stable Continue to monitor as he losses some weight it will get better and he understands Qualifiers: Diabetes mellitus type: type 2 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: without nursing 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 Diabetes mellitus complication status: with unspecified complications Qualified Code(s): E11.8 - Type 2 diabetes mellitus with unspecified complications (3) Hypertension Current Visit: Yes Status: Chronic Assessment and plan: slightly high systolic today but previous values were within normal range no new change Qualifiers: Hypertension type: essential hypertension Qualified Code(s): I10 - Essential (primary) hypertension (4) CVA (cerebral vascular accident) Current Visit: Yes Status: Acute Assessment and plan: stable and continue to improve Qualifiers: CVA mechanism: unspecified Qualified Code(s): I63.9 - Cerebral infarction, unspecified - Subjective Interval history: Cross coverage , . Seems to be doing well without any complains. He is planning to quit tobacco and loose some more weight He has lost around 20 pound since admission due to diet etc no other issues today feels good - Constitutional Vitals: Temp Pulse Resp BP Pulse Ox 97.7 F 68 16 150/69 95 09/14/17 07:00 09/14/17 07:00 09/14/17 07:00 09/14/17 07:00 09/14/17 07:00 General appearance: Present: cooperative, A&O X 3, morbidly obese, pleasant, answers questions appropriately - Head Head exam: Present: atraumatic - Eye Eye exam: Present: EOMI, PERRL. Absent: scleral icterus, conjuntiva pink, sclera anicteric - Neck Neck exam general surgery: Present: full ROM, supple. Absent: tenderness, nuchal rigidity - Respiratory Respiratory exam: Present: CTAB. Absent: respiratory distress, rhonchi, stridor , wheezes, tachypnea - Cardiovascular Cardiovascular exam: Present: RRR, +S1, +S2. Absent: gallop, irregular rhythm, JVD, systolic murmur - GI/Abdominal GI/Abdominal exam: Present: normal bowel sounds, soft. Absent: distended, rebound, rigid, tenderness - Extremities Exam Extremities exam: Present: warm. Absent: pedal edema, tenderness - Neurological Exam Neurological exam: Present: CN II-XII intact, oriented X3. Absent: facial droop , speech deficit Additional comments: weakness right side no new change Internal Medicine: Result - Labs CBC & Chem 7: 09/05/17 04:40 09/14/17 08:13 Labs: BMP 09/14/17 08:13 Sodium 135 L Potassium 4.0 Chloride 101 Carbon Dioxide 27 BUN 18 Creatinine 1.19 Glucose 133 H Calcium 9.6 - ABG Interpretation ABG results: PT/INR, D-dimer PT 12.4 Seconds (9.4-12.1) H 08/13/17 06:48 - VTE Documentation of Mechanical Device: Graduated compression elastic hosiery Consult Discharge Plan - Plan Referrals: Ambika Underwood MD [Primary Care Provider] -
[2017-09-14] MEDS: traZODone 50 MG TABLET PO SCH (21:40)
[2017-09-14] MEDS: Gabapentin 300 MG CAPSULE PO SCH (21:40)
[2017-09-14] MEDS: tiZANidine 4 MG TABLET PO PRN (21:41)
[2017-09-15] MEDS: *HR* HYDROcodone/Acet 5/325 mg TABLET PO PRN ×4 (00:48→21:58)
[2017-09-15] MEDS: *HR* Heparin 5,000 UNIT/ML VIAL SQ SCH ×2 (05:11→16:35)
[2017-09-15] MEDS: *HR* Metformin 500 MG TABLET PO SCH ×2 (08:21→16:34)
[2017-09-15] MEDS: Nicotine 14 MG PATCH.TD24 TD SCH (08:21)
[2017-09-15] MEDS: Cholecalciferol (D-3) 1,000 UNIT TABLET PO SCH (08:22)
[2017-09-15] MEDS: Aspirin 81 MG TAB.CHEW PO SCH (08:22)
[2017-09-15] MEDS: Lisinopril-HCTZ 20-12.5mg TABLET PO SCH (08:22)
[2017-09-15] MEDS: Insulin LISPRO 300 UNITS/3 ML VIAL SQ SCH ×3 (08:23→16:38)
--- NOTE | 2017-09-15 10:12 | Internal Med Progress Note ---
Date of Encounter: 09/15/17 Time of Encounter: 10:09 - Assessment and plan (1) CVA (cerebral vascular accident) Current Visit: Yes Status: Acute Assessment and plan: Continued slow improvement. We will continue with therapies, as planned. I think he has lymphedema and advised that he avoid salt, told him we will follow. We can consider compression if necessary. Continue therapies as planned. He is making good progress. Home visit, for safety, tomorrow. Qualifiers: CVA mechanism: unspecified Qualified Code(s): I63.9 - Cerebral infarction, unspecified (2) Diabetes Current Visit: Yes Status: Chronic Assessment and plan: He is reasonably controlled. No acute issues. Qualifiers: Diabetes mellitus type: type 2 Diabetes mellitus fci insulin use: without intermediate school teacher use Diabetes mellitus complication status: with unspecified complications Qualified Code(s): E11.8 - Type 2 diabetes mellitus with unspecified complications (3) Hypertension Current Visit: Yes Status: Chronic Assessment and plan: Clinically stable. We will continue home regimen and follow. Qualifiers: Hypertension type: essential hypertension Qualified Code(s): I10 - Essential (primary) hypertension (4) Slow transit constipation Current Visit: Yes Status: Acute Assessment and plan: Encouraged him to use when necessary laxatives, as above. (5) Insomnia Current Visit: Yes Status: Acute Assessment and plan: Etiology is uncertain. He is on multiple medications for same and has responded poorly. We will continue to follow. Qualifiers: Insomnia type: primary Qualified Code(s): F51.01 - Primary insomnia - Subjective Interval history: Patient still was not sleeping well. The is not having pain. He has had new edema at his right upper and lower extremity. Actually, evaluation is that this is increased and he is not notices edema before. He is moving bowels and bladder, well. No other acute issues. Patient has no complaint of chest discomfort, dyspnea, orthopnea, palpitations, nausea or vomiting, constipation or diarrhea, other changes in bowel habits, difficulty with urination, rash or itching, or other new complaints, except as mentioned above. Review of systems is otherwise unremarkable. - Constitutional Vitals: Temp Pulse Resp BP Pulse Ox 97.3 F L 60 16 137/75 95 09/15/17 07:00 09/15/17 07:00 09/15/17 07:00 09/15/17 07:00 09/15/17 07:00 General appearance: Present: cooperative, morbidly obese, pleasant, answers questions appropriately Exam: Examination: (Except as mentioned above): General: In no apparent distress. Alert and oriented 3. Nondiaphoretic. Head: Atraumatic and normocephalic. Respiratory: No use of accessory muscles. Lungs are clear throughout. Normal airflow. Cardiovascular: Regular rate and rhythm without murmur appreciated. Abdomen: Bowel sounds are normal. No hepatosplenomegaly mass or tenderness appreciated. Obese and therefore difficult to palpate deeply.Patient is examined upright in chair and this also limits exam. Extremities: No cyanosis clubbing or change in edema. I feel this is lymphedema related to his right hemiparesis. Skin: Warm and non-diaphoretic with no new lesions noted. Neurological: He continues to have right hemiparesis but this is improving, with time. Internal Medicine: Result - Labs CBC & Chem 7: 09/14/17 08:13 09/14/17 08:13 - ABG Interpretation ABG results: PT/INR, D-dimer PT 12.4 Seconds (9.4-12.1) H 08/13/17 06:48 - VTE Documentation of Mechanical Device: Graduated compression elastic hosiery Consult Discharge Plan - Plan Referrals: Ambika Underwood MD [Primary Care Provider] -
[2017-09-15] MEDS: traZODone 50 MG TABLET PO SCH (21:56)
[2017-09-15] MEDS: Gabapentin 300 MG CAPSULE PO SCH (21:56)
[2017-09-15] MEDS: tiZANidine 4 MG TABLET PO PRN (21:57)
[2017-09-16] MEDS: *HR* Heparin 5,000 UNIT/ML VIAL SQ SCH ×2 (05:44→17:44)
[2017-09-16] MEDS: *HR* HYDROcodone/Acet 5/325 mg TABLET PO PRN ×3 (05:44→21:49)
[2017-09-16] MEDS: Cholecalciferol (D-3) 1,000 UNIT TABLET PO SCH (08:08)
[2017-09-16] MEDS: Aspirin 81 MG TAB.CHEW PO SCH (08:08)
[2017-09-16] MEDS: Lisinopril-HCTZ 20-12.5mg TABLET PO SCH (08:08)
[2017-09-16] MEDS: *HR* Metformin 500 MG TABLET PO SCH ×2 (08:08→17:40)
[2017-09-16] MEDS: Nicotine 14 MG PATCH.TD24 TD SCH (08:09)
[2017-09-16] MEDS: Insulin LISPRO 300 UNITS/3 ML VIAL SQ SCH ×3 (08:11→19:28)
--- NOTE | 2017-09-16 13:24 | Internal Med Progress Note ---
Date of Encounter: 09/16/17 Time of Encounter: 13:20 - Assessment and plan (1) CVA (cerebral vascular accident) Current Visit: Yes Status: Acute Assessment and plan: improving right sided weakness. No new neurological deficits. Continue PT\OT\ ST. Will follow progress. Follow up with neuro scheduled. . Qualifiers: CVA mechanism: unspecified Qualified Code(s): I63.9 - Cerebral infarction, unspecified (2) Diabetes Current Visit: Yes Status: Chronic Assessment and plan: Controlled. glucose running between 100-130. Continue to monitor fingerstick blood sugar. Continue current medications. Will adjust as necessary. Qualifiers: Diabetes mellitus type: type 2 Diabetes mellitus group home insulin use: without group home use Diabetes mellitus complication status: with unspecified complications Qualified Code(s): E11.8 - Type 2 diabetes mellitus with unspecified complications (3) Hypertension Current Visit: Yes Status: Chronic Assessment and plan: Controlled with current medication. Continue to monitor blood pressure. Qualifiers: Hypertension type: essential hypertension Qualified Code(s): I10 - Essential (primary) hypertension (4) Obesity Current Visit: Yes Status: Chronic Assessment and plan: continue education Qualifiers: Obesity type: due to excess calories Qualified Code(s): E66.01 - Morbid ( severe) obesity due to excess calories; Z68.35 - Body mass index (BMI) 35.0-35.9 , adult; Z68.35 - Body mass index (BMI) 35.0-35.9, adult (5) Insomnia Current Visit: Yes Status: Acute Assessment and plan: still having difficulty sleeping. will discuss with Dr Lancaster. Qualifiers: Insomnia type: primary Qualified Code(s): F51.01 - Primary insomnia - Time Spent With Patient less than 15 minutes - Subjective Interval history: States he did not sleep well last night. will discuss with Dr Lancaster. had home eval with therapy today. continues to make slow progress with therapy. denies pain or complaints at this time. maintaining appetite and hydration. States last bowels moved this morning. Participating well with therapy. - Constitutional Vitals: Temp Pulse Resp BP Pulse Ox 97.7 F 66 20 151/83 98 09/16/17 07:00 09/16/17 07:00 09/16/17 07:00 09/16/17 07:00 09/16/17 07:00 General appearance: Present: cooperative, A&O X 3, morbidly obese, pleasant, answers questions appropriately - Head Head exam: Present: atraumatic, normocephalic - Eye Eye exam: Present: PERRL, conjuntiva pink, sclera anicteric Pupils: Present: PERRL - Neck Neck exam general surgery: Present: supple, trachea midline. Absent: lymphadenopathy - Respiratory Respiratory exam: Present: CTAB. Absent: accessory muscle use, rales, rhonchi, wheezes - Cardiovascular Cardiovascular exam: Present: RRR, +S1, +S2. Absent: diastolic murmur, gallop, rubs, systolic murmur - GI/Abdominal GI/Abdominal exam: Present: normal bowel sounds, soft, no peritoneal signs. Absent: distended, tenderness - Extremities Exam Extremities exam: Present: warm, radial pulses palpable and symmetrical. Absent : calf tenderness, cyanotic, pedal edema Additional comments: slight edema to right hand. - Neurological Exam Neurological exam: Present: CN II-XII intact, oriented X3, no focal deficits. Absent: pronater drift, facial droop, speech deficit - Skin Skin exam: Present: dry, intact Internal Medicine: Result - Labs CBC & Chem 7: 09/14/17 08:13 09/14/17 08:13 - ABG Interpretation ABG results: PT/INR, D-dimer PT 12.4 Seconds (9.4-12.1) H 08/13/17 06:48 - VTE Documentation of Mechanical Device: Graduated compression elastic hosiery Consult Discharge Plan - Plan Referrals: Ambika Underwood MD [Primary Care Provider] -
--- NOTE | 2017-09-16 18:08 | Physical Med Progress Note ---
Date of Encounter: 09/16/17 Time of Encounter: 14:30 Assessment and Plan (1) CVA (cerebral vascular accident) Current Visit: Yes Status: Acute Assessment and plan: Excellent functional progress. Working on more fine motor in therapies. Ambulating 150' with hemiwalker contact guard assist. Loss of balance at end due to fatigue.UE ADL independent with set up. LE ADL min assist. Bathing min. assist for transfer tub bench. EDC TBD. Qualifiers: CVA mechanism: unspecified Qualified Code(s): I63.9 - Cerebral infarction, unspecified (2) Constipation due to neurogenic bowel Current Visit: Yes Status: Resolved Physical Medicine-PN: Subj Interval history: No C/O. HSV went well. Pt. was good at directing his care. - Constitutional Vitals: Vital Signs Temp Pulse Resp BP Pulse Ox 09/16/17 07:00 97.7 F 66 20 151/83 98 09/15/17 19:11 98.1 F 70 14 133/80 97 Intake and Output 09/16/17 09/16/17 09/16/17 07:59 15:59 23:59 Intake Total 900 / 900 240 / 240 Output Total 450 / 450 Balance 450 / 450 240 / 240 Intake: Oral 900 / 900 240 / 240 Output: Urine 450 / 450 Other: Meal Dinner Percent of Meal Consumed 100% # Voids 1 Blood Glucose* 122 119 - Extremities Exam Additional comments: RUKeya min. hand swelling. He can make a fist. Not completely closed all the way. Physical Medicine-PN: Obj Data - Labs CBC & Chem 7: 09/14/17 08:13 09/14/17 08:13 Labs: Laboratory Results - last 24 hr 09/15/17 09/15/17 09/16/17 07:20 20:26 16:49 POC Glucose 136 H 125 H 119 H - ABG Interpretation ABG results: PT/INR, D-dimer PT 12.4 Seconds (9.4-12.1) H 08/13/17 06:48 - VTE Documentation of Mechanical Device: Graduated compression elastic hosiery Consult Discharge Plan - Plan Referrals: Ambika Underwood MD [Primary Care Provider] -
[2017-09-16] MEDS: Gabapentin 300 MG CAPSULE PO SCH (20:42)
[2017-09-16] MEDS: traZODone 50 MG TABLET PO SCH (20:42)
[2017-09-16] MEDS: tiZANidine 4 MG TABLET PO PRN (21:50)
[2017-09-17] MEDS: *HR* HYDROcodone/Acet 5/325 mg TABLET PO PRN ×4 (01:51→21:27)
[2017-09-17] MEDS: *HR* Heparin 5,000 UNIT/ML VIAL SQ SCH ×2 (05:01→16:40)
[2017-09-17] MEDS: tiZANidine 4 MG TABLET PO PRN ×2 (08:45→21:29)
[2017-09-17] MEDS: Lisinopril-HCTZ 20-12.5mg TABLET PO SCH (08:45)
[2017-09-17] MEDS: Insulin LISPRO 300 UNITS/3 ML VIAL SQ SCH ×3 (08:46→16:35)
[2017-09-17] MEDS: Cholecalciferol (D-3) 1,000 UNIT TABLET PO SCH (08:46)
[2017-09-17] MEDS: Aspirin 81 MG TAB.CHEW PO SCH (08:46)
[2017-09-17] MEDS: *HR* Metformin 500 MG TABLET PO SCH ×2 (08:46→16:40)
[2017-09-17] MEDS: Nicotine 14 MG PATCH.TD24 TD SCH (08:46)
--- NOTE | 2017-09-17 09:51 | Internal Med Progress Note ---
Date of Encounter: 09/17/17 Time of Encounter: 09:49 - Assessment and plan (1) CVA (cerebral vascular accident) Current Visit: Yes Status: Acute Assessment and plan: Continued slow improvement. We will continue with therapies, as planned. Insomnia persists. Will continue as planned but not sure that this will ever be responsive until medications increase. Hope not to do this. Qualifiers: CVA mechanism: unspecified Qualified Code(s): I63.9 - Cerebral infarction, unspecified (2) Diabetes Current Visit: Yes Status: Chronic Assessment and plan: Clinically stable. We will continue current regimen and follow. Qualifiers: Diabetes mellitus type: type 2 Diabetes mellitus prison insulin use: without long term acute care registered nurse use Diabetes mellitus complication status: with unspecified complications Qualified Code(s): E11.8 - Type 2 diabetes mellitus with unspecified complications (3) Hypertension Current Visit: Yes Status: Chronic Qualifiers: Hypertension type: essential hypertension Qualified Code(s): I10 - Essential (primary) hypertension (4) Slow transit constipation Current Visit: Yes Status: Acute Assessment and plan: We will continue to follow. (5) Insomnia Current Visit: Yes Status: Acute Assessment and plan: See above. Qualifiers: Insomnia type: primary Qualified Code(s): F51.01 - Primary insomnia - Subjective Interval history: Patient still was not sleeping well. We discussed this, briefly. He was seen and interrupted occupational therapy. Over there,we discussed with occupational therapy as needed for a home shower bar as well as a hand-held shower attachment which his landlord will install with a prescription for me. This was provided. He has not had a bowel movement for 2 days and I encouraged him to use some laxative, as needed. Patient has no complaint of chest discomfort, dyspnea, orthopnea, palpitations, nausea or vomiting, constipation or diarrhea, other changes in bowel habits, difficulty with urination, rash or itching, or other new complaints, except as mentioned above. Review of systems is otherwise unremarkable. - Constitutional Vitals: Temp Pulse Resp BP Pulse Ox 97.6 F 60 18 117/75 95 09/17/17 07:00 09/17/17 07:00 09/17/17 07:00 09/17/17 07:00 09/17/17 07:00 General appearance: Present: cooperative, morbidly obese, pleasant, answers questions appropriately Exam: Examination: (Except as mentioned above): General: In no apparent distress. Alert and oriented 3. Nondiaphoretic. Head: Atraumatic and normocephalic. Respiratory: No use of accessory muscles. Lungs are clear throughout. Normal airflow. Cardiovascular: Regular rate and rhythm without murmur appreciated. Abdomen: Bowel sounds are normal. No hepatosplenomegaly mass or tenderness appreciated. Obese and therefore difficult to palpate deeply. Patient is examined upright in chair and this also limits exam. Extremities: No cyanosis clubbing or edema. Skin: Warm and non-diaphoretic with no new lesions noted. Neurological: Continued slight increase in ROM versus left couple of days ago. Internal Medicine: Result - Labs CBC & Chem 7: 09/14/17 08:13 09/14/17 08:13 - ABG Interpretation ABG results: PT/INR, D-dimer PT 12.4 Seconds (9.4-12.1) H 08/13/17 06:48 - VTE Documentation of Mechanical Device: Graduated compression elastic hosiery Consult Discharge Plan - Plan Referrals: Ambika Underwood MD [Primary Care Provider] -
[2017-09-17] MEDS: Gabapentin 300 MG CAPSULE PO SCH (21:27)
[2017-09-17] MEDS: Sennosides 8.6 MG TABLET PO PRN (21:28)
[2017-09-17] MEDS: traZODone 50 MG TABLET PO SCH (21:29)
[2017-09-18] MEDS: *HR* HYDROcodone/Acet 5/325 mg TABLET PO PRN ×4 (00:48→21:52)
[2017-09-18] MEDS: *HR* Heparin 5,000 UNIT/ML VIAL SQ SCH ×2 (06:50→18:07)
[2017-09-18] MEDS: tiZANidine 4 MG TABLET PO PRN ×3 (06:50→21:52)
[2017-09-18] MEDS: Aspirin 81 MG TAB.CHEW PO SCH (08:19)
[2017-09-18] MEDS: *HR* Metformin 500 MG TABLET PO SCH ×2 (08:19→18:06)
[2017-09-18] MEDS: Nicotine 14 MG PATCH.TD24 TD SCH (08:19)
[2017-09-18] MEDS: Cholecalciferol (D-3) 1,000 UNIT TABLET PO SCH (08:19)
[2017-09-18] MEDS: Insulin LISPRO 300 UNITS/3 ML VIAL SQ SCH ×3 (08:20→19:27)
[2017-09-18] MEDS: Lisinopril 20 MG TABLET PO SCH (08:21)
--- NOTE | 2017-09-18 10:04 | Internal Med Progress Note ---
Date of Encounter: 09/18/17 Time of Encounter: 10:02 - Assessment and plan (1) CVA (cerebral vascular accident) Current Visit: Yes Status: Acute Assessment and plan: Patient continues with this right hemiparesis . Increase in MS on RE over the past few weeks, which shows 4/5. Pt reportedly continues to progress with walking distance. Ankle brace obtained to maintain alignment. Patient continues with complaints of slight intermittent pain to her right arm that occurs at night when he is attempting to sleep. Patient states minimal relief with current medications. Patient been fitted with a foam wedge this evening to maintain position in bed to prevent onset of pain. Patient states that when he sits up the pain is not there when he lays down, the pain begins. Patient to continue with speech therapy and physical therapy. Patient continues to progress well with physical therapy. Qualifiers: CVA mechanism: unspecified Qualified Code(s): I63.9 - Cerebral infarction, unspecified (2) Diabetes Current Visit: Yes Status: Chronic Assessment and plan: No acute issues. Patient's glucose has been fairly well-controlled with most measurements at 120-150. Patient continues with fingersticks with SSI coverage. Continue with current medication regimen Qualifiers: Diabetes mellitus type: type 2 Diabetes mellitus manager intermediate insulin use: without manager intermediate use Diabetes mellitus complication status: with unspecified complications Qualified Code(s): E11.8 - Type 2 diabetes mellitus with unspecified complications (3) Hypertension Current Visit: Yes Status: Chronic Assessment and plan: No acute issues. Patient continues slightly elevated systolic blood pressure mostly 150-160. Continue to monitor closely Qualifiers: Hypertension type: essential hypertension Qualified Code(s): I10 - Essential (primary) hypertension - Time Spent With Patient less than 15 minutes - Subjective Interval history: Patient appears relaxed and denies any current discomforts or shortness of breath. Patient states that he continues to have intermittent right arm pain that occurs during the night and prevents him from sleeping. Patient states that when he sits up in bed it relieves the pain and when he lies flat pain begins. Patient states that he has been fitted with a foam wedge to maintain his position on the side and to prevent his right arm pain. Patient states that current medications and had minimal effect. Patient states that he feels that physical therapy has been going well and that he has had a increase in movement on the right arm and leg. Patient has had reports of increasing his distance of ambulation during therapy. - Constitutional Vitals: Temp Pulse Resp BP Pulse Ox 97.8 F 63 17 144/79 97 09/18/17 07:57 09/18/17 07:57 09/18/17 07:57 09/18/17 07:57 09/18/17 07:57 General appearance: Present: cooperative, morbidly obese, pleasant, answers questions appropriately - Head Head exam: Present: atraumatic, normocephalic - Eye Eye exam: Present: PERRL, conjuntiva pink, sclera anicteric Pupils: Present: PERRL - Neck Neck exam general surgery: Present: supple, trachea midline. Absent: lymphadenopathy - Respiratory Respiratory exam: Present: CTAB. Absent: accessory muscle use, rales, rhonchi, wheezes - Cardiovascular Cardiovascular exam: Present: RRR, +S1, +S2. Absent: diastolic murmur, gallop, rubs, systolic murmur - GI/Abdominal GI/Abdominal exam: Present: normal bowel sounds, soft, no peritoneal signs. Absent: distended, tenderness - Extremities Exam Extremities exam: Present: warm, radial pulses palpable and symmetrical. Absent : calf tenderness, cyanotic, pedal edema Additional comments: Right arm appears normal during exam. Pulses are easily palpated. No edema or erythema noted and no deformity or injury noted - Neurological Exam Neurological exam: Present: CN II-XII intact, oriented X3. Absent: pronater drift, facial droop, speech deficit Additional comments: Patient continues with right hemiparesis with right extremities at 4/5 muscle strength and left extremities 5/5 - Skin Skin exam: Present: dry, intact Internal Medicine: Result - Labs CBC & Chem 7: 09/14/17 08:13 09/14/17 08:13 - ABG Interpretation ABG results: PT/INR, D-dimer PT 12.4 Seconds (9.4-12.1) H 08/13/17 06:48 - VTE Documentation of Mechanical Device: Graduated compression elastic hosiery Consult Discharge Plan - Plan Referrals: Ambika Underwood MD [Primary Care Provider] -
--- NOTE | 2017-09-18 16:55 | Physical Med Progress Note ---
Date of Encounter: 09/18/17 Time of Encounter: 15:30 Assessment and Plan (1) CVA (cerebral vascular accident) Current Visit: Yes Status: Acute Assessment and plan: Continued progress. Working on finer motor UE and LE activities, Ambulation endurance and balance. Qualifiers: CVA mechanism: unspecified Qualified Code(s): I63.9 - Cerebral infarction, unspecified (2) Constipation due to neurogenic bowel Current Visit: Yes Status: Resolved Physical Medicine-PN: Subj Interval history: Pt. seen in OT area. Working on stacking Jenga blocks with right hand. No C/O. - Constitutional Vitals: Vital Signs Temp Pulse Resp BP Pulse Ox 09/18/17 07:57 97.8 F 63 17 144/79 97 09/17/17 18:52 97.9 F 67 16 125/75 93 Intake and Output 09/18/17 09/18/17 09/18/17 07:59 15:59 23:59 Intake Total 450 / 450 720 / 720 Balance 450 / 450 720 / 720 Intake: Oral 450 / 450 720 / 720 Other: Meal Lunch Percent of Meal Consumed 100% Stool Size Large Stool Consistency formed Stool Characteristics Normal for Patient # Voids 1 1 # Bowel Movements 1 Blood Glucose* 113 130 136 - Extremities Exam Additional comments: RUE minimal edema. Fair coordination and fine motor. Requires extra time to complete task Physical Medicine-PN: Obj Data - Labs CBC & Chem 7: 09/14/17 08:13 09/14/17 08:13 Labs: Laboratory Results - last 24 hr 09/17/17 09/17/17 09/17/17 11:49 16:57 20:21 POC Glucose 149 H 120 H 121 H 09/18/17 09/18/17 11:14 16:20 POC Glucose 130 H 136 H - ABG Interpretation ABG results: PT/INR, D-dimer PT 12.4 Seconds (9.4-12.1) H 08/13/17 06:48 - VTE Documentation of Mechanical Device: Graduated compression elastic hosiery Consult Discharge Plan - Plan Referrals: Ambika Underwood MD [Primary Care Provider] -
[2017-09-18] MEDS: Gabapentin 300 MG CAPSULE PO SCH (21:51)
[2017-09-18] MEDS: traZODone 50 MG TABLET PO SCH (21:51)
[2017-09-19] MEDS: *HR* HYDROcodone/Acet 5/325 mg TABLET PO PRN ×3 (06:20→21:46)
[2017-09-19] MEDS: *HR* Heparin 5,000 UNIT/ML VIAL SQ SCH ×2 (06:20→17:01)
[2017-09-19] MEDS: Insulin LISPRO 300 UNITS/3 ML VIAL SQ SCH (07:39)
[2017-09-19] MEDS: Aspirin 81 MG TAB.CHEW PO SCH (08:00)
[2017-09-19] MEDS: Nicotine 14 MG PATCH.TD24 TD SCH (08:00)
[2017-09-19] MEDS: *HR* Metformin 500 MG TABLET PO SCH ×2 (08:00→17:00)
[2017-09-19] MEDS: Lisinopril 20 MG TABLET PO SCH (08:00)
[2017-09-19] MEDS: Cholecalciferol (D-3) 1,000 UNIT TABLET PO SCH (08:01)
--- NOTE | 2017-09-19 10:05 | Internal Med Progress Note ---
Date of Encounter: 09/19/17 Time of Encounter: 10:02 - Assessment and plan (1) Obesity Current Visit: Yes Status: Chronic Qualifiers: Obesity type: due to excess calories Qualified Code(s): E66.01 - Morbid ( severe) obesity due to excess calories; Z68.35 - Body mass index (BMI) 35.0-35.9 , adult; Z68.35 - Body mass index (BMI) 35.0-35.9, adult (2) Diabetes Current Visit: Yes Status: Chronic Qualifiers: Diabetes mellitus type: type 2 Diabetes mellitus intermediate school teacher insulin use: without chcf use Diabetes mellitus complication status: with unspecified complications Qualified Code(s): E11.8 - Type 2 diabetes mellitus with unspecified complications (3) Hypertension Current Visit: Yes Status: Chronic Qualifiers: Hypertension type: essential hypertension Qualified Code(s): I10 - Essential (primary) hypertension (4) CVA (cerebral vascular accident) Current Visit: Yes Status: Acute Qualifiers: CVA mechanism: unspecified Qualified Code(s): I63.9 - Cerebral infarction, unspecified - Subjective Interval history: Cross coverage , .NO new complains getting along well - Constitutional Vitals: Temp Pulse Resp BP Pulse Ox 97.9 F 61 18 147/84 95 09/19/17 07:00 09/19/17 07:00 09/19/17 07:00 09/19/17 07:00 09/19/17 07:00 General appearance: Present: cooperative, A&O X 3, morbidly obese, pleasant, answers questions appropriately - Head Head exam: Present: atraumatic - Eye Eye exam: Present: EOMI, PERRL. Absent: conjuntiva pink, sclera anicteric - Neck Neck exam general surgery: Present: supple. Absent: tenderness, nuchal rigidity - Respiratory Respiratory exam: Absent: chest wall tenderness, respiratory distress, rhonchi, stridor, wheezes, tachypnea - Cardiovascular Cardiovascular exam: Present: RRR, +S1, +S2. Absent: distant heart sounds, irregular rhythm, JVD, rubs, systolic murmur - GI/Abdominal GI/Abdominal exam: Present: guarding, normal bowel sounds, soft. Absent: distended, firm, rebound, rigid, tenderness - Extremities Exam Extremities exam: Absent: pedal edema, tenderness - Neurological Exam Neurological exam: Present: CN II-XII intact, oriented X3. Absent: facial droop , speech deficit Additional comments: weakness right side improving slowly He was able to shake hands today . Internal Medicine: Result - Labs CBC & Chem 7: 09/14/17 08:13 09/14/17 08:13 - ABG Interpretation ABG results: PT/INR, D-dimer PT 12.4 Seconds (9.4-12.1) H 08/13/17 06:48 - VTE Documentation of Mechanical Device: Graduated compression elastic hosiery Consult Discharge Plan - Plan Referrals: Ambika Underwood MD [Primary Care Provider] -
[2017-09-19] MEDS: traZODone 50 MG TABLET PO SCH (20:00)
[2017-09-19] MEDS: Gabapentin 300 MG CAPSULE PO SCH (20:00)
[2017-09-19] MEDS: tiZANidine 4 MG TABLET PO PRN (21:46)
[2017-09-20] MEDS: *HR* HYDROcodone/Acet 5/325 mg TABLET PO PRN ×4 (02:04→21:34)
[2017-09-20] MEDS: *HR* Heparin 5,000 UNIT/ML VIAL SQ SCH ×2 (05:44→17:05)
[2017-09-20] MEDS: Nicotine 14 MG PATCH.TD24 TD SCH (07:59)
[2017-09-20] MEDS: Cholecalciferol (D-3) 1,000 UNIT TABLET PO SCH (08:00)
[2017-09-20] MEDS: *HR* Metformin 500 MG TABLET PO SCH ×2 (08:01→17:05)
[2017-09-20] MEDS: Lisinopril 20 MG TABLET PO SCH (08:01)
[2017-09-20] MEDS: Aspirin 81 MG TAB.CHEW PO SCH (08:01)
--- NOTE | 2017-09-20 10:04 | Internal Med Progress Note ---
Date of Encounter: 09/20/17 Time of Encounter: 10:02 - Assessment and plan (1) Obesity Current Visit: Yes Status: Chronic Assessment and plan: no new change he has lost some weight and is trying hard Qualifiers: Obesity type: due to excess calories Qualified Code(s): E66.01 - Morbid ( severe) obesity due to excess calories; Z68.35 - Body mass index (BMI) 35.0-35.9 , adult; Z68.35 - Body mass index (BMI) 35.0-35.9, adult (2) Diabetes Current Visit: Yes Status: Chronic Assessment and plan: stable continue present management Qualifiers: Diabetes mellitus type: type 2 Diabetes mellitus assistant terminal manager insulin use: without assistant terminal manager use Diabetes mellitus complication status: with unspecified complications Qualified Code(s): E11.8 - Type 2 diabetes mellitus with unspecified complications (3) Hypertension Current Visit: Yes Status: Chronic Assessment and plan: stable no new change Qualifiers: Hypertension type: essential hypertension Qualified Code(s): I10 - Essential (primary) hypertension (4) CVA (cerebral vascular accident) Current Visit: Yes Status: Acute Assessment and plan: neuropathic kind of pain on his right side He is already taking large dose of trazadone which should help as well . Increase Gabapentin to 800 mg HS . Qualifiers: CVA mechanism: unspecified Qualified Code(s): I63.9 - Cerebral infarction, unspecified - Subjective Interval history: Cross coverage , .Complains that he has been having more pain at night especially on his hand and fingers the go number . Gabapentin had helped his pain in his shoulder however it seems to migrate to his fingers No other complains . no fever or chills eating well . PT helping - Constitutional Vitals: Temp Pulse Resp BP Pulse Ox 97.6 F 63 18 146/78 99 09/20/17 07:00 09/20/17 07:00 09/20/17 07:00 09/20/17 07:00 09/20/17 07:00 General appearance: Present: cooperative, A&O X 3, morbidly obese, pleasant, answers questions appropriately - Head Head exam: Present: atraumatic - Eye Eye exam: Present: EOMI, PERRL Pupils: Present: PERRL - Neck Neck exam general surgery: Present: supple. Absent: tenderness, nuchal rigidity - Respiratory Respiratory exam: Present: CTAB. Absent: respiratory distress, rhonchi, stridor , wheezes, tachypnea - Cardiovascular Cardiovascular exam: Present: RRR, +S1, +S2. Absent: irregular rhythm, JVD - GI/Abdominal GI/Abdominal exam: Present: normal bowel sounds, soft. Absent: distended, firm , guarding, rebound, rigid - Extremities Exam Extremities exam: Absent: pedal edema, tenderness - Neurological Exam Neurological exam: Present: CN II-XII intact, oriented X3. Absent: facial droop , speech deficit Additional comments: weakness right side as before no increase in sensation on weaker site Internal Medicine: Result - Labs CBC & Chem 7: 09/14/17 08:13 09/14/17 08:13 - ABG Interpretation ABG results: PT/INR, D-dimer PT 12.4 Seconds (9.4-12.1) H 08/13/17 06:48 - VTE Documentation of Mechanical Device: Graduated compression elastic hosiery Consult Discharge Plan - Plan Referrals: Ambika Underwood MD [Primary Care Provider] -
[2017-09-20] MEDS: traZODone 50 MG TABLET PO SCH (20:26)
[2017-09-20] MEDS: Gabapentin 400 MG CAPSULE PO SCH (20:27)
[2017-09-20] MEDS: tiZANidine 4 MG TABLET PO PRN (21:34)
[2017-09-21] MEDS: *HR* HYDROcodone/Acet 5/325 mg TABLET PO PRN ×3 (03:06→21:48)
[2017-09-21] MEDS: *HR* Heparin 5,000 UNIT/ML VIAL SQ SCH ×2 (05:26→17:07)
[2017-09-21 06:01] LABS: Basophils % 0.5 %; Eosinophils # 0.2 K/mcL (0.0-0.6); Eosinophils % 2.4 %; Hematocrit 33.1 % (37.5-50.1); Hemoglobin 11.2 g/dL (12.9-16.9); Immature Granulocytes % 0.5 % (0-4); Lymphocytes # 1.8 K/mcL (0.6-4.6); Lymphocytes % 20.8 %; Mean Corpuscular HGB Conc 33.8 g/dL (31.6-35.5); Mean Corpuscular Hemoglobin 28.6 pg (28.0-33.3); Mean Corpuscular Volume 84.7 fL (83.0-100.0); Mean Platelet Volume 8.9 fL (9.4-12.4); Monocytes # 0.8 K/mcL (0.0-1.3); Monocytes % 8.6 %; Neutrophils # 5.9 K/mcL (1.6-8.9); Platelet Count 220 K/mcL (140-400); Red Blood Count 3.91 M/mcL (4.19-5.50); Red Cell Distribution Width 16.3 % (11.5-14.5); Segmented Neutrophils % 67.2 %
[2017-09-21] MEDS: Nicotine 14 MG PATCH.TD24 TD SCH (08:08)
[2017-09-21] MEDS: Cholecalciferol (D-3) 1,000 UNIT TABLET PO SCH (08:08)
[2017-09-21] MEDS: *HR* Metformin 500 MG TABLET PO SCH ×2 (08:08→17:07)
[2017-09-21] MEDS: Aspirin 81 MG TAB.CHEW PO SCH (08:08)
[2017-09-21] MEDS: Lisinopril 20 MG TABLET PO SCH (08:08)
[2017-09-21 09:23] LABS: BUN/Creatinine Ratio 15 (6-26); Blood Urea Nitrogen 19 mg/dL (8-23); Calcium 9.2 mg/dL (8.6-10.3); Carbon Dioxide 28 mEq/L (23-29); Chloride 101 mEq/L (98-107); Glucose 128 mg/dL (70-105); Osmolality,Calculated 286 (280-300); Potassium 4.1 mEq/L (3.5-5.1); Sodium 136 mEq/L (136-145); eGFR For African Americans > 60 (> 60); eGFR For Non-African Americans 56 (> 60)
--- NOTE | 2017-09-21 10:37 | Internal Med Progress Note ---
Date of Encounter: 09/21/17 Time of Encounter: 10:34 - Assessment and plan (1) CVA (cerebral vascular accident) Current Visit: Yes Status: Acute Assessment and plan: Continued slow improvement. We will continue with therapies, as planned. Insomnia persists. Qualifiers: CVA mechanism: unspecified Qualified Code(s): I63.9 - Cerebral infarction, unspecified (2) Diabetes Current Visit: Yes Status: Chronic Assessment and plan: Improved with weight loss and dietary improvements. Qualifiers: Diabetes mellitus type: type 2 Diabetes mellitus shelter insulin use: without shelter use Diabetes mellitus complication status: with unspecified complications Qualified Code(s): E11.8 - Type 2 diabetes mellitus with unspecified complications (3) Hypertension Current Visit: Yes Status: Chronic Assessment and plan: Clinically stable. We will continue home regimen and follow. Qualifiers: Hypertension type: essential hypertension Qualified Code(s): I10 - Essential (primary) hypertension (4) Slow transit constipation Current Visit: Yes Status: Acute Assessment and plan: We will continue to follow. (5) Insomnia Current Visit: Yes Status: Acute Assessment and plan: See above. Qualifiers: Insomnia type: primary Qualified Code(s): F51.01 - Primary insomnia (6) Paresthesia of right upper extremity Current Visit: Yes Status: Acute Assessment and plan: I am concerned that this is positional. This is affecting his sleep and other problems and we will investigate to make sure he does not have an occult radiculopathy, etc. - Subjective Interval history: Patient slept better over the weekend with increased dose of gabapentin. He asks about the possibility of sleeping upright in a chair because this is only with supine position that he has numbness and tingling in his right arm. We discussed this at length. His bowels move last, 2 days ago. He thinks he will have a bowel movement today. Patient has no complaint of chest discomfort, dyspnea, orthopnea, palpitations, nausea or vomiting, constipation or diarrhea, other changes in bowel habits, difficulty with urination, rash or itching, or other new complaints, except as mentioned above. Review of systems is otherwise unremarkable. - Constitutional Vitals: Temp Pulse Resp BP Pulse Ox 97.6 F 58 18 149/80 96 09/21/17 07:00 09/21/17 07:00 09/20/17 19:00 09/21/17 07:00 09/21/17 07:00 General appearance: Present: cooperative, morbidly obese, pleasant, answers questions appropriately Exam: Examination: (Except as mentioned above): General: In no apparent distress. Alert and oriented 3. Nondiaphoretic. Head: Atraumatic and normocephalic. Respiratory: No use of accessory muscles. Lungs are clear throughout. Normal airflow. Cardiovascular: Regular rate and rhythm without murmur appreciated. Abdomen: Bowel sounds are normal. No hepatosplenomegaly mass or tenderness appreciated. Obese and therefore difficult to palpate deeply. Patient is examined upright in chair and this also limits exam. Extremities: No cyanosis clubbing or edema. Skin: Warm and non-diaphoretic with no new lesions noted. Neurologically, patient continues to improve slowly but surely. He now has 4+/ 5 strength. His ambulation is still limited but markedly improved, versus baseline. Internal Medicine: Result - Labs CBC & Chem 7: 09/21/17 05:35 09/21/17 05:35 Labs: Short CBC 09/21/17 Range/Units 05:35 WBC 8.8 (4.3-11.1) K/mcL Hgb 11.2 L (12.9-16.9) g/dL Hct 33.1 L (37.5-50.1) % Plt Count 220 (140-400) K/mcL Neutrophils # 5.9 (1.6-8.9) K/mcL BMP 09/21/17 05:35 Sodium 136 Potassium 4.1 Chloride 101 Carbon Dioxide 28 BUN 19 Creatinine 1.29 Glucose 128 H Calcium 9.2 - ABG Interpretation ABG results: PT/INR, D-dimer PT 12.4 Seconds (9.4-12.1) H 08/13/17 06:48 - VTE Documentation of Mechanical Device: Graduated compression elastic hosiery Consult Discharge Plan - Plan Referrals: Ambika Underwood MD [Primary Care Provider] -
--- NOTE | 2017-09-21 17:01 | Physical Med Progress Note ---
Date of Encounter: 09/21/17 Time of Encounter: 15:00 Assessment and Plan (1) CVA (cerebral vascular accident) Current Visit: Yes Status: Acute Assessment and plan: Having shoulder pain when supine. Does not bother him at other times. Also right knee ache. Will try lidoderm patch. Staff suspects ANDRES. Will check overnight oxymetry and consider sleep study. Add [id number] qhs. Continue Trazodone and Gabapentin. Qualifiers: CVA mechanism: unspecified Qualified Code(s): I63.9 - Cerebral infarction, unspecified (2) Constipation due to neurogenic bowel Current Visit: Yes Status: Resolved Physical Medicine-PN: Subj Interval history: Having right shoulder pain at night. Ambulating 150' with hemiwalker SBA-CGA Will add lidoderm patch to shoulder. Discharge olanning. - Constitutional Vitals: Vital Signs Temp Pulse Resp BP Pulse Ox 09/21/17 07:00 97.6 F 58 149/80 96 09/20/17 19:00 98.0 F 85 18 170/78 94 Intake and Output 09/21/17 09/21/17 09/21/17 07:59 15:59 23:59 Intake Total 840 / 840 Balance 840 / 840 Intake: Oral 840 / 840 Other: Meal Lunch Percent of Meal Consumed 100% - Extremities Exam Additional comments: 3=-4-/ Right sided strength. Fair control - Neurological Exam Additional comments: Sensation intact - Psychiatric Psychiatric exam: Present: normal affect, normal mood - Skin Skin exam: Present: intact Physical Medicine-PN: Obj Data - Labs CBC & Chem 7: 09/21/17 05:35 09/21/17 05:35 Labs: Laboratory Results - last 24 hr 09/21/17 09/21/17 05:35 05:35 WBC 8.8 RBC 3.91 L Hgb 11.2 L Hct 33.1 L MCV 84.7 MCH 28.6 MCHC 33.8 RDW 16.3 H Plt Count 220 MPV 8.9 L Immature Gran % 0.5 Seg Neutrophils % 67.2 Lymphocytes % 20.8 Monocytes % 8.6 Eosinophils % 2.4 Basophils % 0.5 Neutrophils # 5.9 Lymphocytes # 1.8 Monocytes # 0.8 Eosinophils # 0.2 Basophils # 0.0 Sodium 136 Potassium 4.1 Chloride 101 Carbon Dioxide 28 BUN 19 Creatinine 1.29 Est GFR ( Amer) > 60 Est GFR (Non-Af Amer) 56 L BUN/Creatinine Ratio 15 Glucose 128 H Calculated Osmolality 286 Calcium 9.2 - Impressions Impressions Spine Flexion/Extension X-Ray 09/21/17 10:50 IMPRESSION: Minimal arthritic change within facet joints. No significant degenerative disc changes. No acute findings. D/ / Sd Pierson MD / Sd Pierson MD Interpreting Provider: Sd Pierson MD - ABG Interpretation ABG results: PT/INR, D-dimer PT 12.4 Seconds (9.4-12.1) H 08/13/17 06:48 - VTE Documentation of Mechanical Device: Graduated compression elastic hosiery Consult Discharge Plan - Plan Referrals: Ambika Underwood MD [Primary Care Provider] -
--- NOTE | 2017-09-21 17:22 | Physical Med Progress Note ---
Date of Encounter: 09/21/17 Time of Encounter: 17:18 Assessment and Plan (1) CVA (cerebral vascular accident) Current Visit: Yes Status: Acute Assessment and plan: He needs a powered wheelchair. He has limited use of Right side. He cannot propel a lightweight wheelchair for distance due to his obesity and weakness. He will have trouble moving around in his home eith a light weight chair.. Qualifiers: CVA mechanism: unspecified Qualified Code(s): I63.9 - Cerebral infarction, unspecified (2) Constipation due to neurogenic bowel Current Visit: Yes Status: Resolved - Constitutional Vitals: Vital Signs Temp Pulse Resp BP Pulse Ox 09/21/17 07:00 97.6 F 58 149/80 96 09/20/17 19:00 98.0 F 85 18 170/78 94 Intake and Output 09/21/17 09/21/17 09/21/17 07:59 15:59 23:59 Intake Total 840 / 840 Balance 840 / 840 Intake: Oral 840 / 840 Other: Meal Lunch Percent of Meal Consumed 100% Physical Medicine-PN: Obj Data - Labs CBC & Chem 7: 09/21/17 05:35 09/21/17 05:35 Labs: Laboratory Results - last 24 hr 09/21/17 09/21/17 05:35 05:35 WBC 8.8 RBC 3.91 L Hgb 11.2 L Hct 33.1 L MCV 84.7 MCH 28.6 MCHC 33.8 RDW 16.3 H Plt Count 220 MPV 8.9 L Immature Gran % 0.5 Seg Neutrophils % 67.2 Lymphocytes % 20.8 Monocytes % 8.6 Eosinophils % 2.4 Basophils % 0.5 Neutrophils # 5.9 Lymphocytes # 1.8 Monocytes # 0.8 Eosinophils # 0.2 Basophils # 0.0 Sodium 136 Potassium 4.1 Chloride 101 Carbon Dioxide 28 BUN 19 Creatinine 1.29 Est GFR ( Amer) > 60 Est GFR (Non-Af Amer) 56 L BUN/Creatinine Ratio 15 Glucose 128 H Calculated Osmolality 286 Calcium 9.2 - Impressions Impressions Spine Flexion/Extension X-Ray 09/21/17 10:50 IMPRESSION: Minimal arthritic change within facet joints. No significant degenerative disc changes. No acute findings. D/ / Sd Pierson MD / Sd Pierson MD Interpreting Provider: Sd Pierson MD - ABG Interpretation ABG results: PT/INR, D-dimer PT 12.4 Seconds (9.4-12.1) H 08/13/17 06:48 - VTE Documentation of Mechanical Device: Graduated compression elastic hosiery Consult Discharge Plan - Plan Referrals: Ambika Underwood MD [Primary Care Provider] -
[2017-09-21] MEDS: Gabapentin 400 MG CAPSULE PO SCH (21:46)
[2017-09-21] MEDS: Melatonin 3 MG TABLET PO SCH (21:46)
[2017-09-21] MEDS: tiZANidine 4 MG TABLET PO PRN (21:47)
[2017-09-21] MEDS: traZODone 50 MG TABLET PO SCH (21:47)
[2017-09-21] MEDS: Nystatin POWDER 30 GM BOTTLE TP SCH (21:47)
[2017-09-22] MEDS: *HR* HYDROcodone/Acet 5/325 mg TABLET PO PRN ×3 (02:08→14:48)
[2017-09-22] MEDS: *HR* Heparin 5,000 UNIT/ML VIAL SQ SCH ×2 (06:42→17:55)
[2017-09-22] MEDS: Nicotine 14 MG PATCH.TD24 TD SCH (08:07)
[2017-09-22] MEDS: *HR* Metformin 500 MG TABLET PO SCH ×2 (08:07→17:13)
[2017-09-22] MEDS: Cholecalciferol (D-3) 1,000 UNIT TABLET PO SCH (08:07)
[2017-09-22] MEDS: Lisinopril 20 MG TABLET PO SCH (08:07)
[2017-09-22] MEDS: Aspirin 81 MG TAB.CHEW PO SCH (08:07)
[2017-09-22] MEDS: Nystatin POWDER 30 GM BOTTLE TP SCH ×2 (08:19→19:52)
--- NOTE | 2017-09-22 11:42 | Internal Med Progress Note ---
Date of Encounter: 09/22/17 Time of Encounter: 11:39 - Assessment and plan (1) CVA (cerebral vascular accident) Current Visit: Yes Status: Acute Assessment and plan: improving right sided weakness. No new neurological deficits. Continue PT\OT\ ST. Will follow progress. Follow up with neuro scheduled. . Qualifiers: CVA mechanism: unspecified Qualified Code(s): I63.9 - Cerebral infarction, unspecified (2) Diabetes Current Visit: Yes Status: Chronic Assessment and plan: Controlled. glucose running between 100-130. Continue to monitor fingerstick blood sugar. Continue current medications. Will adjust as necessary. 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 Continue to monitor blood pressure. Qualifiers: Hypertension type: essential hypertension Qualified Code(s): I10 - Essential (primary) hypertension (4) Obesity Current Visit: Yes Status: Chronic Assessment and plan: continue education Qualifiers: Obesity type: due to excess calories Qualified Code(s): E66.01 - Morbid ( severe) obesity due to excess calories; Z68.35 - Body mass index (BMI) 35.0-35.9 , adult; Z68.35 - Body mass index (BMI) 35.0-35.9, adult (5) Insomnia Current Visit: Yes Status: Acute Assessment and plan: still having difficulty sleeping. will discuss with Dr Lancaster. Qualifiers: Insomnia type: primary Qualified Code(s): F51.01 - Primary insomnia (6) Right arm pain Current Visit: Yes Status: Acute Assessment and plan: MRI of cervical spine ordered. Will follow for results. Continue Lidoderm patch. - Time Spent With Patient 25 - 35 minutes - Subjective Interval history: States he did not sleep well last night, due to continuous pulse ox alarming. continues to have pain in right hand when laying supine. x-rays negative yesterday. discussed with patient about ordering an MRI of neck. continues to make slow progress with therapy. - Constitutional Vitals: Temp Pulse Resp BP Pulse Ox 97.6 F 57 17 138/84 95 09/22/17 07:04 09/22/17 07:04 09/22/17 07:04 09/22/17 07:04 09/22/17 07:04 General appearance: Present: cooperative, morbidly obese, pleasant, obese, answers questions appropriately - Head Head exam: Present: atraumatic, normocephalic - Eye Eye exam: Present: PERRL, conjuntiva pink, sclera anicteric Pupils: Present: PERRL - Neck Neck exam general surgery: Present: supple, trachea midline. Absent: lymphadenopathy - Respiratory Respiratory exam: Present: CTAB. Absent: accessory muscle use, rales, rhonchi, wheezes - Cardiovascular Cardiovascular exam: Present: RRR, +S1, +S2. Absent: diastolic murmur, gallop, rubs, systolic murmur - GI/Abdominal GI/Abdominal exam: Present: normal bowel sounds, soft, no peritoneal signs. Absent: distended, tenderness - Extremities Exam Extremities exam: Present: warm, radial pulses palpable and symmetrical. Absent : calf tenderness, cyanotic, pedal edema - Neurological Exam Neurological exam: Present: CN II-XII intact, oriented X3, no focal deficits. Absent: pronater drift, facial droop, speech deficit - Skin Skin exam: Present: dry, intact Internal Medicine: Result - Labs CBC & Chem 7: 09/21/17 05:35 09/21/17 05:35 - ABG Interpretation ABG results: PT/INR, D-dimer PT 12.4 Seconds (9.4-12.1) H 08/13/17 06:48 - Impressions Impressions Spine Flexion/Extension X-Ray 09/21/17 10:50 IMPRESSION: Minimal arthritic change within facet joints. No significant degenerative disc changes. No acute findings. D/ / Sd Pierson MD / Sd Pierson MD Interpreting Provider: Sd Pierson MD - VTE Documentation of Mechanical Device: Graduated compression elastic hosiery Consult Discharge Plan - Plan Referrals: Ambika Underwood MD [Primary Care Provider] -
[2017-09-22] MEDS: Melatonin 3 MG TABLET PO SCH (19:51)
[2017-09-22] MEDS: traZODone 50 MG TABLET PO SCH (19:52)
[2017-09-22] MEDS: Gabapentin 400 MG CAPSULE PO SCH (19:52)
[2017-09-23] MEDS: *HR* HYDROcodone/Acet 5/325 mg TABLET PO PRN ×3 (02:12→20:54)
[2017-09-23] MEDS: *HR* Heparin 5,000 UNIT/ML VIAL SQ SCH ×2 (06:11→18:10)
[2017-09-23] MEDS: Lisinopril 20 MG TABLET PO SCH (08:12)
[2017-09-23] MEDS: *HR* Metformin 500 MG TABLET PO SCH ×2 (08:12→18:09)
[2017-09-23] MEDS: Nicotine 14 MG PATCH.TD24 TD SCH (08:12)
[2017-09-23] MEDS: Cholecalciferol (D-3) 1,000 UNIT TABLET PO SCH (08:12)
[2017-09-23] MEDS: Nystatin POWDER 30 GM BOTTLE TP SCH ×2 (08:12→21:49)
[2017-09-23] MEDS: Aspirin 81 MG TAB.CHEW PO SCH (08:12)
--- NOTE | 2017-09-23 11:37 | Internal Med Progress Note ---
Date of Encounter: 09/23/17 Time of Encounter: 11:35 - Assessment and plan (1) CVA (cerebral vascular accident) Current Visit: Yes Status: Acute Assessment and plan: improving right sided weakness. No new neurological deficits. Continue PT\OT\ ST. Will follow progress. Follow up with neuro scheduled. . Qualifiers: CVA mechanism: unspecified Qualified Code(s): I63.9 - Cerebral infarction, unspecified (2) Diabetes Current Visit: Yes Status: Chronic Assessment and plan: Controlled. glucose running between 100-130. Continue to monitor fingerstick blood sugar. Continue current medications. Will adjust as necessary. Qualifiers: Diabetes mellitus type: type 2 Diabetes mellitus chcf insulin use: without chcf use Diabetes mellitus complication status: with unspecified complications Qualified Code(s): E11.8 - Type 2 diabetes mellitus with unspecified complications (3) Hypertension Current Visit: Yes Status: Chronic Assessment and plan: Controlled with current medication. Continue to monitor blood pressure. Qualifiers: Hypertension type: essential hypertension Qualified Code(s): I10 - Essential (primary) hypertension (4) Obesity Current Visit: Yes Status: Chronic Assessment and plan: continue education Qualifiers: Obesity type: due to excess calories Qualified Code(s): E66.01 - Morbid ( severe) obesity due to excess calories; Z68.35 - Body mass index (BMI) 35.0-35.9 , adult; Z68.35 - Body mass index (BMI) 35.0-35.9, adult (5) Insomnia Current Visit: Yes Status: Acute Assessment and plan: improving Qualifiers: Insomnia type: primary Qualified Code(s): F51.01 - Primary insomnia (6) Right arm pain Current Visit: Yes Status: Acute Assessment and plan: MRI of cervical spine ordered. Will follow for results. Continue Lidoderm patch. - Time Spent With Patient less than 15 minutes - Subjective Interval history: continues to make slow progress with therapy. states slept much better last night. pain improving in right hand, wore a compression glove that helped with edema and pain. scheduled for cervical MRI in 2 days. denies any complaints at this time. - Constitutional Vitals: Temp Pulse Resp BP Pulse Ox 98.4 F 74 19 144/77 95 09/23/17 07:00 09/23/17 07:00 09/23/17 07:00 09/23/17 07:00 09/23/17 07:00 General appearance: Present: cooperative, morbidly obese, pleasant, obese, answers questions appropriately - Head Head exam: Present: atraumatic, normocephalic - Eye Eye exam: Present: PERRL, conjuntiva pink, sclera anicteric Pupils: Present: PERRL - Neck Neck exam general surgery: Present: supple, trachea midline. Absent: lymphadenopathy - Respiratory Respiratory exam: Present: CTAB. Absent: accessory muscle use, rales, rhonchi, wheezes - Cardiovascular Cardiovascular exam: Present: RRR, +S1, +S2. Absent: diastolic murmur, gallop, rubs, systolic murmur - GI/Abdominal GI/Abdominal exam: Present: normal bowel sounds, soft, no peritoneal signs. Absent: distended, tenderness - Extremities Exam Extremities exam: Present: warm, radial pulses palpable and symmetrical. Absent : calf tenderness, cyanotic, pedal edema Additional comments: edema right hand - Neurological Exam Neurological exam: Present: CN II-XII intact, oriented X3, no focal deficits. Absent: pronater drift, facial droop, speech deficit - Skin Skin exam: Present: dry, intact Internal Medicine: Result - Labs CBC & Chem 7: 09/21/17 05:35 09/21/17 05:35 - ABG Interpretation ABG results: PT/INR, D-dimer PT 12.4 Seconds (9.4-12.1) H 08/13/17 06:48 - VTE Documentation of Mechanical Device: Graduated compression elastic hosiery Consult Discharge Plan - Plan Referrals: Ambika Underwood MD [Primary Care Provider] -
[2017-09-23] MEDS: tiZANidine 4 MG TABLET PO PRN (12:07)
--- NOTE | 2017-09-23 17:21 | Physical Med Progress Note ---
Date of Encounter: 09/23/17 Time of Encounter: 15:00 Assessment and Plan (1) CVA (cerebral vascular accident) Current Visit: Yes Status: Acute Assessment and plan: Doing well. good progress. Gait deteriorates after about 100'. He will need a Custom molded AFO RLE for foot drop. Qualifiers: CVA mechanism: unspecified Qualified Code(s): I63.9 - Cerebral infarction, unspecified (2) Constipation due to neurogenic bowel Current Visit: Yes Status: Resolved Physical Medicine-PN: Subj Interval history: No C/O. Working hard. - Constitutional Vitals: Vital Signs Temp Pulse Resp BP Pulse Ox 09/23/17 07:00 98.4 F 74 19 144/77 95 09/22/17 19:00 98.2 F 74 15 135/80 97 Intake and Output 09/23/17 09/23/17 09/23/17 07:59 15:59 23:59 Intake Total 700 / 700 480 / 480 Balance 700 / 700 480 / 480 Intake: Oral 700 / 700 480 / 480 Other: Meal Lunch Percent of Meal Consumed 100% # Voids 1 - Extremities Exam Additional comments: RUE weakness 4-/5. Functional for light activities. 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 Moderately impaired motor control Right side. - Neurological Exam Neurological exam: Present: abnormal gait, alert, motor sensory deficit, oriented X3 - Psychiatric Psychiatric exam: Present: normal affect, normal mood - Skin Skin exam: Present: intact Physical Medicine-PN: Obj Data - Labs CBC & Chem 7: 09/21/17 05:35 09/21/17 05:35 - ABG Interpretation ABG results: PT/INR, D-dimer PT 12.4 Seconds (9.4-12.1) H 08/13/17 06:48 - VTE Documentation of Mechanical Device: Graduated compression elastic hosiery Consult Discharge Plan - Plan Referrals: Ambika Underwood MD [Primary Care Provider] -
[2017-09-23] MEDS: Melatonin 3 MG TABLET PO SCH (20:50)
[2017-09-23] MEDS: traZODone 50 MG TABLET PO SCH (20:51)
[2017-09-23] MEDS: Gabapentin 400 MG CAPSULE PO SCH (20:51)
[2017-09-24] MEDS: *HR* Heparin 5,000 UNIT/ML VIAL SQ SCH ×2 (05:16→16:42)
[2017-09-24] MEDS: Aspirin 81 MG TAB.CHEW PO SCH (08:24)
[2017-09-24] MEDS: Nicotine 14 MG PATCH.TD24 TD SCH (08:24)
[2017-09-24] MEDS: *HR* Metformin 500 MG TABLET PO SCH ×2 (08:24→16:41)
[2017-09-24] MEDS: Lisinopril 20 MG TABLET PO SCH (08:24)
[2017-09-24] MEDS: Cholecalciferol (D-3) 1,000 UNIT TABLET PO SCH (08:24)
[2017-09-24] MEDS: Nystatin POWDER 30 GM BOTTLE TP SCH ×2 (08:59→20:53)
--- NOTE | 2017-09-24 10:08 | Internal Med Progress Note ---
Date of Encounter: 09/24/17 Time of Encounter: 10:06 - Assessment and plan (1) CVA (cerebral vascular accident) Current Visit: Yes Status: Acute Assessment and plan: Patient continues with this right hemiparesis . Increase in MS on RE over the past few weeks, which shows 4/5. Pt reportedly continues to progress with walking distance, but continues to have issues with endurance. Ankle brace obtained to maintain alignment. Patient continues with complaints of slight intermittent pain to her right arm that occurs at night when he is attempting to sleep, which has been improving with several interventions applied. Patient to continue with speech therapy and physical therapy. Patient continues to progress well with physical therapy. Qualifiers: CVA mechanism: unspecified Qualified Code(s): I63.9 - Cerebral infarction, unspecified (2) Diabetes Current Visit: Yes Status: Chronic Assessment and plan: No acute issues. Patient's glucose has been fairly well-controlled with most measurements at 120-150. Patient continues with fingersticks with SSI coverage. 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 Patient continues slightly elevated systolic blood pressure mostly 150-160. Continue to monitor closely Qualifiers: Hypertension type: essential hypertension Qualified Code(s): I10 - Essential (primary) hypertension - Time Spent With Patient less than 15 minutes - Subjective Interval history: Patient appears relaxed and denies any current discomforts or shortness of breath. Patient states that he continues to have intermittent right arm pain that occurs during the night and prevents him from sleeping, but this issue has been improving with several interventions applied. Patient states that he feels that physical therapy has been going well and that he has had a increase in movement on the right arm and leg. Patient has had reports of increasing his distance of ambulation during therapy. - Constitutional Vitals: Temp Pulse Resp BP Pulse Ox 98.3 F 79 16 154/67 95 09/23/17 20:00 09/24/17 08:00 09/24/17 08:00 09/24/17 08:00 09/24/17 08:00 General appearance: Present: cooperative, A&O X 3, morbidly obese, pleasant, obese, answers questions appropriately - Head Head exam: Present: atraumatic, normocephalic - Eye Eye exam: Present: PERRL, conjuntiva pink, sclera anicteric Pupils: Present: PERRL - Neck Neck exam general surgery: Present: supple, trachea midline. Absent: lymphadenopathy - Respiratory Respiratory exam: Present: CTAB. Absent: accessory muscle use, rales, rhonchi, wheezes - Cardiovascular Cardiovascular exam: Present: RRR, +S1, +S2. Absent: diastolic murmur, gallop, rubs, systolic murmur - GI/Abdominal GI/Abdominal exam: Present: normal bowel sounds, soft, no peritoneal signs. Absent: distended, tenderness - Extremities Exam Extremities exam: Present: warm, radial pulses palpable and symmetrical. Absent : calf tenderness, cyanotic, pedal edema - Neurological Exam Neurological exam: Present: CN II-XII intact, oriented X3. Absent: pronater drift, facial droop, speech deficit Additional comments: Continues to have right hemiparesis with RE 4/5 MS both prox/distal for flex/ ext and LE 5/5 MS - Skin Skin exam: Present: dry, intact Internal Medicine: Result - Labs CBC & Chem 7: 09/21/17 05:35 09/21/17 05:35 - ABG Interpretation ABG results: PT/INR, D-dimer PT 12.4 Seconds (9.4-12.1) H 08/13/17 06:48 - VTE Documentation of Mechanical Device: Graduated compression elastic hosiery Consult Discharge Plan - Plan Referrals: Ambika Underwood MD [Primary Care Provider] -
[2017-09-24] MEDS: Melatonin 3 MG TABLET PO SCH (20:50)
[2017-09-24] MEDS: traZODone 50 MG TABLET PO SCH (20:53)
[2017-09-24] MEDS: Gabapentin 400 MG CAPSULE PO SCH (20:53)
[2017-09-24] MEDS: *HR* HYDROcodone/Acet 5/325 mg TABLET PO PRN (20:54)
[2017-09-25] MEDS: *HR* Heparin 5,000 UNIT/ML VIAL SQ SCH ×2 (05:01→17:26)
[2017-09-25] MEDS: *HR* Metformin 500 MG TABLET PO SCH ×2 (08:09→17:25)
[2017-09-25] MEDS: Aspirin 81 MG TAB.CHEW PO SCH (08:10)
[2017-09-25] MEDS: *HR* HYDROcodone/Acet 5/325 mg TABLET PO PRN ×3 (08:10→22:15)
[2017-09-25] MEDS: Nicotine 14 MG PATCH.TD24 TD SCH (08:10)
[2017-09-25] MEDS: Cholecalciferol (D-3) 1,000 UNIT TABLET PO SCH (08:10)
[2017-09-25] MEDS: Lisinopril 20 MG TABLET PO SCH (08:10)
[2017-09-25] MEDS: Nystatin POWDER 30 GM BOTTLE TP SCH ×3 (08:10→20:34)
--- NOTE | 2017-09-25 11:43 | Internal Med Progress Note ---
Date of Encounter: 09/25/17 Time of Encounter: 11:26 - Assessment and plan (1) CVA (cerebral vascular accident) Current Visit: Yes Status: Acute Assessment and plan: Patient continues with this right hemiparesis . Increase in MS on RE over the past few weeks, which shows 4/5. Pt reportedly continues to progress with walking distance, but continues to have issues with endurance. Ankle brace obtained to maintain alignment. Patient continues with complaints of slight intermittent pain to her right arm that occurs at night when he is attempting to sleep, which has been improving with several interventions applied. Patient to continue with speech therapy and physical therapy. Patient continues to progress well with physical therapy. Qualifiers: CVA mechanism: unspecified Qualified Code(s): I63.9 - Cerebral infarction, unspecified (2) Diabetes Current Visit: Yes Status: Chronic Assessment and plan: No acute issues. Patient's glucose has been fairly well-controlled with most measurements at 120-150. Patient continues with fingersticks with SSI coverage. Continue with current medication regimen Qualifiers: Diabetes mellitus type: type 2 Diabetes mellitus termination clerk insulin use: without termination clerk use Diabetes mellitus complication status: with unspecified complications Qualified Code(s): E11.8 - Type 2 diabetes mellitus with unspecified complications (3) Hypertension Current Visit: Yes Status: Chronic Assessment and plan: No acute issues. Patient continues slightly elevated systolic blood pressure mostly 150-160. Continue to monitor closely Qualifiers: Hypertension type: essential hypertension Qualified Code(s): I10 - Essential (primary) hypertension - Time Spent With Patient less than 15 minutes - Subjective Interval history: Patient appears relaxed and denies any current discomforts or shortness of breath. Patient states that he continues to have intermittent right arm pain that occurs during the night. Patient states that he feels that physical therapy has been going well and that he has had a increase in movement on the right arm and leg. Continues to ambulate >100 with walker, but continues with poor endurance. - Constitutional Vitals: Temp Pulse Resp BP Pulse Ox 97.8 F 71 18 163/84 97 09/25/17 07:33 09/25/17 07:33 09/25/17 07:33 09/25/17 07:33 09/25/17 07:33 General appearance: Present: cooperative, A&O X 3, morbidly obese, pleasant, obese, answers questions appropriately - Head Head exam: Present: atraumatic, normocephalic - Eye Eye exam: Present: PERRL, conjuntiva pink, sclera anicteric Pupils: Present: PERRL - Neck Neck exam general surgery: Present: supple, trachea midline. Absent: lymphadenopathy - Respiratory Respiratory exam: Present: CTAB. Absent: accessory muscle use, rales, rhonchi, wheezes - Cardiovascular Cardiovascular exam: Present: RRR, +S1, +S2. Absent: diastolic murmur, gallop, rubs, systolic murmur - GI/Abdominal GI/Abdominal exam: Present: normal bowel sounds, soft, no peritoneal signs. Absent: distended, tenderness - Extremities Exam Extremities exam: Present: warm, radial pulses palpable and symmetrical. Absent : calf tenderness, cyanotic, pedal edema - Neurological Exam Neurological exam: Present: CN II-XII intact, oriented X3. Absent: pronater drift, facial droop, speech deficit Additional comments: Patient continues with right hemiparesis. RE MS 4/5 both distal/prox for flex/ ext. LE MS 5/5. - Skin Skin exam: Present: dry, intact Internal Medicine: Result - Labs CBC & Chem 7: 09/21/17 05:35 09/21/17 05:35 - ABG Interpretation ABG results: PT/INR, D-dimer PT 12.4 Seconds (9.4-12.1) H 08/13/17 06:48 - VTE Documentation of Mechanical Device: Graduated compression elastic hosiery Consult Discharge Plan - Plan Referrals: Ambika Underwood MD [Primary Care Provider] -
[2017-09-25] MEDS: Gabapentin 400 MG CAPSULE PO SCH (20:28)
[2017-09-25] MEDS: Melatonin 3 MG TABLET PO SCH (20:28)
[2017-09-25] MEDS: traZODone 50 MG TABLET PO SCH (20:29)
[2017-09-26] MEDS: *HR* Heparin 5,000 UNIT/ML VIAL SQ SCH ×2 (05:02→18:18)
[2017-09-26] MEDS: *HR* HYDROcodone/Acet 5/325 mg TABLET PO PRN ×3 (05:06→21:13)
[2017-09-26] MEDS: Lisinopril 20 MG TABLET PO SCH (08:20)
[2017-09-26] MEDS: Nicotine 14 MG PATCH.TD24 TD SCH (08:20)
[2017-09-26] MEDS: Cholecalciferol (D-3) 1,000 UNIT TABLET PO SCH (08:20)
[2017-09-26] MEDS: *HR* Metformin 500 MG TABLET PO SCH ×2 (08:20→17:13)
[2017-09-26] MEDS: Aspirin 81 MG TAB.CHEW PO SCH (08:21)
--- NOTE | 2017-09-26 16:01 | Internal Med Progress Note ---
Date of Encounter: 09/26/17 Time of Encounter: 15:58 - Assessment and plan (1) CVA (cerebral vascular accident) Current Visit: Yes Status: Acute Assessment and plan: Continued slow improvement. Insomnia has been better the last 3 nights Qualifiers: CVA mechanism: unspecified Qualified Code(s): I63.9 - Cerebral infarction, unspecified (2) Diabetes Current Visit: Yes Status: Chronic Assessment and plan: Improved with weight loss and dietary improvements. Continues to be controlled. Qualifiers: Diabetes mellitus type: type 2 Diabetes mellitus shelter insulin use: without extermination supervisor use Diabetes mellitus complication status: with unspecified complications Qualified Code(s): E11.8 - Type 2 diabetes mellitus with unspecified complications (3) Hypertension Current Visit: Yes Status: Chronic Assessment and plan: Clinically stable. We will continue home regimen and follow. Qualifiers: Hypertension type: essential hypertension Qualified Code(s): I10 - Essential (primary) hypertension (4) Slow transit constipation Current Visit: Yes Status: Acute Assessment and plan: We will continue to follow. Laxatives advised, as above. (5) Insomnia Current Visit: Yes Status: Acute Assessment and plan: See above. Again, I think this is symptomatically in his arm, primarily. He is slept relatively well last 3 nights. We will continue to evaluate his neck for impingement. Qualifiers: Insomnia type: primary Qualified Code(s): F51.01 - Primary insomnia (6) Paresthesia of right upper extremity Current Visit: Yes Status: Acute Assessment and plan: As stated above and as stated before: I am concerned that this is positional. This is affecting his sleep and other problems and we will investigate to make sure he does not have an occult radiculopathy, etc. - Subjective Interval history: Patient has no new complaints. He is pleased with his therapy and things continue to progress. It has been a couple of days since his last bowel movement he will take laxatives today. We discussed his inability to have an MRI. He states that it was his size more than his anxiety that was limiting. Therefore, we will arrange to have this obtained at [facility]. We will talk to administration on Thursday more than likely he will need this as an outpatient. Patient has no complaint of chest discomfort, dyspnea, orthopnea, palpitations, nausea or vomiting, constipation or diarrhea, other changes in bowel habits, difficulty with urination, rash or itching, or other new complaints, except as mentioned above. Review of systems is otherwise unremarkable. - Constitutional Vitals: Temp Pulse Resp BP Pulse Ox 98.2 F 68 16 151/72 95 09/26/17 07:03 09/26/17 07:03 09/26/17 07:03 09/26/17 07:03 09/26/17 07:03 General appearance: Present: cooperative, morbidly obese, pleasant, obese, answers questions appropriately Exam: Examination: (Except as mentioned above): General: In no apparent distress. Alert and oriented 3. Nondiaphoretic. Head: Atraumatic and normocephalic. Respiratory: No use of accessory muscles. Lungs are clear throughout. Normal airflow. Cardiovascular: Regular rate and rhythm without murmur appreciated. Abdomen: Bowel sounds are normal. No hepatosplenomegaly mass or tenderness appreciated. Obese and therefore difficult to palpate deeply. Patient is examined upright in chair and this also limits exam. Extremities: No cyanosis clubbing or edema. Skin: Warm and non-diaphoretic with no new lesions noted. Neurologic: Patient continues to have right hemiparesis but this is still improved versus a few days ago. He has right ataxia but weakness is 4+/5. Internal Medicine: Result - Labs CBC & Chem 7: 09/21/17 05:35 09/21/17 05:35 - ABG Interpretation ABG results: PT/INR, D-dimer PT 12.4 Seconds (9.4-12.1) H 08/13/17 06:48 - VTE Documentation of Mechanical Device: Graduated compression elastic hosiery Consult Discharge Plan - Plan Referrals: Ambika Underwood MD [Primary Care Provider] -
[2017-09-26] MEDS: Nystatin POWDER 30 GM BOTTLE TP SCH ×2 (17:14→21:23)
[2017-09-26] MEDS: traZODone 50 MG TABLET PO SCH (21:12)
[2017-09-26] MEDS: Melatonin 3 MG TABLET PO SCH (21:12)
[2017-09-26] MEDS: tiZANidine 4 MG TABLET PO PRN (21:13)
[2017-09-26] MEDS: Gabapentin 400 MG CAPSULE PO SCH (21:13)
[2017-09-27] MEDS: *HR* HYDROcodone/Acet 5/325 mg TABLET PO PRN ×5 (02:33→21:45)
[2017-09-27] MEDS: *HR* Heparin 5,000 UNIT/ML VIAL SQ SCH ×2 (06:34→17:13)
[2017-09-27] MEDS: tiZANidine 4 MG TABLET PO PRN ×2 (08:18→21:45)
[2017-09-27] MEDS: Lisinopril 20 MG TABLET PO SCH (08:18)
[2017-09-27] MEDS: Cholecalciferol (D-3) 1,000 UNIT TABLET PO SCH (08:18)
[2017-09-27] MEDS: *HR* Metformin 500 MG TABLET PO SCH ×2 (08:18→17:12)
[2017-09-27] MEDS: Aspirin 81 MG TAB.CHEW PO SCH (08:18)
[2017-09-27] MEDS: Nicotine 7 MG PATCH.TD24 TD SCH (08:18)
[2017-09-27] MEDS: Nystatin POWDER 30 GM BOTTLE TP SCH ×2 (08:21→23:04)
--- NOTE | 2017-09-27 14:49 | Internal Med Progress Note ---
Date of Encounter: 09/27/17 Time of Encounter: 14:46 - Assessment and plan (1) CVA (cerebral vascular accident) Current Visit: Yes Status: Acute Assessment and plan: Continued slow improvement. Insomnia has been better the last 4 nights. Qualifiers: CVA mechanism: unspecified Qualified Code(s): I63.9 - Cerebral infarction, unspecified (2) Diabetes Current Visit: Yes Status: Chronic Assessment and plan: Improved with weight loss and dietary improvements. Continues to be controlled. Qualifiers: Diabetes mellitus type: type 2 Diabetes mellitus terminal make up operator insulin use: without terminal make up operator use Diabetes mellitus complication status: with unspecified complications Qualified Code(s): E11.8 - Type 2 diabetes mellitus with unspecified complications (3) Hypertension Current Visit: Yes Status: Chronic Assessment and plan: We will continue to follow. Some high readings. Will not increase medication at this time but may need to consider. Qualifiers: Hypertension type: essential hypertension Qualified Code(s): I10 - Essential (primary) hypertension (4) Slow transit constipation Current Visit: Yes Status: Acute Assessment and plan: We will continue to follow. Moderately controlled. (5) Insomnia Current Visit: Yes Status: Acute Qualifiers: Insomnia type: primary Qualified Code(s): F51.01 - Primary insomnia (6) Paresthesia of right upper extremity Current Visit: Yes Status: Acute Assessment and plan: As per yesterday, will discontinue order for MRI and advised the patient have this after discharge because of needing a larger MRI unit. - Subjective Interval history: Patient has no new complaints. He is upset with his persistent arm and hand pain, while sleeping. He thinks "they overworked me yesterday." I related this to possible lymphedema and advised. Elevated which he states he has been told to do in the past. Patient has no complaint of chest discomfort, dyspnea, orthopnea, palpitations, nausea or vomiting, constipation or diarrhea, other changes in bowel habits, difficulty with urination, rash or itching, or other new complaints, except as mentioned above. Review of systems is otherwise unremarkable. - Constitutional Vitals: Temp Pulse Resp BP Pulse Ox 97.6 F 65 18 169/65 98 09/27/17 07:00 09/27/17 07:00 09/27/17 07:00 09/27/17 07:00 09/27/17 07:00 General appearance: Present: cooperative, morbidly obese, pleasant, answers questions appropriately Exam: Examination: (Except as mentioned above): General: In no apparent distress. Alert and oriented 3. Nondiaphoretic. Head: Atraumatic and normocephalic. Respiratory: No use of accessory muscles. Lungs are clear throughout. Normal airflow. Cardiovascular: Regular rate and rhythm without murmur appreciated. Abdomen: Bowel sounds are normal. No hepatosplenomegaly mass or tenderness appreciated. Obese and therefore difficult to palpate deeply. Extremities: No cyanosis or clubbing. He has some persistent edema in his right lower extremity and right hand is more edematous than usual. It is nontender. Skin: Warm and non-diaphoretic with no new lesions noted. Neurologically: Unchanged with 4+/5 weakness and ataxia right upper and lower extremity. Internal Medicine: Result - Labs CBC & Chem 7: 09/21/17 05:35 09/21/17 05:35 - ABG Interpretation ABG results: PT/INR, D-dimer PT 12.4 Seconds (9.4-12.1) H 08/13/17 06:48 - VTE Documentation of Mechanical Device: Graduated compression elastic hosiery Consult Discharge Plan - Plan Referrals: Ambika Underwood MD [Primary Care Provider] -
[2017-09-27] MEDS: Gabapentin 400 MG CAPSULE PO SCH (21:43)
[2017-09-27] MEDS: traZODone 50 MG TABLET PO SCH (21:44)
[2017-09-27] MEDS: Melatonin 3 MG TABLET PO SCH (21:44)
[2017-09-28] MEDS: *HR* HYDROcodone/Acet 5/325 mg TABLET PO PRN ×4 (04:39→21:28)
[2017-09-28] MEDS: tiZANidine 4 MG TABLET PO PRN ×2 (04:40→21:28)
[2017-09-28] MEDS: *HR* Heparin 5,000 UNIT/ML VIAL SQ SCH ×2 (04:41→17:29)
[2017-09-28 06:15] LABS: BUN/Creatinine Ratio 16 (6-26); Blood Urea Nitrogen 18 mg/dL (8-23); Calcium 9.5 mg/dL (8.6-10.3); Carbon Dioxide 29 mEq/L (23-29); Chloride 100 mEq/L (98-107); Glucose 125 mg/dL (70-105); Osmolality,Calculated 285 (280-300); Sodium 136 mEq/L (136-145); eGFR For African Americans > 60 (> 60); eGFR For Non-African Americans > 60 (> 60)
[2017-09-28] MEDS: *HR* Metformin 500 MG TABLET PO SCH ×2 (08:52→17:29)
[2017-09-28] MEDS: Nicotine 7 MG PATCH.TD24 TD SCH (08:52)
[2017-09-28] MEDS: Aspirin 81 MG TAB.CHEW PO SCH (08:52)
[2017-09-28] MEDS: Cholecalciferol (D-3) 1,000 UNIT TABLET PO SCH (08:52)
[2017-09-28] MEDS: Nystatin POWDER 30 GM BOTTLE TP SCH ×2 (08:53→21:31)
[2017-09-28] MEDS: Lisinopril 20 MG TABLET PO SCH (10:09)
--- NOTE | 2017-09-28 11:30 | Internal Med Progress Note ---
Date of Encounter: 09/28/17 Time of Encounter: 11:28 - Assessment and plan (1) CVA (cerebral vascular accident) Current Visit: Yes Status: Acute Assessment and plan: Continued slow improvement. Insomnia is again worse. Continued therapies and discharge later this week. Qualifiers: CVA mechanism: unspecified Qualified Code(s): I63.9 - Cerebral infarction, unspecified (2) Diabetes Current Visit: Yes Status: Chronic Assessment and plan: Improved with weight loss and dietary improvements. Continues to be well- controlled. Qualifiers: Diabetes mellitus type: type 2 Diabetes mellitus termite helper insulin use: without group home use Diabetes mellitus complication status: with unspecified complications Qualified Code(s): E11.8 - Type 2 diabetes mellitus with unspecified complications (3) Hypertension Current Visit: Yes Status: Chronic Qualifiers: Hypertension type: essential hypertension Qualified Code(s): I10 - Essential (primary) hypertension (4) Slow transit constipation Current Visit: Yes Status: Acute Assessment and plan: We will continue to follow. Encouraged use of when necessary laxative, again today. (5) Insomnia Current Visit: Yes Status: Acute Assessment and plan: See above. We will continue to follow. Qualifiers: Insomnia type: primary Qualified Code(s): F51.01 - Primary insomnia (6) Paresthesia of right upper extremity Current Visit: Yes Status: Acute Assessment and plan: Will plan outpatient MRI, as before. - Subjective Interval history: Patient has no new complaints. He continues to have right arm pain which keeps him from sleeping at night. He did not sleep well at all, last night. He states he took something for constipation yesterday but has not had a bowel movement. atient has no complaint of chest discomfort, dyspnea, orthopnea, palpitations, nausea or vomiting, constipation or diarrhea, other changes in bowel habits, difficulty with urination, rash or itching, or other new complaints, except as mentioned above. Review of systems is otherwise unremarkable. - Constitutional Vitals: Temp Pulse Resp BP Pulse Ox 97.6 F 62 17 106/70 94 09/28/17 07:00 09/28/17 07:00 09/28/17 07:00 09/28/17 07:00 09/28/17 07:00 General appearance: Present: cooperative, morbidly obese, pleasant, answers questions appropriately Exam: Examination: (Except as mentioned above): General: In no apparent distress. Alert and oriented 3. Nondiaphoretic. Head: Atraumatic and normocephalic. Respiratory: No use of accessory muscles. Lungs are clear throughout. Normal airflow. Cardiovascular: Regular rate and rhythm without murmur appreciated. Abdomen: Bowel sounds are normal. No hepatosplenomegaly mass or tenderness appreciated. Obese and therefore difficult to palpate deeply. Extremities: No cyanosis clubbing or edema. (See below.) Skin: Warm and non-diaphoretic with no new lesions noted. Neurologically: 4+/5 weakness as before. Has ataxia and lymphedema, unchanged except possibly slightly less lymphedema and hand. Internal Medicine: Result - Labs CBC & Chem 7: 09/21/17 05:35 09/28/17 05:47 Labs: BMP 09/28/17 05:47 Sodium 136 Potassium 4.0 Chloride 100 Carbon Dioxide 29 BUN 18 Creatinine 1.16 Glucose 125 H Calcium 9.5 - ABG Interpretation ABG results: PT/INR, D-dimer PT 12.4 Seconds (9.4-12.1) H 08/13/17 06:48 - VTE Documentation of Mechanical Device: Graduated compression elastic hosiery Consult Discharge Plan - Plan Referrals: Ambika Underwood MD [Primary Care Provider] -
--- NOTE | 2017-09-28 13:56 | Physical Med Progress Note ---
Date of Encounter: 09/28/17 Time of Encounter: 13:54 Assessment and Plan (1) CVA (cerebral vascular accident) Current Visit: Yes Status: Acute Assessment and plan: Good progress. Will check EMG RUE for radiculopathy. Qualifiers: CVA mechanism: unspecified Qualified Code(s): I63.9 - Cerebral infarction, unspecified (2) Constipation due to neurogenic bowel Current Visit: Yes Status: Resolved Physical Medicine-PN: Subj Interval history: Still having shoulder pain lying flat. Hospitalist concerned about cervical radiculopathy. - Constitutional Vitals: Vital Signs Temp Pulse Resp BP Pulse Ox 09/28/17 07:00 97.6 F 62 17 106/70 94 09/27/17 19:05 98.5 F 69 16 155/82 95 Intake and Output 09/27/17 09/28/17 09/28/17 23:59 07:59 15:59 Intake Total 1030 / 1030 1000 / 1000 360 / 360 Balance 1030 / 1030 1000 / 1000 360 / 360 Intake: Oral 1030 / 1030 1000 / 1000 360 / 360 Other: Meal Dinner Lunch Percent of Meal Consumed 100% 100% # Voids 1 Weight 164.285 kg Patient Weight 09/28/17 23:59 Weight 164.285 kg General appearance: cooperative, morbidly obese, no acute distress - Head Head exam: Present: atraumatic, normocephalic - Eye Eye exam: Present: EOMI - ENT ENT exam: Present: mucous membranes moist - Neck Neck exam: Present: full ROM Additional comments: Negative spurling sign. - Respiratory Respiratory exam: Present: CTAB - Cardiovascular Cardiovascular exam: Present: RRR - GI/Abdominal GI/Abdominal exam: Present: normal bowel sounds, soft - Extremities Exam Additional comments: 3+ to 4-/5 strength RUE. RLE edema. Knee pain with valgus stress and ambulation. 2+ edema. - Neurological Exam Neurological exam: Present: abnormal gait, alert, CN II-XII intact, motor sensory deficit, oriented X3 - Psychiatric Psychiatric exam: Present: normal affect, normal mood - Skin Skin exam: Present: intact Physical Medicine-PN: Obj Data - Labs CBC & Chem 7: 09/21/17 05:35 09/28/17 05:47 Labs: Laboratory Results - last 24 hr 09/28/17 05:47 Sodium 136 Potassium 4.0 Chloride 100 Carbon Dioxide 29 BUN 18 Creatinine 1.16 Est GFR ( Amer) > 60 Est GFR (Non-Af Amer) > 60 BUN/Creatinine Ratio 16 Glucose 125 H Calculated Osmolality 285 Calcium 9.5 - ABG Interpretation ABG results: PT/INR, D-dimer PT 12.4 Seconds (9.4-12.1) H 08/13/17 06:48 - VTE Documentation of Mechanical Device: Graduated compression elastic hosiery Consult Discharge Plan - Plan Referrals: Ambika Underwood MD [Primary Care Provider] -
[2017-09-28] MEDS: Gabapentin 400 MG CAPSULE PO SCH (21:27)
[2017-09-28] MEDS: Melatonin 3 MG TABLET PO SCH (21:27)
[2017-09-28] MEDS: traZODone 50 MG TABLET PO SCH (21:28)
[2017-09-29] MEDS: *HR* HYDROcodone/Acet 5/325 mg TABLET PO PRN ×4 (03:55→20:57)
[2017-09-29] MEDS: tiZANidine 4 MG TABLET PO PRN (03:55)
[2017-09-29] MEDS: *HR* Heparin 5,000 UNIT/ML VIAL SQ SCH ×2 (05:36→16:50)
--- NOTE | 2017-09-29 08:20 | Internal Med Progress Note ---
Date of Encounter: 09/29/17 Time of Encounter: 08:18 - Assessment and plan (1) CVA (cerebral vascular accident) Current Visit: Yes Status: Acute Assessment and plan: Patient is still having problems with insomnia. Will investigate hand and arm pain/paresthesias as before. EMG planned. Qualifiers: CVA mechanism: unspecified Qualified Code(s): I63.9 - Cerebral infarction, unspecified (2) Diabetes Current Visit: Yes Status: Chronic Assessment and plan: Improved and stable. Qualifiers: Diabetes mellitus type: type 2 Diabetes mellitus terminal superintendent insulin use: without terminal superintendent use Diabetes mellitus complication status: with unspecified complications Qualified Code(s): E11.8 - Type 2 diabetes mellitus with unspecified complications (3) Hypertension Current Visit: Yes Status: Chronic Qualifiers: Hypertension type: essential hypertension Qualified Code(s): I10 - Essential (primary) hypertension (4) Slow transit constipation Current Visit: Yes Status: Acute Assessment and plan: We will continue to follow. Advised MiraLAX, as above. (5) Insomnia Current Visit: Yes Status: Acute Assessment and plan: See above. We will continue to follow. Qualifiers: Insomnia type: primary Qualified Code(s): F51.01 - Primary insomnia (6) Paresthesia of right upper extremity Current Visit: Yes Status: Acute Assessment and plan: EMG planned, as above. Hopefully, this will keep us from needing a MRI. - Subjective Interval history: P Patient did not have a good night because of right hand pain. He states that he took Dulcolax again but still no bowel movement. I encouraged him to use MiraLAX. Appreciate Dr. Lancaster's involvement. EMG plan tomorrow to evaluate neck. atient has no complaint of chest discomfort, dyspnea, orthopnea, palpitations, nausea or vomiting, constipation or diarrhea, other changes in bowel habits, difficulty with urination, rash or itching, or other new complaints, except as mentioned above. Review of systems is otherwise unremarkable. - Constitutional Vitals: Temp Pulse Resp BP Pulse Ox 97.6 F 58 17 118/71 93 09/29/17 07:11 09/29/17 07:11 09/29/17 07:11 09/29/17 07:11 09/29/17 07:11 General appearance: Present: cooperative, morbidly obese, pleasant, answers questions appropriately Exam: Examination: (Except as mentioned above): General: In no apparent distress. Alert and oriented 3. Nondiaphoretic. Head: Atraumatic and normocephalic. Respiratory: No use of accessory muscles. Lungs are clear throughout. Normal airflow. Cardiovascular: Regular rate and rhythm without murmur appreciated. Abdomen: Bowel sounds are normal. No hepatosplenomegaly mass or tenderness appreciated. Obese and therefore difficult to palpate deeply. Patient is examined upright in chair and this also limits exam. Extremities: No cyanosis clubbing or edema. Skin: Warm and non-diaphoretic with no new lesions noted. Internal Medicine: Result - Labs CBC & Chem 7: 09/21/17 05:35 09/28/17 05:47 - ABG Interpretation ABG results: PT/INR, D-dimer PT 12.4 Seconds (9.4-12.1) H 08/13/17 06:48 - VTE Documentation of Mechanical Device: Graduated compression elastic hosiery Consult Discharge Plan - Plan Referrals: Ambika Underwood MD [Primary Care Provider] -
[2017-09-29] MEDS: Nicotine 7 MG PATCH.TD24 TD SCH (08:23)
[2017-09-29] MEDS: Aspirin 81 MG TAB.CHEW PO SCH (08:24)
[2017-09-29] MEDS: Lisinopril 20 MG TABLET PO SCH (08:24)
[2017-09-29] MEDS: Sennosides 8.6 MG TABLET PO PRN ×2 (08:24→09:50)
[2017-09-29] MEDS: *HR* Metformin 500 MG TABLET PO SCH ×2 (08:24→16:50)
[2017-09-29] MEDS: Cholecalciferol (D-3) 1,000 UNIT TABLET PO SCH (08:24)
[2017-09-29] MEDS: Nystatin POWDER 30 GM BOTTLE TP SCH ×2 (09:50→21:00)
[2017-09-29] MEDS: Melatonin 3 MG TABLET PO SCH (20:55)
[2017-09-29] MEDS: traZODone 50 MG TABLET PO SCH (20:56)
[2017-09-29] MEDS: Gabapentin 400 MG CAPSULE PO SCH (20:56)
[2017-09-30] MEDS: *HR* HYDROcodone/Acet 5/325 mg TABLET PO PRN ×4 (02:09→20:50)
[2017-09-30] MEDS: *HR* Heparin 5,000 UNIT/ML VIAL SQ SCH ×2 (05:34→17:52)
[2017-09-30] MEDS: Aspirin 81 MG TAB.CHEW PO SCH (08:53)
[2017-09-30] MEDS: Cholecalciferol (D-3) 1,000 UNIT TABLET PO SCH (08:53)
[2017-09-30] MEDS: Nicotine 7 MG PATCH.TD24 TD SCH (08:53)
[2017-09-30] MEDS: *HR* Metformin 500 MG TABLET PO SCH ×2 (08:54→17:52)
[2017-09-30] MEDS: Lisinopril 20 MG TABLET PO SCH (08:54)
[2017-09-30] MEDS: Nystatin POWDER 30 GM BOTTLE TP SCH ×2 (08:54→20:49)
[2017-09-30] MEDS: Sennosides 8.6 MG TABLET PO PRN (08:54)
--- NOTE | 2017-09-30 15:01 | Internal Med Progress Note ---
Date of Encounter: 09/30/17 Time of Encounter: 14:59 - Assessment and plan (1) CVA (cerebral vascular accident) Current Visit: Yes Status: Acute Assessment and plan: improving right sided weakness. No new neurological deficits. Continue PT\OT\ ST. Will follow progress. Follow up with neuro scheduled. . Qualifiers: CVA mechanism: unspecified Qualified Code(s): I63.9 - Cerebral infarction, unspecified (2) Diabetes Current Visit: Yes Status: Chronic Assessment and plan: Controlled. glucose running between 100-130. Continue to monitor fingerstick blood sugar. Continue current medications. Will adjust as necessary. Qualifiers: Diabetes mellitus type: type 2 Diabetes mellitus half-way insulin use: without truck terminal manager use Diabetes mellitus complication status: with unspecified complications Qualified Code(s): E11.8 - Type 2 diabetes mellitus with unspecified complications (3) Hypertension Current Visit: Yes Status: Chronic Assessment and plan: Controlled with current medication. Continue to monitor blood pressure. Qualifiers: Hypertension type: essential hypertension Qualified Code(s): I10 - Essential (primary) hypertension (4) Obesity Current Visit: Yes Status: Chronic Assessment and plan: continue education Qualifiers: Obesity type: due to excess calories Qualified Code(s): E66.01 - Morbid ( severe) obesity due to excess calories; Z68.35 - Body mass index (BMI) 35.0-35.9 , adult; Z68.35 - Body mass index (BMI) 35.0-35.9, adult (5) Insomnia Current Visit: Yes Status: Acute Assessment and plan: improving Qualifiers: Insomnia type: primary Qualified Code(s): F51.01 - Primary insomnia (6) Right arm pain Current Visit: Yes Status: Acute Assessment and plan: improving. Continue Lidoderm patch. - Time Spent With Patient less than 15 minutes - Subjective Interval history: continues to make slow progress with therapy. states slept much better last night. denies any complaints at this time. - Constitutional Vitals: Temp Pulse Resp BP Pulse Ox 97.6 F 73 16 171/80 91 09/30/17 07:00 09/30/17 07:00 09/29/17 19:45 09/30/17 07:00 09/30/17 07:00 General appearance: Present: cooperative, morbidly obese, pleasant, answers questions appropriately - Head Head exam: Present: atraumatic, normocephalic - Eye Eye exam: Present: PERRL, conjuntiva pink, sclera anicteric Pupils: Present: PERRL - Neck Neck exam general surgery: Present: supple, trachea midline. Absent: lymphadenopathy - Respiratory Respiratory exam: Present: CTAB. Absent: accessory muscle use, rales, rhonchi, wheezes - Cardiovascular Cardiovascular exam: Present: RRR, +S1, +S2. Absent: diastolic murmur, gallop, rubs, systolic murmur - GI/Abdominal GI/Abdominal exam: Present: normal bowel sounds, soft, no peritoneal signs. Absent: distended, tenderness - Extremities Exam Extremities exam: Present: warm, radial pulses palpable and symmetrical. Absent : calf tenderness, cyanotic, pedal edema - Neurological Exam Neurological exam: Present: CN II-XII intact, oriented X3, no focal deficits. Absent: pronater drift, facial droop, speech deficit - Skin Skin exam: Present: dry, intact Internal Medicine: Result - Labs CBC & Chem 7: 09/21/17 05:35 09/28/17 05:47 - ABG Interpretation ABG results: PT/INR, D-dimer PT 12.4 Seconds (9.4-12.1) H 08/13/17 06:48 - VTE Documentation of Mechanical Device: Graduated compression elastic hosiery Consult Discharge Plan - Plan Referrals: Ambika Underwood MD [Primary Care Provider] -
[2017-09-30] MEDS: Melatonin 3 MG TABLET PO SCH (20:48)
[2017-09-30] MEDS: traZODone 50 MG TABLET PO SCH (20:49)
[2017-09-30] MEDS: Gabapentin 400 MG CAPSULE PO SCH (20:49)
[2017-09-30] MEDS: tiZANidine 4 MG TABLET PO PRN (20:50)
[2017-10-01] MEDS: *HR* HYDROcodone/Acet 5/325 mg TABLET PO PRN ×5 (00:46→20:06)
[2017-10-01] MEDS: *HR* Heparin 5,000 UNIT/ML VIAL SQ SCH ×2 (04:36→16:57)
[2017-10-01] MEDS: *HR* Metformin 500 MG TABLET PO SCH ×2 (08:33→16:56)
[2017-10-01] MEDS: Lisinopril 20 MG TABLET PO SCH (08:33)
[2017-10-01] MEDS: Nicotine 7 MG PATCH.TD24 TD SCH (08:33)
[2017-10-01] MEDS: Aspirin 81 MG TAB.CHEW PO SCH (08:33)
[2017-10-01] MEDS: Cholecalciferol (D-3) 1,000 UNIT TABLET PO SCH (08:33)
[2017-10-01] MEDS: Nystatin POWDER 30 GM BOTTLE TP SCH ×2 (08:34→20:07)
--- NOTE | 2017-10-01 09:48 | Internal Med Progress Note ---
Date of Encounter: 10/01/17 Time of Encounter: 09:46 - Assessment and plan (1) CVA (cerebral vascular accident) Current Visit: Yes Status: Acute Assessment and plan: improving right sided weakness. No new neurological deficits. Continue PT\OT\ ST. Will follow progress. Follow up with neuro scheduled. . Planning for discharge tomorrow to home Qualifiers: CVA mechanism: unspecified Qualified Code(s): I63.9 - Cerebral infarction, unspecified (2) Diabetes Current Visit: Yes Status: Chronic Assessment and plan: Controlled. glucose running between 100-130. Continue to monitor fingerstick blood sugar. Continue current medications. Will adjust as necessary. Qualifiers: Diabetes mellitus type: type 2 Diabetes mellitus termite helper insulin use: without termite helper use Diabetes mellitus complication status: with unspecified complications Qualified Code(s): E11.8 - Type 2 diabetes mellitus with unspecified complications (3) Hypertension Current Visit: Yes Status: Chronic Assessment and plan: Controlled with current medication. Continue to monitor blood pressure. Qualifiers: Hypertension type: essential hypertension Qualified Code(s): I10 - Essential (primary) hypertension (4) Obesity Current Visit: Yes Status: Chronic Assessment and plan: continue education Qualifiers: Obesity type: due to excess calories Qualified Code(s): E66.01 - Morbid ( severe) obesity due to excess calories; Z68.35 - Body mass index (BMI) 35.0-35.9 , adult; Z68.35 - Body mass index (BMI) 35.0-35.9, adult (5) Insomnia Current Visit: Yes Status: Acute Assessment and plan: improving. Continue current medication. Qualifiers: Insomnia type: primary Qualified Code(s): F51.01 - Primary insomnia (6) Right arm pain Current Visit: Yes Status: Acute Assessment and plan: improving. Continue Lidoderm patch. will discuss with PMR about EMG. - Time Spent With Patient less than 15 minutes - Subjective Interval history: continues to make slow progress with therapy. States he did not sleep as well last night again. Complains of increased pain off and on throughout the day yesterday in right ring finger. Relieved with ice and rest. Will discuss with Dr. Lancaster about possible EMG. Ambulating with Walker with therapy with standby assist. Continues to wear braces on right foot. Scheduled for discharge tomorrow. Denies fever, chills, nausea, vomiting, diarrhea, chest pain or shortness of breath. - Constitutional Vitals: Temp Pulse Resp BP Pulse Ox 97.5 F L 57 18 125/68 95 10/01/17 07:00 10/01/17 07:00 10/01/17 07:00 10/01/17 07:00 10/01/17 07:00 General appearance: Present: cooperative, A&O X 3, morbidly obese, pleasant, answers questions appropriately - Head Head exam: Present: atraumatic, normocephalic - Eye Eye exam: Present: PERRL, conjuntiva pink, sclera anicteric Pupils: Present: PERRL - Neck Neck exam general surgery: Present: supple, trachea midline. Absent: lymphadenopathy - Respiratory Respiratory exam: Present: CTAB. Absent: accessory muscle use, rales, rhonchi, wheezes - Cardiovascular Cardiovascular exam: Present: RRR, +S1, +S2. Absent: diastolic murmur, gallop, rubs, systolic murmur - GI/Abdominal GI/Abdominal exam: Present: normal bowel sounds, soft, no peritoneal signs. Absent: distended, tenderness - Extremities Exam Extremities exam: Present: warm, radial pulses palpable and symmetrical. Absent : calf tenderness, cyanotic, pedal edema Additional comments: Right lower extremity nonpitting edema. - Neurological Exam Neurological exam: Present: CN II-XII intact, oriented X3, no focal deficits. Absent: pronater drift, facial droop, speech deficit - Skin Skin exam: Present: dry, intact Internal Medicine: Result - Labs CBC & Chem 7: 09/21/17 05:35 09/28/17 05:47 - ABG Interpretation ABG results: PT/INR, D-dimer PT 12.4 Seconds (9.4-12.1) H 08/13/17 06:48 - VTE Documentation of Mechanical Device: Graduated compression elastic hosiery Consult Discharge Plan - Plan Referrals: Ambika Underwood MD [Primary Care Provider] -
[2017-10-01] MEDS: tiZANidine 4 MG TABLET PO PRN ×2 (13:57→20:06)
[2017-10-01] MEDS: Melatonin 3 MG TABLET PO SCH (20:06)
[2017-10-01] MEDS: Gabapentin 400 MG CAPSULE PO SCH (20:06)
[2017-10-01] MEDS: traZODone 50 MG TABLET PO SCH (20:06)
[2017-10-02] MEDS: *HR* Heparin 5,000 UNIT/ML VIAL SQ SCH (06:23)
[2017-10-02 07:52] VITALS: BP 167/84
--- NOTE | 2017-10-02 07:59 | Physician Discharge Referral ---
Home Health/Hosp Referral Info Transfer to: Home Health Provider in Charge Post Discharge: PCP - Diagnosis (1) CVA (cerebral vascular accident) Priority: Primary Status: Acute (2) Diabetes Priority: Secondary Status: Chronic (3) Hypertension Priority: Secondary Status: Chronic (4) Slow transit constipation Priority: Secondary Status: Resolved (5) Insomnia Priority: Secondary Status: Acute (6) Paresthesia of right upper extremity Priority: Secondary Status: Acute - Respiratory Orders Smoking Cessation: Smoking cessation has been advised. For more information, call the [place] Tobacco Quit Line at 7-300-OQCX-NOW. - Diet/Nutrition Diet/Nutrition Orders: No Concentrated Sweets Diet/Nutrition: List: ADA. - Activity Activity Orders: Walker - Services Needed Following services are medically necessary services: Nursing, Physical Therapy, Occupational Therapy Home Care Orders: Okay for home health to start early next week. - Transfer Medications Prescriptions: DiphenhydraMINE [Benadryl] 25 mg PO Q4HR PRN 30 Days #60 capsule PRN Reason: Itching HYDROcodone/Acet 5/325 mg [Otter 5-325 mg] 1 tab PO Q4HR PRN 7 Days #28 tablet PRN Reason: Pain Aspirin 81 mg PO DAILY #30 tab.chew Atorvastatin [Lipitor] 10 mg PO HS #30 tablet Bisacodyl [Dulcolax] 15 mg PO DAILY PRN #30 tablet PRN Reason: Constipation Cholecalciferol (D-3) [Vitamin D] 5,000 unit PO DAILY #120 tablet Clopidogrel [Plavix] 75 mg PO DAILY #30 tablet Docusate [Colace] 100 mg PO BID PRN #60 capsule PRN Reason: Constipation Gabapentin [Neurontin] 800 mg PO HS 30 Days #30 capsule Lidocaine Patch [Lidoderm 5% patch] 1 each TP HS #30 adh..patch Lisinopril [Zestril] 20 mg PO DAILY #30 tablet Melatonin 6 mg PO HS #30 tablet metFORMIN [Glucophage] 1,000 mg PO BIDWM #30 tablet Nicotine Patch [Nicoderm] 7 mg TD DAILY #30 patch.td24 Nystatin POWDER [Nystop] 1 appl TP BID #7 bottle Sennosides 8.6 mg PO 1-2XD #60 tablet traZODone [TraZODone] 100 mg PO HS #30 tablet Home Medications: Aspirin 81 mg PO DAILY #30 tab.chew 10/02/17 [Rx] Atorvastatin [Lipitor] 10 mg PO HS #30 tablet 10/02/17 [Rx] Bisacodyl [Dulcolax] 15 mg PO DAILY PRN #30 tablet 10/02/17 [Rx] Cholecalciferol (D-3) [Vitamin D] 5,000 unit PO DAILY #120 tablet 10/02/17 [Rx] Clopidogrel [Plavix] 75 mg PO DAILY #30 tablet 10/02/17 [Rx] DiphenhydraMINE [Benadryl] 25 mg PO Q4HR PRN 30 Days #60 capsule 10/02/17 [Rx] Docusate [Colace] 100 mg PO BID PRN #60 capsule 10/02/17 [Rx] Gabapentin [Neurontin] 800 mg PO HS 30 Days #30 capsule 10/02/17 [Rx] HYDROcodone/Acet 5/325 mg [Otter 5-325 mg] 1 tab PO Q4HR PRN 7 Days #28 tablet 10/02/17 [Rx] Lidocaine Patch [Lidoderm 5% patch] 1 each TP HS #30 adh..patch 10/02/17 [Rx] Lisinopril [Zestril] 20 mg PO DAILY #30 tablet 10/02/17 [Rx] Melatonin 6 mg PO HS #30 tablet 10/02/17 [Rx] Nicotine Patch [Nicoderm] 7 mg TD DAILY #30 patch.td24 10/02/17 [Rx] Nystatin POWDER [Nystop] 1 appl TP BID #7 bottle 10/02/17 [Rx] Sennosides 8.6 mg PO 1-2XD #60 tablet 10/02/17 [Rx] metFORMIN [Glucophage] 1,000 mg PO BIDWM #30 tablet 10/02/17 [Rx] traZODone [TraZODone] 100 mg PO HS #30 tablet 10/02/17 [Rx] Allergies/Adverse Reactions: 3 Allergy/AdvReac Type Severity Reaction Status Date / Time No Known Allergies Allergy Verified 08/12/17 21:59 Certification: Further, I certify that my clinical findings support that this patient is homebound (i.e. absences from home require considerable and taxing effort and are for medical reasons or scientology services or infrequently or short duration when for other reasons) because: Homebound Reason: Leaving home requires considerable and taxing effort due to condition Attestation: My signature below is to certify that this patient is under my care and that I, or nurse practitioner, or a physician's purchasing assistant working with me, has a face-to -face encounter with this patient.
--- NOTE | 2017-10-02 08:18 | Discharge Summary ---
- NOTES TO OUTPATIENT PROVIDER Notes to Outpatient Provider: Patient will need consideration for EMG/MRI to determine if right upper extremity pain is radiculopathy or shoulderhand syndrome. Date of Encounter: 10/02/17 Time of Encounter: 08:15 - Discharge Diagnosis (1) CVA (cerebral vascular accident) Priority: Primary Status: Acute Qualifiers: CVA mechanism: unspecified Qualified Code(s): I63.9 - Cerebral infarction, unspecified (2) Diabetes Priority: Secondary Status: Chronic Qualifiers: Diabetes mellitus type: type 2 Diabetes mellitus termite exterminator insulin use: without longterm use Diabetes mellitus complication status: with unspecified complications Qualified Code(s): E11.8 - Type 2 diabetes mellitus with unspecified complications (3) Hypertension Priority: Secondary Status: Chronic Qualifiers: Hypertension type: essential hypertension Qualified Code(s): I10 - Essential (primary) hypertension (4) Slow transit constipation Priority: Secondary Status: Resolved (5) Insomnia Priority: Secondary Status: Acute Qualifiers: Insomnia type: primary Qualified Code(s): F51.01 - Primary insomnia (6) Paresthesia of right upper extremity Priority: Secondary Status: Acute Hospital course: Mr. Thompson is a 62 year old male who had a left MCA stroke with speech abnormalities and right hemiparesis which was nearly dense, upon arrival. He underwent physical and occupational therapy as well as speech therapy but improved so that speech that quickly signed off. He improved over time and was able to walk with a walker by discharge. He had a right arm and shoulder pain which limited his progress, slightly. However, it did limit his sleep, quite a bit. He received trazodone, gabapentin , melatonin, lidocaine patches, and opioids for this problem. MRI to make sure he had no radiculopathy of his neck was ordered but he could not undergo this because of the size of local, portable, MRI. EMG could also not be locally obtained. Constipation was a frequent problem and the patient was on Colace, senna, and MiraLAX when necessary. He averaged a bowel movement every other day. During hospitalization, he followed a diabetic diet and his sugar was well- controlled on Glucophage with no real need for sliding scale insulin. He lost over 40 pounds while hospitalized. He was placed on nicotine patches and is highly motivated to stop smoking. He will be discharged on a low-dose nicotine patch. He was stable at the time of discharge, without acute issue. He was looking forward to his continued improvement at home. - Time Spent with Patient Total time spent providing and/or coordinating discharge services: - Discharge Medications Prescriptions: DiphenhydraMINE [Benadryl] 25 mg PO Q4HR PRN 30 Days #60 capsule PRN Reason: Itching HYDROcodone/Acet 5/325 mg [Henley 5-325 mg] 1 tab PO Q4HR PRN 7 Days #28 tablet PRN Reason: Pain Aspirin 81 mg PO DAILY #30 tab.chew Atorvastatin [Lipitor] 10 mg PO HS #30 tablet Bisacodyl [Dulcolax] 15 mg PO DAILY PRN #30 tablet PRN Reason: Constipation Cholecalciferol (D-3) [Vitamin D] 5,000 unit PO DAILY #120 tablet Clopidogrel [Plavix] 75 mg PO DAILY #30 tablet Docusate [Colace] 100 mg PO BID PRN #60 capsule PRN Reason: Constipation Gabapentin [Neurontin] 800 mg PO HS 30 Days #30 capsule Lidocaine Patch [Lidoderm 5% patch] 1 each TP HS #30 adh..patch Lisinopril [Zestril] 20 mg PO DAILY #30 tablet Melatonin 6 mg PO HS #30 tablet metFORMIN [Glucophage] 1,000 mg PO BIDWM #30 tablet Nicotine Patch [Nicoderm] 7 mg TD DAILY #30 patch.td24 Nystatin POWDER [Nystop] 1 appl TP BID #7 bottle Sennosides 8.6 mg PO 1-2XD #60 tablet traZODone [TraZODone] 100 mg PO HS #30 tablet Home Medications: Aspirin 81 mg PO DAILY #30 tab.chew 10/02/17 [Rx] Atorvastatin [Lipitor] 10 mg PO HS #30 tablet 10/02/17 [Rx] Bisacodyl [Dulcolax] 15 mg PO DAILY PRN #30 tablet 10/02/17 [Rx] Cholecalciferol (D-3) [Vitamin D] 5,000 unit PO DAILY #120 tablet 10/02/17 [Rx] Clopidogrel [Plavix] 75 mg PO DAILY #30 tablet 10/02/17 [Rx] DiphenhydraMINE [Benadryl] 25 mg PO Q4HR PRN 30 Days #60 capsule 10/02/17 [Rx] Docusate [Colace] 100 mg PO BID PRN #60 capsule 10/02/17 [Rx] Gabapentin [Neurontin] 800 mg PO HS 30 Days #30 capsule 10/02/17 [Rx] HYDROcodone/Acet 5/325 mg [Henley 5-325 mg] 1 tab PO Q4HR PRN 7 Days #28 tablet 10/02/17 [Rx] Lidocaine Patch [Lidoderm 5% patch] 1 each TP HS #30 adh..patch 10/02/17 [Rx] Lisinopril [Zestril] 20 mg PO DAILY #30 tablet 10/02/17 [Rx] Melatonin 6 mg PO HS #30 tablet 10/02/17 [Rx] Nicotine Patch [Nicoderm] 7 mg TD DAILY #30 patch.td24 10/02/17 [Rx] Nystatin POWDER [Nystop] 1 appl TP BID #7 bottle 10/02/17 [Rx] Sennosides 8.6 mg PO 1-2XD #60 tablet 10/02/17 [Rx] metFORMIN [Glucophage] 1,000 mg PO BIDWM #30 tablet 10/02/17 [Rx] traZODone [TraZODone] 100 mg PO HS #30 tablet 10/02/17 [Rx] Allergies/Adverse Reactions: 3 Allergy/AdvReac Type Severity Reaction Status Date / Time No Known Allergies Allergy Verified 08/12/17 21:59 Date of admission: 08/12/17 18:05 Primary care physician: Ambika Underwood MD Consults: 08/12/17 22:32 Consult to Occupational Therapy [CONS] Routine Comment: Evaluate, develop and implement POC Reason for Consult: Eval and Treat Does patient have active BEDREST order?: No Is patient medically & hemodynamically stable?: Yes Patient assessed for mobility or mobilized this visit?: No Consult to Physical Therapy [CONS] Routine Comment: Evaluate, develop and implement POC Reason for Consult: Eval and Treat Does patient have active BEDREST order?: No Is patient medically & hemodynamically stable?: Yes Patient assessed for mobility or mobilized this visit?: No Consult to Hairspring Adjuster [CONS] Routine Reason for SW Consult: Discharge Planning Consult to Speech Therapy [CONS] Routine Comment: Evaluate, develop and implement POC Reason for Consult: speech impairment Call Completed: Yes 08/19/17 15:12 Consult to Physical Medicine/Rehab [CONS] Routine Reason for Consult: cva Call Completed: Yes 09/15/17 15:05 Consult to Recreational Therapy [CONS] Routine Comment: Discharging clinician: Bob Singh Anticipated date of discharge: 10/02/17 - Constitutional Vitals: Temp Pulse Resp BP Pulse Ox 97.7 F 64 16 167/84 94 10/02/17 06:00 10/02/17 06:00 10/02/17 06:00 10/02/17 06:00 10/02/17 06:00 General appearance: Present: cooperative, A&O X 3, morbidly obese, pleasant, answers questions appropriately Exam: Examination: (Except as mentioned above): General: In no apparent distress. Alert and oriented 3. Nondiaphoretic. Head: Atraumatic and normocephalic. Mouth: Missing most teeth, few maxillary teeth. Respiratory: No use of accessory muscles. Lungs are clear throughout. Normal airflow. Cardiovascular: Regular rate and rhythm without murmur appreciated. Abdomen: Bowel sounds are normal. No hepatosplenomegaly mass or tenderness appreciated. Obese and therefore difficult to palpate deeply. Patient is examined upright at bedside and this also limits exam. Extremities: No cyanosis clubbing or change in edema. Has minimal right hand edema and lower extremity edema is also minimal, compared to baseline. Skin: Warm and non-diaphoretic with no new lesions noted. Neurological: Patient still with right hemiparesis but now 4+/5, ataxia is still prominent. Minimal right facial droop. - Patient Status Disposition: Home Health Service Condition: Good Functional capacity at discharge: wheelchair bound Overall status at discharge: patient is progressing back to baseline - Discharge Instructions Follow Up With: Ambika Underwood MD [Primary Care Provider] - - VTE Documentation of Mechanical Device: Graduated compression elastic hosiery
[2017-10-02] MEDS: *HR* Metformin 500 MG TABLET PO SCH (08:42)
[2017-10-02] MEDS: Cholecalciferol (D-3) 1,000 UNIT TABLET PO SCH (08:43)
[2017-10-02] MEDS: Nicotine 7 MG PATCH.TD24 TD SCH (08:43)
[2017-10-02] MEDS: Lisinopril 20 MG TABLET PO SCH (08:43)
[2017-10-02] MEDS: *HR* HYDROcodone/Acet 5/325 mg TABLET PO PRN (08:43)
[2017-10-02] MEDS: Aspirin 81 MG TAB.CHEW PO SCH (08:44)
[2017-10-02] MEDS: Nystatin POWDER 30 GM BOTTLE TP SCH (08:44)
== END 2017-10-02 16:00 | disposition home health service (06) | DRG 57 ==
LOC: INPGRE 18:05